=== PATIENT | female | born 1980 | race Asian ===

== ENCOUNTER 2020-08-30 14:51 | Emergency (ER) | payer OTHER, SELFPAY ==
[2020-08-30 15:10] VITALS: BP 143/95; PULSE 90; RESP 17; TEMP 37.4; O2SAT 96; BMI 33.6
--- NOTE | 2020-08-30 15:27 | ED.URI ---
HPI - URI/Sore Throat General Chief Complaint: Upper Respiratory Symptoms Stated Complaint: sore throat,body ache,dizzy Time Seen by Provider: 08/30/20 15:00 Source: patient Mode of arrival: ambulatory Limitations: no limitations History of Present Illness HPI Narrative: bodyaches for past 2 days, lightheaded MD elicited complaint: fever Onset (ago): day(s) Consistency: constant Severity: mild Associated symptoms: chills Related Data Allergies Allergy/AdvReac Type Severity Reaction Status Date / Time No Known Allergies Allergy Mild NOT Unverified 07/15/20 16:57 [No Known Allergies*] APPLICABLE Review of Systems Constitutional: Constitutional: Reports no additional constitutional complaints Eyes: Eyes: Reports no additional eye complaints ENT: Denies dizziness Cardiovascular: Cardiovascular: Reports no additional cardiovascular complaints Respiratory: Respiratory: Reports as per HPI Gastrointestinal: Gastrointestinal: Reports no additional gastrointestinal complaints Genitourinary: Genitourinary: Reports no additional female genitourinary complaints Musculoskeletal: Musculoskeletal: Reports no additional musculoskeletal complaints Integumentary/Breasts: Skin/Breast: Denies rash Neurologic: Reports system reviewed and no additional complaints, except as documented, Denies dizziness and Denies Sensory deficit (Neuro) Psychiatric: Psychiatric: Denies anxiety PMF Past Medical History Medical History (Updated 08/30/20 @ 15:43 by Vinicio Solano MD) HTN (hypertension) Social History Social History Smoking Status: Never smoker Use of substances other than those prescribed or required for medical reasons: No Advance Directives: No Advance Directives Information Provided: Yes Physical Exam Vital Signs: Vital Signs: Vital Signs Temp Pulse Resp BP Pulse Ox 08/30/20 15:10 99.3 F 90 17 143/95 H 96 Body Mass Index 33.6 Const: General: healthy appearing Nutritional Appearance: average body habitus Orientation/consciousness: oriented to person and patient oriented x3 Limitations: no limitations HENMT: Head: Yes normal to inspection Ears: external ears normal General nose exam: Normal external nose present Mouth: Normal oral and palatal mucosa present and oropharynx normal Throat: Yes posterior oropharynx normal Eyes: General: appearance normal, both eyes and all related structures Neck: Other: supple Neck: Yes normal visual inspection Chest: Chest palpation & inspection: normal inspection of the chest Resp: Auscultation: clear to auscultation bilaterally Cardio: Jugular venous distension: no JVD Rate: regular rate Rhythm: regular rhythm Heart sounds: S1 normal heart sound present and S2 normal heart sound present GI: Inspection: Yes normal to inspection Palpation (GI): Soft to palpation, nontender and No hepatosplenomegaly present Auscultation: normal bowel sounds : General: Yes no CVA tenderness Back/Spine/Pelvis: Back: no CVA tenderness Skin: General skin exam: no rashes or lesions noted Neuro: General: oriented to person and patient oriented x3 Cranial nerves: Yes CN's II-XII intact bilaterally Motor exam (neuro): 5/5 motor strength present throughout Sensory Exam: No Sensory deficit (Neuro) Extrem: General: Yes normal to inspection Psych: Appearance: grossly normal Course Course Course Narrative: patient is weak and tired consistent with COVID MDM - URI/Sore Throat MDM Narrative Medical decision making narrative: likely COVID, not hypoxic or toxic appearing Differential Diagnosis Differential diagnosis: Likely upper respiratory infection Discharge Plan Discharge Clinical Impression: COVID-19 Patient Disposition: Home, Self-Care Instructions: COVID-19 (Coronavirus Disease 2019) (ED) Referrals: Liza Mosquera MD [Primary Care Provider] - 2 days
--- NOTE | 2020-08-30 16:07 | PC.NURSE ---
patient seen and evaluated by provider, covid swab completed. patient discharged yet states very dizzy. will f/u with provider
[2020-08-30 16:25] VITALS: BP 145/98; PULSE 80; RESP 19; TEMP 37.1; O2SAT 98
[2020-08-30 16:28] VITALS: BP 149/97; PULSE 94
== END 2020-08-30 16:40 | disposition home or self-care (01) ==
PROVIDERS: Emergency Provider Emergency Medicine; PCP Internal Medicine
DX: U07.1 COVID-19 (principal); R42 Dizziness and giddiness
CPT/HCPCS: 99283; U0003

== ENCOUNTER 2020-09-02 10:48 | Emergency (ER) | payer OTHER, SELFPAY ==
[2020-09-02 11:05] VITALS: BP 140/107; BP 146/89; PULSE 84; PULSE 99; RESP 22; TEMP 37.1; O2SAT 100; O2SAT 99; BMI 33.4
--- NOTE | 2020-09-02 11:15 | XR_ITS ---
EXAMINATION: XR CHEST CLINICAL INFORMATION: Shortness of breath, COVID+ COMPARISON: Chest radiographs 05/12/2019, 01/29/2019, CT abdomen 06/01/2020 TECHNIQUE: Portable upright AP view of the chest was obtained. FINDINGS: There are low lung volumes. There is likely subsegmental atelectasis right lateral base versus subtle groundglass opacity. There is no lobar or segmental airspace consolidation or visible effusion. The heart is normal in size. The vascularity is normal. The hilar and mediastinal contours are normal. No visible acute bony abnormality. XR/XR chest 1V IMPRESSION: Low lung volumes. Subsegmental atelectasis right lateral base versus small groundglass opacity. Visualized lungs otherwise clear.
--- NOTE | 2020-09-02 11:16 | ED.GENADULT ---
HPI - General Adult General Chief complaint: Dyspnea Stated complaint: SOB, COVID + Time Seen by Provider: 09/02/20 10:57 Source: patient Mode of arrival: EMS Limitations: no limitations History of Present Illness HPI narrative: patient comes to the emergency room complaining of shortness of breath. Patient tested positive for COVID 19 on 08/30/2020. Patient states since then, she has developed cough and shortness of breath which she did not have before. MD complaint: Dyspnea Related Data Previous Rx's Medication Instructions Recorded azithromycin See Rx Instructions .ROUTE 09/02/20 .COMPLEX #6 tab Allergies Allergy/AdvReac Type Severity Reaction Status Date / Time No Known Allergies Allergy Mild NOT Unverified 07/15/20 16:57 [No Known Allergies*] APPLICABLE Review of Systems Review of Systems: Constitutional : No Weight loss, complaining of chills, fatigue and general malaise ENT/Mouth : No Hearing loss, No Ear Pain, No Nasal Congestion, No Sinus Pain, No Hoarseness, No sore throat, No Rhinorrhea, No Swallowing Difficulty Eyes: No Eye Pain, No Swelling, No Redness, No Foreign Body, No Discharge, No Vision Changes Cardiovascular : No Chest Pain, No SOB, No Dyspnea on Exertion, No Orthopnea, No Edema, No Palpitations Respiratory : patient complaining of more coughing, no wheezing, continues dyspnea regardless of exertion Gastrointestinal : No Nausea, No Vomiting, No Diarrhea, No Constipation, No abdominal Pain, No Hematochezia, No Melena Genitourinary : no irregular bleeding, No Dysuria, No Urinary Frequency, No Hematuria, No Urinary Incontinence, No Urgency, No Flank Pain, No Urinary Flow Changes, No Hesitancy Musculoskeletal : No joint pain, No Myalgias, No Joint Swelling Skin : No Skin Lesions, No rash Neuro : No Weakness, No Numbness, No Paresthesias, No Loss of Consciousness, No Dizziness, No Headache Psych : No Anxiety/Panic, No Depression, No SI/HI/AH/VH, No Social Issues, Heme/Lymph: No Bruising, No Bleeding,No Lymphadenopathy Endocrine : No Polyuria, No Polydipsia, No Temperature Intolerance PMFSH Past Medical History Medical History (Updated 09/02/20 @ 13:59 by Kayla Leo MD) HTN (hypertension) Social History Social History Smoking Status: Never smoker Advance Directives: No Advance Directives Information Provided: No Physical Exam Vital Signs: Vital Signs: Vital Signs Temp Pulse Resp BP Pulse Ox 09/02/20 12:14 98.7 F 83 16 142/88 H 99 09/02/20 11:05 98.7 F 99 22 H 146/89 H 99 Body Mass Index 33.4 Appearance: Alert. Oriented X3. No acute distress. anxious. Eyes: Pupils equal, round and reactive to light. ENT: Pharynx normal. Neck: Normal inspection. Neck supple. No lymph nodes noted. No crepitus CVS: Normal heart rate and rhythm. Pulses normal. Normal S1 and S2 Respiratory: No respiratory distress. Breath sounds normal. No Wheezing. No rales Abdomen: Soft and nontender. No rigidity. No distention. good BS x4 Skin: Skin warm and dry. Normal skin color. Normal skin turgor. Extremities: No lower extremity edema. No lower extremity edema. No Lacerations. No Rash Neuro: Oriented X 3. No motor deficit. No sensory deficit. Moving all extermities. No slurred speech. Course Course Course Narrative: I discussed the labs imaging with the patient, chest x-ray consistent with COVID 19. patient's oxygen saturation remains 97% on room air. At this time PE is unlikely, D-dimer 221, patient is tachycardic. patient will be discharged home with antibiotic. Medical Decision Making Lab Data Result diagrams: 09/02/20 12:02 09/02/20 12:02 Labs: Lab Results 09/02/20 09/02/20 09/02/20 Range/Units 12:02 12:02 12:02 WBC 4.2 L (4.8-10.8) X10*3/uL RBC 5.16 (4.20-5.50) X10*6/uL Hgb 12.9 (12.0-16.0) g/dl Hct 39.5 (37-47) % MCV 76.6 L (80-98) fL MCH 25.0 L (27.0-33.0) pg MCHC 32.7 (31.0-35.0) g/dl RDW 14.2 (11.0-16.0) % Plt Count 230 (160-400) X10*3/uL MPV 10.1 (9.4-12.3) fL Immature Gran % (Auto) 0.2 (0.0-0.4) % Neut % (Auto) 60.5 (45-73) % Lymph % (Auto) 30.9 (20-40) % Jefferson % (Auto) 8.2 (2-11) % Eos % (Auto) 0.0 (0-4) % Baso % (Auto) 0.2 (0-2) % Lymph # (Auto) 1.3 (1.2-4.9) X10*3/uL Jefferson # (Auto) 0.3 (0.1-1.2) X10*3/uL Eos # (Auto) 0.0 (0.0-0.4) X10*3/uL Baso # (Auto) 0.0 (0.0-0.2) X10*3/uL Abs Immat Gran (auto) 0.01 (0.00-0.03) X10*3/uL Absolute Neuts (auto) 2.5 (2.0-8.3) X10*3/uL Absolute Nucleated RBC 0.000 (0.0-0.012) X10*3/uL Nucleated RBC % (auto) 0.0 (0.0-0.2) /100WBC D-Dimer 221 NG/ML Sodium 138 (135-145) mmol/L Potassium 3.5 (3.3-5.1) mmol/l Chloride 104 (96-108) mmol/L Carbon Dioxide 24 (22-29) mmol/L Anion Gap 14 (12-20) BUN 8 L (9-16) mg/dL Creatinine 0.73 (0.5-1.4) mg/dL Estim Creat Clear Calc 110.2 Estimated GFR > 60 Random Glucose 95 (60-115) mg/dL Calcium 7.9 L (8.4-10.2) mg/dL Discharge Plan Discharge Clinical Impression: COVID-19 Patient Disposition: Home, Self-Care Instructions: COVID-19 (Coronavirus Disease 2019) (ED) Additional Instructions: if you have any worsening shortness of breath, any new symptoms, please return to the emergency room or call 911 Prescriptions: New azithromycin 250 mg tablet See Rx Instructions .ROUTE .COMPLEX Qty: 6 RF: 0
[2020-09-02 12:07] LABS: MANUAL DIFF FLAG NO
[2020-09-02 12:11] LABS: Basophils Percent Auto 0.2 % (0-2); Hematocrit 39.5 % (37-47); Hemoglobin 12.9 g/dl (12.0-16.0); Imm Gran Abs Auto 0.01 X10*3/uL (0.00-0.03); Imm Gran Pct Auto 0.2 % (0.0-0.4); Lymphocytes Absolute Auto 1.3 X10*3/uL (1.2-4.9); Lymphocytes Percent Auto 30.9 % (20-40); Mean Corpuscular HGB Conc 32.7 g/dl (31.0-35.0); Mean Corpuscular Volume 76.6 fL (80-98); Mean Platelet Volume 10.1 fL (9.4-12.3); Monocytes Absolute Auto 0.3 X10*3/uL (0.1-1.2); Monocytes Percent Auto 8.2 % (2-11); Neutrophils Absolute Auto 2.5 X10*3/uL (2.0-8.3); Neutrophils Percent Auto 60.5 % (45-73); Platelet Count 230 X10*3/uL (160-400); Red Blood Count 5.16 X10*6/uL (4.20-5.50); Red Cell Distribution Width 14.2 % (11.0-16.0); White Blood Count 4.2 X10*3/uL (4.8-10.8)
[2020-09-02 12:14] VITALS: BP 142/88; PULSE 83; RESP 16; TEMP 37.1; O2SAT 99
[2020-09-02 12:17] LABS: D Dimer 221 NG/ML
[2020-09-02 12:29] LABS: Anion Gap 14 (12-20); Blood Urea Nitrogen 8 mg/dL (9-16); Calcium 7.9 mg/dL (8.4-10.2); Carbon Dioxide 24 mmol/L (22-29); Chloride 104 mmol/L (96-108); Creatinine Clr Calc Pharmacy 110.2; Estimated Glomerular Filt Rate > 60; Glucose Random 95 mg/dL (60-115); Potassium 3.5 mmol/l (3.3-5.1); Sodium 138 mmol/L (135-145)
[2020-09-02] MEDS: Acetaminophen 325 MG TABLET 650 MG PO (15:08)
[2020-09-02 15:35] VITALS: BP 117/72; PULSE 88; RESP 16; TEMP 37.2; O2SAT 98
== END 2020-09-02 15:38 | disposition home or self-care (01) ==
PROVIDERS: Emergency Provider Emergency Medicine
DX: R06.02 Shortness of breath (principal); Z20.828 Contact with and (suspected) exposure to other viral communicable diseases
CPT/HCPCS: 36415; 71045; 80048; 85025; 85379; 99283; 99284

== ENCOUNTER 2020-09-12 11:09 | Emergency (ER) | payer OTHER, SELFPAY ==
[2020-09-12 11:31] VITALS: BP 138/84; PULSE 76; RESP 20; TEMP 36.4; O2SAT 99; BMI 33.6
--- NOTE | 2020-09-12 11:50 | ECG_ITS ---
Test Reason : WEAKNESS Blood Pressure : / mmHG Vent. Rate : 057 BPM Atrial Rate : 057 BPM P-R Int : 150 ms QRS Dur : 084 ms QT Int : 414 ms P-R-T Axes : 014 054 069 degrees QTc Int : 402 ms Sinus bradycardia Otherwise normal ECG When compared with ECG of 12-MAY-2019 20:33, No significant change was found Referred By: Cindy Galarza Electronically Signed By:LUIS NJ MD
[2020-09-12 12:12] VITALS: BP 142/80; PULSE 65
[2020-09-12 12:15] VITALS: BP 151/88; PULSE 65
[2020-09-12 12:17] VITALS: BP 134/76; PULSE 68
[2020-09-12 12:35] LABS: Basophils Percent Auto 0.5 % (0-2); Eosinophils Percent Auto 0.7 % (0-4); Hematocrit 39.6 % (37-47); Hemoglobin 12.9 g/dl (12.0-16.0); Imm Gran Abs Auto 0.03 X10*3/uL (0.00-0.03); Imm Gran Pct Auto 0.5 % (0.0-0.4); Lymphocytes Absolute Auto 1.7 X10*3/uL (1.2-4.9); Lymphocytes Percent Auto 28.5 % (20-40); MANUAL DIFF FLAG NO; Mean Corpuscular HGB Conc 32.6 g/dl (31.0-35.0); Mean Corpuscular Hemoglobin 25.3 pg (27.0-33.0); Mean Corpuscular Volume 77.6 fL (80-98); Mean Platelet Volume 9.4 fL (9.4-12.3); Monocytes Absolute Auto 0.3 X10*3/uL (0.1-1.2); Monocytes Percent Auto 5.8 % (2-11); Neutrophils Absolute Auto 3.8 X10*3/uL (2.0-8.3); Platelet Count 349 X10*3/uL (160-400); Red Cell Distribution Width 14.4 % (11.0-16.0); White Blood Count 5.9 X10*3/uL (4.8-10.8)
[2020-09-12 12:43] LABS: Prothrombin Time 12.4 SEC (10.8-13.0)
--- NOTE | 2020-09-12 12:45 | ED.DIZZY ---
HPI - Dizziness General Chief Complaint: Dizziness Stated Complaint: WEAKNESS COVID 19 POS Time Seen by Provider: 09/12/20 11:49 Source: patient Mode of arrival: ambulatory Limitations: no limitations History of Present Illness HPI Narrative: 39yoF c PMHX of HTN, ovarian cyst, kidney stones and currently COVID positive diagnosed on 08/30/2020 here in the ED presenting to the ED c c/o dizziness c associated SOB on exertion days worse today. Denies shortness of breath while sitting still or lying down. Patient reports the dizziness is all the time it is not relieved by anything. Denies changes in vision, nausea/vomiting, chest pain, cough, sputum production, abdominal pain, diarrhea or any other symptoms complaints or concerns. Related Data Previous Rx's Medication Instructions Recorded azithromycin See Rx Instructions .ROUTE 09/02/20 .COMPLEX #6 tab acetaminophen [Tylenol] 650 mg PO Q6H PRN #10 tab 09/12/20 albuterol sulfate 0.63 mg INHALATION QID PRN #90 ml 09/12/20 cyclobenzaprine 10 mg PO TID PRN #10 tab 09/12/20 doxycycline monohydrate 100 mg PO BID 10 Days #20 cap 09/12/20 Allergies Allergy/AdvReac Type Severity Reaction Status Date / Time No Known Allergies Allergy Mild NOT Unverified 07/15/20 16:57 [No Known Allergies*] APPLICABLE Review of Systems Review of Systems: Constitutional : No Fever, No Chills, No Night Sweats, + Fatigue, + Malaise ENT/Mouth : No Ear Pain, No Nasal Congestion, No Sinus Pain, No sore throat, No Rhinorrhea Eyes: No Eye Pain, No Swelling, No Redness, No Foreign Body, No Discharge, No Vision Changes Cardiovascular : No Chest Pain, + SOB, + Dyspnea on Exertion, No Orthopnea, No Palpitations Respiratory : No Cough, No Sputum, No Wheezing, No Dyspnea Gastrointestinal : No Nausea, No Vomiting, No Diarrhea, No Constipation, No abdominal Pain, No Hematochezia, No Melena Genitourinary : No Dysuria, No Urinary Frequency, No Urinary Incontinence, No Urgency, No Flank Pain Musculoskeletal : No joint pain, No Myalgias Skin : No lacerations Neuro : No Numbness, No Paresthesias, No Loss of Consciousness, + Dizziness, No Headache Yes all other systems are reviewed and are negative PMFSH Past Medical History Attestation statement: The following information was validated with the patient. Medical History HTN (hypertension) Social History Social History Alcohol intake: unknown Smoking Status: Never smoker Smoked in Last 30 Days: No Use of substances other than those prescribed or required for medical reasons: No Advance Directives: Yes Advance Directives Information Provided: No Advance Directives on File: No Physical Exam Vital Signs: Vital Signs: Last Vital Signs Temp 97.6 F 09/12/20 11:31 Pulse 68 09/12/20 14:41 Resp 16 09/12/20 14:41 BP 140/80 H 09/12/20 14:41 Pulse Ox 99 09/12/20 14:41 Body Mass Index 33.6 Vital signs have been reviewed as normal and appeared to be correct. Blood pressure normal. Heart rate normal. Respiration rate normal. Temperature normal. Oxygen saturation normal. Appearance: Alert. Oriented X3. No acute distress. Head: Normal external exam. Normocephalic. Atraumatic. Able to rotate head bilaterally. Eyes: PERRLA. EOMI. No nystagmus noted. Conjunctiva and sclera normal. Eyelids normal. Corneal reflex normal. ENT: EAC normal. TM's Normal. Hearing normal. Pharynx normal. Uvula midline. tongue midline. Moist mucous membranes. No trismus noted. No drooling noted. No muffled voice noted. Neck: Normal inspection. Neck supple. FROM. No adenopathy. Thyroid Normal. No meningeal signs. No neck mass noted. CVS: Normal heart rate and rhythm. Heart sound normal. No murmurs noted. Pulses normal throughout. Respiratory: No respiratory distress. Painless inspiration. Breath sounds normal. No wheezes/rales/rhonchi noted. Chest nontender. No accessory muscle usage noted or decreased air movement noted. Abdomen: Soft and nontender. Bowel sounds normal in all 4 quadrants. No distention noted. No organomegaly noted. No visible injury noted. Back: No CVA tenderness. Full range of motion noted. Skin: Skin warm and dry. Normal skin color. Normal skin turgor. No rashes/lesions/lacerations noted. Extremities: No lower extremity edema. Extremities exhibit normal range of motion. Extremities nontender. Able to shrug shoulders bilaterally and keep up against resistance. Neuro: Oriented X 3. No motor deficit. No sensory deficit. Reflexes normal. Moving all extremities. No focal motor deficits. Cranial nerves II-XI intact bilaterally. Facial strength normal. Normal cognition. Speech normal. Gait normal. Strength 5/5 throughout. No pronator drift. No tremor noted. No fasciculations noted. Muscle tone normal throughout. No asterixis noted. Huxzel-hn-tsdo test normal. Heel to west test normal. Tandem gait normal. Does not sway with eyes open. Romberg test negative. Rapid alternating movement upper extremity normal. Rapid alternating movement lower extremity normal. Hand drop from overhead-Mrs. face. No rigidity noted. NIHSS score 0. Course Course Course Narrative: 12:30PM - 39yoF c PMHX of HTN, ovarian cyst, kidney stones and currently COVID positive diagnosed on 08/30/2020 here in the ED presenting to the ED c c/o dizziness c associated SOB on exertion days worse today. Denies shortness of breath while sitting still or lying down. Patient reports the dizziness is all the time it is not relieved by anything. - Concern for PE vs PNA vs CVA vs electrolyte abnormality vs orthostatic hypotension. - Plan: Labs, CXR, EKG,UA, UHCG. Provide 500 mL of IV fluids then re-evaluate. Reevaluation(s) Reevaluation #1: - D-Dimer elevated at 265. All other labs WNL. Therefore CTA of chest to evaluate for possible PE ordered at this time. - awaiting CTA of chest to evaluate for possible PE then re-evaluate. Time: 16:25 Reevaluation #2: CT scan of brain within normal limits no acute processes noted. Chest CT revealed lung nodules otherwise no PEs or any other acute processes therefore explained to the patient that she needs a repeat CT with sampling within 3 months and I gave her a copy of this report. Patient understands agrees with plan. Patient reports she feels better after IV fluids. Will DC home with instructions to return if any new or worsening symptoms follow-up with primary care provider about her CT results. Patient understands agrees with this plan. Time: 17:20 [facility] - Dizziness Medical Records Attestation: I reviewed the patient's medical records. Lab Data Attestation: I reviewed the patient's lab results. Result diagrams: 09/12/20 12:29 09/12/20 14:56 Labs: Lab Results 09/12/20 09/12/20 09/12/20 Range/Units 12:29 12:29 12:29 WBC 5.9 (4.8-10.8) X10*3/uL RBC 5.10 (4.20-5.50) X10*6/uL Hgb 12.9 (12.0-16.0) g/dl Hct 39.6 (37-47) % MCV 77.6 L (80-98) fL MCH 25.3 L (27.0-33.0) pg MCHC 32.6 (31.0-35.0) g/dl RDW 14.4 (11.0-16.0) % Plt Count 349 D (160-400) X10*3/uL MPV 9.4 (9.4-12.3) fL Immature Gran % (Auto) 0.5 H (0.0-0.4) % Neut % (Auto) 64.0 (45-73) % Lymph % (Auto) 28.5 (20-40) % [place] % (Auto) 5.8 (2-11) % Eos % (Auto) 0.7 (0-4) % Baso % (Auto) 0.5 (0-2) % Lymph # (Auto) 1.7 (1.2-4.9) X10*3/uL [place] # (Auto) 0.3 (0.1-1.2) X10*3/uL Eos # (Auto) 0.0 (0.0-0.4) X10*3/uL Baso # (Auto) 0.0 (0.0-0.2) X10*3/uL Abs Immat Gran (auto) 0.03 (0.00-0.03) X10*3/uL Absolute Neuts (auto) 3.8 (2.0-8.3) X10*3/uL Absolute Nucleated RBC 0.000 (0.0-0.012) X10*3/uL Nucleated RBC % (auto) 0.0 (0.0-0.2) /100WBC Hold Purple Top SEE NOTE PT (10.8-13.0) SEC INR (0.9-1.1) D-Dimer NG/ML Sodium Cancelled Potassium Cancelled Chloride Cancelled Carbon Dioxide Cancelled Anion Gap Cancelled BUN Cancelled Creatinine Cancelled Estim Creat Clear Calc Cancelled Estimated GFR Cancelled Random Glucose Cancelled Calcium Cancelled Magnesium Total Bilirubin Direct Bilirubin AST ALT Alkaline Phosphatase Troponin I High Sens (<3.5-17.0) ng/L Total Protein Albumin Beta HCG, Quant mIU/mL 09/12/20 09/12/20 09/12/20 Range/Units 12:29 12:29 12:29 WBC (4.8-10.8) X10*3/uL RBC (4.20-5.50) X10*6/uL Hgb (12.0-16.0) g/dl Hct (37-47) % MCV (80-98) fL MCH (27.0-33.0) pg MCHC (31.0-35.0) g/dl RDW (11.0-16.0) % Plt Count (160-400) X10*3/uL MPV (9.4-12.3) fL Immature Gran % (Auto) (0.0-0.4) % Neut % (Auto) (45-73) % Lymph % (Auto) (20-40) % [place] % (Auto) (2-11) % Eos % (Auto) (0-4) % Baso % (Auto) (0-2) % Lymph # (Auto) (1.2-4.9) X10*3/uL [place] # (Auto) (0.1-1.2) X10*3/uL Eos # (Auto) (0.0-0.4) X10*3/uL Baso # (Auto) (0.0-0.2) X10*3/uL Abs Immat Gran (auto) (0.00-0.03) X10*3/uL Absolute Neuts (auto) (2.0-8.3) X10*3/uL Absolute Nucleated RBC (0.0-0.012) X10*3/uL Nucleated RBC % (auto) (0.0-0.2) /100WBC Hold Purple Top PT 12.4 (10.8-13.0) SEC INR 1.0 (0.9-1.1) D-Dimer 265 Cancelled NG/ML Sodium Potassium Chloride Carbon Dioxide Anion Gap BUN Creatinine Estim Creat Clear Calc Estimated GFR Random Glucose Calcium Magnesium Cancelled Total Bilirubin Cancelled Direct Bilirubin Cancelled AST Cancelled ALT Cancelled Alkaline Phosphatase Cancelled Troponin I High Sens (<3.5-17.0) ng/L Total Protein Cancelled Albumin Cancelled Beta HCG, Quant mIU/mL 09/12/20 09/12/20 Range/Units 12:29 14:56 WBC (4.8-10.8) X10*3/uL RBC (4.20-5.50) X10*6/uL Hgb (12.0-16.0) g/dl Hct (37-47) % MCV (80-98) fL MCH (27.0-33.0) pg MCHC (31.0-35.0) g/dl RDW (11.0-16.0) % Plt Count (160-400) X10*3/uL MPV (9.4-12.3) fL Immature Gran % (Auto) (0.0-0.4) % Neut % (Auto) (45-73) % Lymph % (Auto) (20-40) % [place] % (Auto) (2-11) % Eos % (Auto) (0-4) % Baso % (Auto) (0-2) % Lymph # (Auto) (1.2-4.9) X10*3/uL [place] # (Auto) (0.1-1.2) X10*3/uL Eos # (Auto) (0.0-0.4) X10*3/uL Baso # (Auto) (0.0-0.2) X10*3/uL Abs Immat Gran (auto) (0.00-0.03) X10*3/uL Absolute Neuts (auto) (2.0-8.3) X10*3/uL Absolute Nucleated RBC (0.0-0.012) X10*3/uL Nucleated RBC % (auto) (0.0-0.2) /100WBC Hold Purple Top PT (10.8-13.0) SEC INR (0.9-1.1) D-Dimer NG/ML Sodium 137 Potassium 5.1 D Chloride 109 H Carbon Dioxide 17 L Anion Gap 16 BUN 9 Creatinine 0.72 Estim Creat Clear Calc 108.0 Estimated GFR > 60 Random Glucose 100 Calcium 8.4 D Magnesium 2.1 Total Bilirubin 0.3 Direct Bilirubin < 0.2 AST 23 ALT 17 Alkaline Phosphatase 88 Troponin I High Sens < 3.5 (<3.5-17.0) ng/L Total Protein 7.5 Albumin 3.8 Beta HCG, Quant < 2 mIU/mL Imaging Data Chest x-ray: Attestation: I personally reviewed and interpreted this imaging study as follows: Radiologist's impression: Tubes and lines: None Lungs and Marita: Both lungs are clear. Pleura: Normal. Costophrenic angles are sharp. No pneumothorax. Heart and mediastinum: The mediastinum is within normal limits.. Bones: Skeletal structures included are normal for patient's age. XR/XR chest 1V IMPRESSION: Normal chest x-ray. No evidence of acute infiltrates or failure. chest ct: Attestation: I personally reviewed and interpreted this imaging study as follows: Radiologist's impression: FINDINGS: QUALITY OF STUDY/CONTRAST BOLUS: Satisfactory. PULMONARY ARTERIES: No central or segmental pulmonary emboli. THORACIC AORTA: No aneurysm or dissection. LUN adjacent subpleural slightly ill-defined rounded opacity seen involving the the superior segment of the right lower lobe ranging in size from 5 mm to 9 mm. These are most likely inflammatory, but follow-up should be performed via Fleischner Society criteria. No other lung masses or infiltrates are seen. Dependent atelectasis is present bilaterally. PLEURA: No pleural effusion or pneumothorax. MEDIASTINUM: Normal heart size. No pericardial effusion. No hilar or mediastinal lymphadenopathy. No evidence of septal bowing or right heart strain. CHEST WALL/AXILLA: No axillary or internal mammary lymphadenopathy. OSSEOUS STRUCTURES: No acute or suspicious osseous abnormality. UPPER ABDOMEN: Unremarkable. No reflux of contrast into the hepatic veins to suggest elevated right heart pressures. CT/CT angio chest PE protocol IMPRESSION: 1. No evidence of pulmonary emboli. 2. Three adjacent subpleural slightly ill-defined nodular densities superior segment right lower lobe. I suspect that these are inflammatory but follow-up via Fleischner Society criteria is recommended. Given their appearance, I believe that a repeat chest CT in 3 months would suffice. According to the UPDATED 2017 Fleischner Society recommendations, the advised follow-up imaging for a single solid nodule measuring 8 mm or greater is: Consider CT, PET/CT, or tissue sampling at 3 months. VTE: negative brain ct: Attestation: I personally reviewed and interpreted this imaging study as follows: Radiologist's impression: FINDINGS: No evidence of intracranial hemorrhage or extra-axial fluid collection. No evidence of mass lesion, mass effect or midline shift. No acute territorial infarction. The ventricles are symmetric in configuration and normal in size. The basal cisterns are patent. The calvarium is intact. Limited views of the paranasal sinuses demonstrate mucous retention cysts versus polyps within the left maxillary sinus. This was partially visible on the prior study. Mastoid air cells are well aerated and middle ear cavities are clear. Limited views of the orbits are unremarkable. CT/CT head/brain wo con IMPRESSION: No acute intracranial pathology. ECG Data Attestation: I personally reviewed and interpreted this ECG as follows: ECG interpretation date: 09/12/20 ECG interpretation time: 12:47 Interpretation: Sinus bradycardia with a ventricular rate of 57 with normal p.r.n. avoid a normal QRS duration normal QTC/QT interval. No acute ischemic changes noted. Critical Care Time Critical Care Time Critical Care Time: Yes Total Critical Care Time: 60 Attestation: I personally attest to this time spent taking care of the patient Discharge Plan Discharge Clinical Impression: COVID-19, Lung nodule, Acute dyspnea, Dizziness Patient Disposition: Home, Self-Care Instructions: Dyspnea (ED), Dizziness (ED), Pulmonary Nodules (ED), COVID-19 (Coronavirus Disease 2019) (ED) Additional Instructions: You need a repeat CT scan within 3 months and possibly sampling for your lung nodules. I gave you a copy of the CT scan results please bring to her primary care provider. Return if any new or worsening symptoms. Prescriptions: New cyclobenzaprine 10 mg tablet 10 mg PO TID PRN (Reason: muscle spasm) Qty: 10 RF: 0 doxycycline monohydrate 100 mg capsule 100 mg PO BID 10 Days Qty: 20 RF: 0 acetaminophen [Tylenol] 325 mg tablet 650 mg PO Q6H PRN (Reason: fever or pain) Qty: 10 RF: 0 albuterol sulfate 0.63 mg/3 mL solution for nebulization 0.63 mg inhalation QID PRN (Reason: shortness of breath or wheezing) Qty: 90 RF: 0 No Action azithromycin 250 mg tablet See Rx Instructions .ROUTE .COMPLEX Qty: 6 RF: 0 Referrals: Liza Mosquera MD [Primary Care Provider] - 2 days (Lung nodules on CT scan needs repeating CT scan within 3 months and possibly sampling) Stand Alone Forms: Work/School Release Print Language: Yi
[2020-09-12 12:51] LABS: D Dimer 265 NG/ML
--- NOTE | 2020-09-12 12:53 | XR_ITS ---
EXAMINATION: XR chest 1V CLINICAL INFORMATION: Shortness of breath COMPARISON: Prior chest x-ray 09/02/2020 TECHNIQUE: XR chest 1V Tubes and lines: None Lungs and Marita: Both lungs are clear. Pleura: Normal. Costophrenic angles are sharp. No pneumothorax. Heart and mediastinum: The mediastinum is within normal limits.. Bones: Skeletal structures included are normal for patient's age. XR/XR chest 1V IMPRESSION: Normal chest x-ray. No evidence of acute infiltrates or failure.
[2020-09-12] MEDS: 0.9 % Sodium Chloride 1,000 ML 500 ML IVCONT (13:00)
--- NOTE | 2020-09-12 13:28 | CT_ITS ---
EXAMINATION: CT ANGIOGRAM OF THE CHEST WITH AND WITHOUT CONTRAST (CT PULMONARY ANGIOGRAM FOR PE) CLINICAL INFORMATION: Reason for Exam pt c sob on exertion + covid ? PE eleavted D-dimer COMPARISON: Chest radiograph today, CT abdomen pelvis 06/01/2020 TECHNIQUE: Prior to contrast administration, noncontrast localization images were obtained. Subsequently, multidetector volumetric imaging was performed from the thoracic inlet to below the diaphragms following the administration of 69 mLOmnipaque 350 intravenous contrast. No contrast reaction reported Sagittal, coronal, and MIP oblique sagittal reformatted images were obtained on the CT workstation, uploaded to PACS, and reviewed. This CT examination was performed using dose optimization techniques as appropriate, variously including the following: *Automated exposure control *Adjustment of mA and/or kV according to patient size (this includes techniques or standardized protocols for targeted exams where dose is matched to indication/reason for exam; i.e. extremities or head) *Use of iterative reconstruction technique Total exam dose-length product 439 mGy-cm FINDINGS: QUALITY OF STUDY/CONTRAST BOLUS: Satisfactory. PULMONARY ARTERIES: No central or segmental pulmonary emboli. THORACIC AORTA: No aneurysm or dissection. LUN adjacent subpleural slightly ill-defined rounded opacity seen involving the the superior segment of the right lower lobe ranging in size from 5 mm to 9 mm. These are most likely inflammatory, but follow-up should be performed via Fleischner Society criteria. No other lung masses or infiltrates are seen. Dependent atelectasis is present bilaterally. PLEURA: No pleural effusion or pneumothorax. MEDIASTINUM: Normal heart size. No pericardial effusion. No hilar or mediastinal lymphadenopathy. No evidence of septal bowing or right heart strain. CHEST WALL/AXILLA: No axillary or internal mammary lymphadenopathy. OSSEOUS STRUCTURES: No acute or suspicious osseous abnormality. UPPER ABDOMEN: Unremarkable. No reflux of contrast into the hepatic veins to suggest elevated right heart pressures. CT/CT angio chest PE protocol IMPRESSION: 1. No evidence of pulmonary emboli. 2. Three adjacent subpleural slightly ill-defined nodular densities superior segment right lower lobe. I suspect that these are inflammatory but follow-up via Fleischner Society criteria is recommended. Given their appearance, I believe that a repeat chest CT in 3 months would suffice. According to the UPDATED 2017 Fleischner Society recommendations, the advised follow-up imaging for a single solid nodule measuring 8 mm or greater is: Consider CT, PET/CT, or tissue sampling at 3 months. VTE: negative
--- NOTE | 2020-09-12 13:28 | CT_ITS ---
EXAMINATION: CT HEAD WITHOUT CONTRAST CLINICAL INFORMATION: Dizziness COMPARISON: None TECHNIQUE: Contiguous axial imaging was performed from the skull base to vertex without intravenous administration of contrast. This CT examination was performed using dose optimization techniques as appropriate, variously including the following: *Automated exposure control *Adjustment of mA and/or kV according to patient size (this includes techniques or standardized protocols for targeted exams where dose is matched to indication/reason for exam; i.e. extremities or head) *Use of iterative reconstruction technique DLP: 668 mGy-cm FINDINGS: No evidence of intracranial hemorrhage or extra-axial fluid collection. No evidence of mass lesion, mass effect or midline shift. No acute territorial infarction. The ventricles are symmetric in configuration and normal in size. The basal cisterns are patent. The calvarium is intact. Limited views of the paranasal sinuses demonstrate mucous retention cysts versus polyps within the left maxillary sinus. This was partially visible on the prior study. Mastoid air cells are well aerated and middle ear cavities are clear. Limited views of the orbits are unremarkable. CT/CT head/brain wo con IMPRESSION: No acute intracranial pathology.
[2020-09-12 14:10] LABS: Troponin-I High Sensitivity < 3.5 ng/L (<3.5-17.0)
[2020-09-12 14:41] VITALS: BP 140/80; PULSE 68; RESP 16; O2SAT 99
[2020-09-12 15:25] LABS: Alanine Aminotransferase 17 U/L (0-31); Albumin Level 3.8 g/dL (3.5-5.0); Alkaline Phosphatase 88 U/L (39-117); Anion Gap 16 (12-20); Aspartate Amino Transferase 23 U/L (5-31); Bilirubin Direct < 0.2 mg/dL (0.0-0.5); Bilirubin Total 0.3 mg/dL (0.0-1.0); Blood Urea Nitrogen 9 mg/dL (9-16); Calcium 8.4 mg/dL (8.4-10.2); Carbon Dioxide 17 mmol/L (22-29); Chloride 109 mmol/L (96-108); Estimated Glomerular Filt Rate > 60; Glucose Random 100 mg/dL (60-115); Magnesium 2.1 mg/dL (1.6-2.6); Potassium 5.1 mmol/l (3.3-5.1); Sodium 137 mmol/L (135-145); Total Protein 7.5 g/dL (6.5-8.0)
[2020-09-12] MEDS: iohexoL 350 MG/ML 100 ML INFUS..BTL IV (15:35)
[2020-09-12 16:50] LABS: HCG Quantitative < 2 mIU/mL
[2020-09-12 17:26] LABS: Adenovirus PCR Not Detected (Not Detect.); Bordetella parapertussis PCR Not Detected (Not Detect.); Bordetella pertussis PCR Not Detected (Not Detect.); Chlamydia pneumoniae PCR Not Detected (Not Detect.); Coronavirus 229E PCR Not Detected (Not Detect.); Coronavirus HKU1 PCR Not Detected (Not Detect.); Coronavirus NL63 PCR Not Detected (Not Detect.); Coronavirus OC43 PCR Not Detected (Not Detect.); Human metapneumovirus PCR Not Detected (Not Detect.); Influenza A PCR Not Detected (Not Detect.); Influenza B PCR Not Detected (Not Detect.); Mycoplasma pneumoniae PCR Not Detected (Not Detect.); Parainfluenza 1 PCR Not Detected (Not Detect.); Parainfluenza 2 PCR Not Detected (Not Detect.); Parainfluenza 3 PCR Not Detected (Not Detect.); Parainfluenza 4 PCR Not Detected (Not Detect.); RSV PCR Not Detected (Not Detect.); Rhino/Enterovirus PCR Not Detected (Not Detect.); SARS-CoV-2 PCR Not Detected (Not Detect.)
== END 2020-09-12 18:02 | disposition home or self-care (01) ==
PROVIDERS: Physician Assistant Medical; Emergency Provider Emergency Medicine; PCP Internal Medicine
DX: U07.1 COVID-19 (principal); R42 Dizziness and giddiness; R06.00 Dyspnea, unspecified; Z86.19 Personal history of other infectious and parasitic diseases; Z79.899 Other long term (current) drug therapy
CPT/HCPCS: 36415; 70450; 71045; 71275; 80048; 80076; 83735; 84484; 84702; 85025; 85379; 85610; 87633; 93005; 96360; 96361; 99284; 99291; Q9967

== ENCOUNTER 2020-09-21 18:03 | Outpatient (REF) | payer OTHER, SELFPAY ==
--- NOTE | 2020-09-21 | US_ITS ---
EXAMINATION: US VENOUS ULTRASOUND WITH DOPPLER LOWER EXTREMITY, RIGHT CLINICAL INFORMATION: Right leg pain COMPARISON: None TECHNIQUE: Ultrasound of the deep veins is performed from the hip to the calf with compression sonography and color and pulse Doppler assessment. Spectral analysis with color-flow imaging is performed. FINDINGS: There is normal venous compression and respiratory variation and augmented flow. The visualized common femoral vein, superficial femoral vein, profunda femoral vein, popliteal vein, and the trifurcation region/visualized tibial segments shows no evidence of deep venous thrombosis. There is no significant popliteal fossa cyst. If the patient's symptoms persist, followup ultrasound in 5 days 7 days might be of value to exclude proximal propagation from a non-visualized calf vein. US/US venous duplex LE RT IMPRESSION: No DVT demonstrated in the right lower extremity.
== END 2020-09-21 18:04 | disposition home or self-care (01) ==
LOC: HO.US 18:03
PROVIDERS: PCP Internal Medicine; Visit Provider Nurse Practitioner Family
DX: M79.606 Pain in leg, unspecified (principal)
CPT/HCPCS: 93971

== ENCOUNTER 2020-09-28 17:21 | Outpatient (REF) | payer OTHER, SELFPAY ==
[2020-09-30 09:34] LABS: BV Int Neg Control Negative (Negative); BV Int Pos Control Positive (Positive)
[2020-10-04 18:11] LABS: CT PCR NOT DETECTED (Not Detect.); NG PCR NOT DETECTED (Not Detect.)
== END 2020-09-28 17:22 | disposition home or self-care (01) ==
LOC: HO.LAB 17:21
PROVIDERS: Visit Provider Nurse Practitioner Family
DX: N89.8 Other specified noninflammatory disorders of vagina (principal); R30.0 Dysuria
CPT/HCPCS: 87255; 87480; 87491; 87510; 87591; 87660

== ENCOUNTER 2020-10-31 21:17 | Emergency (ER) | payer OTHER, SELFPAY ==
[2020-10-31 21:33] VITALS: BP 127/86; PULSE 106; RESP 15; TEMP 37; O2SAT 98; BMI 34.7
--- NOTE | 2020-10-31 21:53 | XR_ITS ---
EXAMINATION: XR CHEST CLINICAL INFORMATION: Chest pain. COMPARISON: None TECHNIQUE: 2 views of the chest were obtained. FINDINGS: The lungs are clear. The cardiomediastinal silhouette is normal in size. There is no pleural effusion or pneumothorax. Small sclerotic focus within the inferior aspect of the left scapula, unchanged when compared to prior examinations. XR/XR chest 2V IMPRESSION: No acute cardiopulmonary findings.
--- NOTE | 2020-10-31 21:55 | ECG_ITS ---
Test Reason : cp Blood Pressure : / mmHG Vent. Rate : 098 BPM Atrial Rate : 098 BPM P-R Int : 150 ms QRS Dur : 058 ms QT Int : 324 ms P-R-T Axes : 055 032 103 degrees QTc Int : 413 ms Normal sinus rhythm Possible Anterior infarct , age undetermined Abnormal ECG When compared with ECG of 12-SEP-2020 12:47, Vent. rate has increased BY 41 BPM Nonspecific T wave abnormality now evident in Lateral leads Referred By: Elsie Sherman Electronically Signed By:Kevin Hernandez
== END 2020-10-31 22:40 | disposition left against medical advice (07) ==
PROVIDERS: Emergency Provider Internal Medicine; PCP Internal Medicine
DX: R03.0 Elevated blood-pressure reading, without diagnosis of hypertension (principal); R07.89 Other chest pain
CPT/HCPCS: 71046; 93005; 99283

== ENCOUNTER 2020-11-24 11:00 | Outpatient (REF) | payer OTHER, SELFPAY ==
[2020-11-24 15:01] LABS: Alanine Aminotransferase 18 U/L (0-31); Albumin Level 4.3 g/dL (3.5-5.0); Alkaline Phosphatase 108 U/L (39-117); Anion Gap 16 (12-20); Aspartate Amino Transferase 16 U/L (5-31); Bilirubin Total 0.5 mg/dL (0.0-1.0); Blood Urea Nitrogen 11 mg/dL (9-16); Calcium 9.1 mg/dL (8.4-10.2); Carbon Dioxide 25 mmol/L (22-29); Chloride 103 mmol/L (96-108); Cholesterol 207 mg/dL; Estimated Glomerular Filt Rate > 60; Glucose Fasting 112 mg/dL (60-99); HDL Cholesterol 39 mg/dL; LDL Cholesterol Calculated 142 mg/dl; Potassium 4.1 mmol/l (3.3-5.1); Sodium 140 mmol/L (135-145); Total Protein 7.6 g/dL (6.5-8.0); Triglycerides 130 mg/dL
== END 2020-11-24 11:01 | disposition home or self-care (01) ==
LOC: HO.HMGCLDS 11:00
PROVIDERS: PCP Internal Medicine; Visit Provider Internal Medicine
DX: Z00.00 Encounter for general adult medical examination without abnormal findings (principal); R91.1 Solitary pulmonary nodule
CPT/HCPCS: 36415; 80053; 80061; 84443

== ENCOUNTER → 2020-12-02 14:19 | Outpatient (BNVA) | payer OTHER, SELFPAY | PROVIDERS: PCP Internal Medicine; Visit Provider Internal Medicine Cardiovascular Disease | DX: R94.31 Abnormal electrocardiogram [ECG] [EKG] (principal); I10 Essential (primary) hypertension; Z86.16 Personal history of COVID-19 | CPT/HCPCS: 99202 ==

== ENCOUNTER 2020-12-08 12:43 | Outpatient (REF) | payer OTHER, SELFPAY ==
--- NOTE | ~2020-12-08 | CT_ITS ---
EXAMINATION: CT CHEST WITHOUT CONTRAST CLINICAL INFORMATION: Follow-up pulmonary nodules COMPARISON: Previous chest CTA August 2020 and chest x-ray 10/31/2020 TECHNIQUE: Multidetector volumetric CT imaging of the chest was done. Axial MIP volume rendering provided. Sagittal and coronal reformatted images were obtained. This CT examination was performed using dose optimization techniques as appropriate, variously including the following: *Automated exposure control *Adjustment of mA and/or kV according to patient size (this includes techniques or standardized protocols for targeted exams where dose is matched to indication/reason for exam; i.e. extremities or head) *Use of iterative reconstruction technique DLP: 196 mGy-cm FINDINGS: LUNGS: The lung volumes are low. There are heterogeneous areas of increased attenuation seen in the lungs probably representing hypoventilatory changes or areas of air-trapping. The lungs are otherwise clear. Previously identified small peripheral right lower lobe nodules on August 2020 and CTA of the chest are no longer seen. No endobronchial or endotracheal lesion is seen. MEDIASTINUM: The mediastinum is normal. PLEURA: There is no pleural effusion. No pleural mass or thickening. AXILLA: No lymphadenopathy. UPPER ABDOMEN: Unremarkable. OSSEOUS STRUCTURES: Unremarkable. CT/CT chest wo con IMPRESSION: Resolved right lower lobe nodules from August 2020. Low lung volumes and hypoventilatory changes.
== END 2020-12-08 12:44 | disposition home or self-care (01) ==
LOC: HO.CT 12:43
PROVIDERS: Visit Provider Internal Medicine
DX: R91.1 Solitary pulmonary nodule (principal)
CPT/HCPCS: 71250

== ENCOUNTER → 2021-01-05 09:33 | Outpatient (REF) | payer OTHER, SELFPAY ==
--- NOTE | 2021-01-05 09:37 | CA_ITS ---
Transthoracic Echocardiogram Amended Patient (Last, First, Middle): Staci Denton, Gender: Female Date of : 1980 Age: 40 Procedure Date: 01/05/2021 Procedure Type: Transthoracic Echocardiogram Location: OP Height: 160.02 cm Weight: 84.37 kg BSA: 1.88 m2 Heart Rate: bpm BP: 130 / 80 mmHg Banana Expert: LUIS Ricketts MD: Kevin Hernandez MD Survey Data Technician: Malcolm Escalante MD Symptoms: R94.31 - Abnormal electrocardiogram [ECG] [EKG] Study Quality: Technically Difficult ECG Rhythm: Sinus Conclusions: - 1. Normal LV systolic and diastolic function 2. Normal cardiac valvular Doppler 3. No gross pericardial effusion Findings Left Ventricle Normal left ventricular size, thickness, and systolic function. The visually estimated ejection fraction is between 65-70%. Regional wall motion abnormalities can not be excluded due to suboptimal endocardial definition. Diastolic function is normal for age. Right Ventricle The right ventricle was not well visualized. Atria The left atrium is normal in size. Interatrial shunt cannot be excluded. The right atrium was not well visualized. Aortic Valve The aortic valve structure and function is likely normal. There is no aortic valve stenosis. There is no aortic valve regurgitation. Mitral Valve Likely normal mitral valve structure and function. There is no mitral valve regurgitation. There is no mitral valve stenosis. Pulmonic Valve The pulmonic valve was not well visualized. Tricuspid Valve Likely normal tricuspid valve structure and function. Tricuspid regurgitation envelope is inadequate for calculation of right ventricular systolic pressure. Great Vessels All visible segments of the aorta are normal in size. The pulmonary artery was not well visualized. Venous The inferior vena cava was not well visualized. Pericardium/Pleural There is no evidence of pericardial effusion. Prior Study Comparison No prior study available for comparison. Measurements 2D Linear Measurements IVSd: 0.96 0.6-0.9/0.6-1.0 cm LVIDd: 3.90 3.9-5.3/4.2-5.9 cm LVIDd Index: 2.07 2.4-3.2/2.2-3.1 cm/m2 LVIDs: 2.30 2.0-3.6 cm LVPWd: 1.00 0.7-1.1 cm Ao Root: 3.00 2.1-3.5 cm LA Diam: 3.50 2.7-3.8/3.0-4.0 cm LAIDs Index: 1.86 1.5-2.3 cm/m2 LV Mass: 148.02 67-162/88-224 g LV Mass Index: 78.73 43-95/49-115 g/m2 LVOT Diam: 2.00 3.0+(-)1.3 cm 2D Volumes LA Vol: 22.80 Mitral Valve MV Pk E: 0.84 MV PK A: 0.83 MV Decel Time: 275.00 E/A: 1.00 E'Lateral: 10.10 E'Medial: 11.20 E/E' Med: 7.50 E/E' Lat: 8.40 PHT: 81.00 MVA PHT: 2.72 Decel Otoe: 3.14 Aortic Valve AoV Pk Taco: 1.36 AoV Mn Taco: 0.97 AoV VTI: 0.31 AoV Pk Grad: 7.00 Aov Mn Grad: 4.00 LUCA Cont.VTI: 2.36 LVOT LVOT Pk Taco: 1.01 LVOT Mn Taco: 0.66 LVOT VTI: 0.23 LVOT Pk Grad: 4.00 LVOT Mn Grad: 2.00 LVOT Diam: 2.00 LVOT Area: 3.14 Diastolic Function MV Pk E: 0.84 MV Pk A: 0.83 E/A: 1.00 E'Medial: 11.20 E/E' Med: 7.50 E' Laterial: 10.10 E/E' Lat: 8.40 Great Vessels Aorta Ao Root-2D: 3.00 2.0-3.7 cm Ao Asc: 2.60 2.1-3.4 cm Ao Arch: 2.50 Updated in Other Vendor System with Status of Final Malcolm Escalante MD electronically signed on 01/05/2021 4:24:05 PM with status of Final
== END ==
LOC: HO.CARD 09:33
PROVIDERS: Visit Provider Internal Medicine Cardiovascular Disease
DX: R94.31 Abnormal electrocardiogram [ECG] [EKG] (principal)
CPT/HCPCS: 93306

== ENCOUNTER → 2021-01-07 13:10 | Outpatient (BNVA) | payer OTHER, SELFPAY | PROVIDERS: Visit Provider Obstetrics & Gynecology | DX: N92.6 Irregular menstruation, unspecified (principal) | CPT/HCPCS: 99212 ==

== ENCOUNTER 2021-09-05 20:03 | Emergency (ER) | payer OTHER, SELFPAY ==
--- NOTE | 2021-09-05 20:31 | ECG_ITS ---
Test Reason : CHECK CARDIAC STATUS Blood Pressure : / mmHG Vent. Rate : 092 BPM Atrial Rate : 092 BPM P-R Int : 156 ms QRS Dur : 072 ms QT Int : 360 ms P-R-T Axes : 039 027 073 degrees QTc Int : 445 ms Normal sinus rhythm with sinus arrhythmia Nonspecific T wave abnormality Abnormal ECG When compared with ECG of 31-OCT-2020 21:35, No significant changes seen Referred By: Generic ED Physician Electronically Signed By:LUIS NJ MD
[2021-09-05 20:39] VITALS: BP 179/100; PULSE 90; RESP 18; TEMP 36.9; O2SAT 98; BMI 34.2
[2021-09-05] MEDS: LORazepam 2 MG/ML VIAL IM (21:45)
[2021-09-05] MEDS: diphenhydrAMINE HCL 50 MG/ML VIAL IM (21:45)
[2021-09-05] MEDS: Haloperidol Lactate 5 MG/ML VIAL IM (21:45)
--- NOTE | 2021-09-05 22:40 | ED.ANXIETY ---
HPI - Anxiety General Chief Complaint: Anxiety Stated Complaint: SI Time Seen by Provider: 09/05/21 21:52 Source: patient and family Mode of arrival: ambulatory Limitations: no limitations History of Present Illness HPI narrative: 40-year-old female with history of depression presents to the ED for depression. Patient not forthcoming in front daughter presence. patient informed she had argument with her that was very volatile. Patient states since arguments she has a feeling of wanting to kill her and kill herself. Daughter states mother has history of depression has been admitted once at the psych inpatient for depression. Unsure if patient is taking any depressive medication Related Data Home Medications Medication Instructions Recorded Confirmed No Known Home Meds 03/02/21 03/02/21 Allergies Allergy/AdvReac Type Severity Reaction Status Date / Time No Known Allergies Allergy Mild NOT Verified 03/02/21 11:39 [No Known Allergies*] APPLICABLE Review of Systems Review of Systems: Yes all other systems are reviewed and are negative Constitutional: Constitutional: Reports as per HPI and Reports no additional constitutional complaints Eyes: Eyes: Reports as per HPI and Reports no additional eye complaints ENT: Reports system reviewed and no additional complaints, except as documented and Reports as per HPI Cardiovascular: Cardiovascular: Reports as per HPI and Reports no additional cardiovascular complaints Respiratory: Respiratory: Reports as per HPI and Reports no additional respiratory complaints Gastrointestinal: Gastrointestinal: Reports as per HPI and Reports no additional gastrointestinal complaints Genitourinary: Genitourinary: Reports no additional female genitourinary complaints and Reports as per HPI Musculoskeletal: Musculoskeletal: Reports no additional musculoskeletal complaints and Reports as per HPI Integumentary/Breasts: Skin/Breast: Reports system reviewed and no additional complaints, except as docu Neurologic: Reports system reviewed and no additional complaints, except as documented and Reports as per HPI Psychiatric: Psychiatric: Reports no additional psychiatric complaints and Reports as per HPI Comments: Depression Endocrine: Endocrine: Reports no additional endocrine complaints and Reports as per HPI PMF Past Medical History Medical History (Updated 09/06/21 @ 00:49 by NOHELIA Marquez) Annual physical exam Anxiety Lung nodule seen on imaging study Sciatica Surgical History History of appendectomy Family History Family History Father HTN (hypertension) Mother HTN (hypertension) Brother No problems noted. Brother No problems noted. Son No problems noted. Son No problems noted. Daughter No problems noted. Social History Social History (Updated 01/07/21 @ 13:16 by FRANCES Harris) Alcohol intake: never Advance Directives: No Patient : No Gender identity: Female Physical Exam Vital Signs: Vital Signs: Last Vital Signs Temp 98.4 F 09/05/21 20:39 Pulse 90 09/05/21 20:39 Resp 18 09/05/21 20:39 BP 179/100 H 09/05/21 20:39 Pulse Ox 98 09/05/21 20:39 Body Mass Index 34.2 Const: Other: Patient is tearful General: cooperative, healthy appearing, comfortable, no acute distress, well developed, alert, awake and Physically active Orientation/consciousness: patient oriented x3 HENMT: Head: Yes normal to inspection, Yes No palpable skull fracture present, Yes normocephalic and Yes atraumatic Eyes: General: appearance normal, both eyes and all related structures Neck: Neck: Yes normal visual inspection, Yes full ROM, Yes no lymphadenopathy, Yes no meningeal signs, Yes trachea midline, Yes supple and No tender Chest: Chest palpation & inspection: normal inspection of the chest and normal palpation of entire chest wall Resp: Effort & Inspection: normal respiratory effort and able to speak in complete sentences Auscultation: clear to auscultation bilaterally Cardio: Jugular venous distension: no JVD Heart sounds: S1 normal heart sound present and S2 normal heart sound present GI: Inspection: Yes normal to inspection and No abdominal wall ecchymosis Palpation (GI): Soft to palpation, not firm, nontender, no guarding and not rigid : General: No CVA tenderness and Yes no CVA tenderness Back/Spine/Pelvis: Back: no CVA tenderness, No CVA tenderness and No back tenderness Skin: General skin exam: no rashes or lesions noted and elasticity normal Neuro: General: patient oriented x3, gait normal, no meningeal signs and CN's II-XI intact bilaterally Cranial nerves: Yes CN's II-XII intact bilaterally Extrem: General: Yes normal to inspection and Yes full ROM Psych: Other: Depressed. Crying hysterically Appearance: grossly normal, well kempt and not disheveled Course Course Course Narrative: Patient tried to leave from the ER and got aggressive with the staff. Due for patient's safety patient was sedated with Benadryl, Haldol, Ativan. Reevaluation(s) Reevaluation #1: Patient waiting crisis evaluation Time: 00:40 MDM - Anxiety MDM Narrative Medical decision making narrative: Depression Lab Data Result diagrams: 09/05/21 22:25 09/05/21 22:25 Labs: Lab Results 09/05/21 09/05/21 09/05/21 Range/Units 22:25 22:25 22:25 WBC 9.9 (4.8-10.8) X10*3/uL RBC 5.03 (4.20-5.50) X10*6/uL Hgb 10.8 L (12.0-16.0) g/dl Hct 35.6 L (37.0-47.0) % MCV 70.8 L (80.0-98.0) fL MCH 21.5 L (27.0-33.0) pg MCHC 30.3 L (31.0-35.0) g/dl RDW 16.9 H (11.0-16.0) % Plt Count 407 H (160-400) X10*3/uL MPV 10.4 (9.4-12.3) fL Immature Gran % (Auto) 0.4 (0.0-0.4) % Neut % (Auto) 71.1 (45-73) % Lymph % (Auto) 22.0 (20-40) % [place] % (Auto) 5.7 (2-11) % Eos % (Auto) 0.2 (0-4) % Baso % (Auto) 0.6 (0-2) % Lymph # (Auto) 2.2 (1.2-4.9) X10*3/uL [place] # (Auto) 0.6 (0.1-1.2) X10*3/uL Eos # (Auto) 0.0 (0.0-0.4) X10*3/uL Baso # (Auto) 0.1 (0.0-0.2) X10*3/uL Abs Immat Gran (auto) 0.04 H (0.00-0.03) X10*3/uL Absolute Neuts (auto) 7.1 (2.0-8.3) x10*3/uL Absolute Nucleated RBC 0.000 (0.0-0.012) X10*3/uL Nucleated RBC % (auto) 0.0 (0.0-0.2) /100WBC Sodium 138 (135-145) mmol/L Potassium 3.6 (3.3-5.1) mmol/L Chloride 105 (96-108) mmol/L Carbon Dioxide 23 (22-29) mmol/L Anion Gap 14 (12-20) BUN 9 (9-16) mg/dL Creatinine 0.75 (0.5-1.4) mg/dL Estim Creat Clear Calc 92.0 Estimated GFR > 60 Random Glucose 117 H (60-115) mg/dL Calcium 8.8 (8.4-10.2) mg/dL Total Bilirubin 0.2 (0.0-1.0) mg/dL Direct Bilirubin < 0.2 (0.0-0.5) mg/dL AST 22 (5-31) U/L ALT 20 (0-31) U/L Alkaline Phosphatase 89 (39-117) U/L Total Protein 7.1 (6.5-8.0) g/dL Albumin 4.1 (3.5-5.0) g/dL Beta HCG, Quant < 2 mIU/mL Ethyl Alcohol < 10 mg/dL COVID-19 ([facility]LAN) (Negative) COVID-19 Clin Com 09/06/21 Range/Units 00:04 WBC (4.8-10.8) X10*3/uL RBC (4.20-5.50) X10*6/uL Hgb (12.0-16.0) g/dl Hct (37.0-47.0) % MCV (80.0-98.0) fL MCH (27.0-33.0) pg MCHC (31.0-35.0) g/dl RDW (11.0-16.0) % Plt Count (160-400) X10*3/uL MPV (9.4-12.3) fL Immature Gran % (Auto) (0.0-0.4) % Neut % (Auto) (45-73) % Lymph % (Auto) (20-40) % [place] % (Auto) (2-11) % Eos % (Auto) (0-4) % Baso % (Auto) (0-2) % Lymph # (Auto) (1.2-4.9) X10*3/uL [place] # (Auto) (0.1-1.2) X10*3/uL Eos # (Auto) (0.0-0.4) X10*3/uL Baso # (Auto) (0.0-0.2) X10*3/uL Abs Immat Gran (auto) (0.00-0.03) X10*3/uL Absolute Neuts (auto) (2.0-8.3) x10*3/uL Absolute Nucleated RBC (0.0-0.012) X10*3/uL Nucleated RBC % (auto) (0.0-0.2) /100WBC Sodium (135-145) mmol/L Potassium (3.3-5.1) mmol/L Chloride (96-108) mmol/L Carbon Dioxide (22-29) mmol/L Anion Gap (12-20) BUN (9-16) mg/dL Creatinine (0.5-1.4) mg/dL Estim Creat Clear Calc Estimated GFR Random Glucose (60-115) mg/dL Calcium (8.4-10.2) mg/dL Total Bilirubin (0.0-1.0) mg/dL Direct Bilirubin (0.0-0.5) mg/dL AST (5-31) U/L ALT (0-31) U/L Alkaline Phosphatase (39-117) U/L Total Protein (6.5-8.0) g/dL Albumin (3.5-5.0) g/dL Beta HCG, Quant mIU/mL Ethyl Alcohol mg/dL COVID-19 (DYLAN) Negative (Negative) COVID-19 Clin Com See Note Discharge Plan Discharge Clinical Impression: Depression Prescriptions: No Action No Known Home Meds RF: 0
[2021-09-05 22:41] LABS: MANUAL DIFF FLAG NO
[2021-09-05 22:44] LABS: Basophils Absolute Auto 0.1 X10*3/uL (0.0-0.2); Basophils Percent Auto 0.6 % (0-2); Eosinophils Percent Auto 0.2 % (0-4); Hematocrit 35.6 % (37.0-47.0); Hemoglobin 10.8 g/dl (12.0-16.0); Imm Gran Abs Auto 0.04 X10*3/uL (0.00-0.03); Imm Gran Pct Auto 0.4 % (0.0-0.4); Lymphocytes Absolute Auto 2.2 X10*3/uL (1.2-4.9); Mean Corpuscular HGB Conc 30.3 g/dl (31.0-35.0); Mean Corpuscular Hemoglobin 21.5 pg (27.0-33.0); Mean Corpuscular Volume 70.8 fL (80.0-98.0); Mean Platelet Volume 10.4 fL (9.4-12.3); Monocytes Absolute Auto 0.6 X10*3/uL (0.1-1.2); Monocytes Percent Auto 5.7 % (2-11); Neutrophils Absolute Auto 7.1 x10*3/uL (2.0-8.3); Neutrophils Percent Auto 71.1 % (45-73); Platelet Count 407 X10*3/uL (160-400); Red Blood Count 5.03 X10*6/uL (4.20-5.50); Red Cell Distribution Width 16.9 % (11.0-16.0); White Blood Count 9.9 X10*3/uL (4.8-10.8)
[2021-09-05 22:55] LABS: Ethanol < 10 mg/dL
--- NOTE | 2021-09-05 22:57 | PC.NURSE ---
pt asleep but easily arousable, resps nonlabored. pt answeres questions yes or no only but is calm and cooperative when arioused. plan is to move pt to pod when appropriate to await bhn eval.
[2021-09-05 22:59] LABS: Alanine Aminotransferase 20 U/L (0-31); Albumin Level 4.1 g/dL (3.5-5.0); Alkaline Phosphatase 89 U/L (39-117); Anion Gap 14 (12-20); Aspartate Amino Transferase 22 U/L (5-31); Bilirubin Direct < 0.2 mg/dL (0.0-0.5); Bilirubin Total 0.2 mg/dL (0.0-1.0); Blood Urea Nitrogen 9 mg/dL (9-16); Calcium 8.8 mg/dL (8.4-10.2); Carbon Dioxide 23 mmol/L (22-29); Chloride 105 mmol/L (96-108); Estimated Glomerular Filt Rate > 60; Glucose Random 117 mg/dL (60-115); Potassium 3.6 mmol/L (3.3-5.1); Sodium 138 mmol/L (135-145); Total Protein 7.1 g/dL (6.5-8.0)
[2021-09-05 23:07] LABS: HCG Quantitative < 2 mIU/mL
[2021-09-06 00:32] LABS: COVID-19 Test Negative (Negative); IDNOW Serial# 9DD0AD1C
--- NOTE | 2021-09-06 05:33 | PC.NURSE ---
Patient slept through the night, no distress observed/reported, patient was medically restrained at 2145 with Haldol 5 mg IM, Ativan 2 mg IM, and Benadryl 50 mg IM, urine pending, exchange clerk partially completed, [facility] referral completed/confirmed by N, patient will be evaluated in the morning, VSS, will continue to monitor.
[2021-09-06 05:43] VITALS: BP 129/78; PULSE 76; RESP 16; TEMP 36.9; O2SAT 99
--- NOTE | 2021-09-06 10:49 | PC.NURSE ---
[facility] with patient
--- NOTE | 2021-09-06 11:45 | PC.NURSE ---
Pt has been sleeping soundly through most of the morning since this RN arrived at 7am. Pt woke for convesation with [facility]. Now states to this RN that she denies SI and HI. Is slightly unsteady on her feet but improving. Taking PO fluids. Daughter has called mult times for updates and patient aware to call her back.
--- NOTE | 2021-09-06 14:03 | PC.NURSE ---
[id number] pt dressing independently. daughter present for transportation to respite facility. no distress at d/c
== END 2021-09-06 14:05 ==
PROVIDERS: Physician Assistant; Emergency Provider Emergency Medicine
DX: F33.1 Major depressive disorder, recurrent, moderate (principal); R45.851 Suicidal ideations; F41.1 Generalized anxiety disorder; F43.0 Acute stress reaction; Z20.822 Contact with and (suspected) exposure to COVID-19; Z79.899 Other long term (current) drug therapy
CPT/HCPCS: 36415; 80053; 82077; 82248; 84702; 85025; 87635; 93005; 96372; 99284; 99285; J1200; J2060

== ENCOUNTER 2021-09-07 09:52 | Emergency (ER) | payer OTHER, SELFPAY ==
--- NOTE | ~2021-09-07 | CT_ITS ---
EXAMINATION: CT ABDOMEN AND PELVIS WITHOUT CONTRAST CLINICAL INFORMATION: Left flank pain. Urinary pressure and frequency. COMPARISON: Previous CT of the abdomen and pelvis most recent May 2020 TECHNIQUE: Multidetector volumetric imaging was performed from the superior aspect of the liver through the pubic symphysis. Sagittal and coronal reformatted images were obtained on the technologist's workstation. This CT examination was performed using dose optimization techniques as appropriate, variously including the following: *Automated exposure control *Adjustment of mA and/or kV according to patient size (this includes techniques or standardized protocols for targeted exams where dose is matched to indication/reason for exam; i.e. extremities or head) *Use of iterative reconstruction technique DLP: 752 mGy-cm FINDINGS: LUNG BASES: The visualized lung bases are unremarkable. LIVER, GALLBLADDER, AND BILIARY TREE: The liver is low in attenuation suggestive of fatty infiltration. The gallbladder is normal. No focal liver lesion or biliary duct dilatation. PANCREAS: Unremarkable. SPLEEN: Unremarkable. ADRENAL GLANDS: Unremarkable. KIDNEYS AND URETERS: The kidneys are normal in size, shape, and attenuation. No hydronephrosis, hydroureter, or calculi seen. No perinephric stranding. BLADDER: Not optimally distended. GASTROINTESTINAL TRACT: There is stool throughout the colon suggestive of constipation. There is mild diverticulosis of the colon. No evidence of diverticulitis is seen. There is a 5 mm radiopaque density seen in the lumen of the distal sigmoid colon or upper rectum surrounded by stool. Presumably this represents something the patient has ingested. There is no evidence of obstruction. The appendix is not seen and appears to have been removed. ABDOMINAL WALL: There is a small umbilical hernia containing fat. Diastasis of the rectus muscles. LYMPH NODES: Normal. VASCULAR: Unremarkable. PELVIC VISCERA: Unremarkable. OSSEOUS STRUCTURES: Unremarkable. CT/CT abdomen pelvis wo con IMPRESSION: Normal-appearing kidneys. Fatty liver. Diverticulosis of the colon. Stool throughout the colon suggestive of constipation.
[2021-09-07 09:56] VITALS: BP 149/68; PULSE 82; RESP 20; TEMP 36.7; O2SAT 99; BMI 33.6
[2021-09-07 10:40] LABS: MANUAL DIFF FLAG NO
[2021-09-07 10:41] VITALS: BP 146/92; PULSE 74; RESP 18; TEMP 36.7; O2SAT 99
--- NOTE | 2021-09-07 10:50 | ED.ABDPAIN ---
HPI - Abdominal Pain General Chief Complaint: Abdominal Pain Stated Complaint: lt side abd pain Time Seen by Provider: 09/07/21 10:50 Source: patient Mode of arrival: ambulatory Limitations: no limitations History of Present Illness HPI narrative: patient with left lower abdominal pain with left flank pain. Patient had kidney stones 12 years ago, Pressure with urination, frequency, currently on her period. Patient with nausea, no vomiting. MD elicited complaint: abdominal pain and flank pain Onset (ago): day(s) Pain Consistency: intermittent Location: LLQ and L flank Severity: moderate Quality: stabbing Radiation: L flank Exacerbating factors: movement Relieving factors: nothing Associated symptoms: nausea and dysuria Related Data Previous Rx's Medication Instructions Recorded lactulose 10 gram/15 mL (15 mL) 20 g (30 mL) PO TID #750 ml 09/07/21 oral solution psyllium husk 0.4 gram capsule 0.4 g PO DAILY #60 cap 09/07/21 (Metamucil) Allergies Allergy/AdvReac Type Severity Reaction Status Date / Time No Known Allergies Allergy Mild NOT Verified 09/07/21 09:06 [No Known Allergies*] APPLICABLE Review of Systems Denies Sensory deficit (Neuro) Physical Exam Vital Signs: Vital Signs: Last Vital Signs Temp 98.0 F 09/07/21 10:41 Pulse 74 09/07/21 10:41 Resp 18 09/07/21 10:41 BP 146/92 H 09/07/21 10:41 Pulse Ox 99 09/07/21 10:41 Body Mass Index 33.6 Const: Other: female appearing in discomfort Nutritional Appearance: obese Orientation/consciousness: oriented to person and patient oriented x3 Limitations: no limitations HENMT: Head: Yes normal to inspection Ears: external ears normal General nose exam: Normal external nose present Mouth: Normal oral and palatal mucosa present and oropharynx normal Throat: Yes posterior oropharynx normal Eyes: General: appearance normal, both eyes and all related structures Neck: Other: supple Neck: Yes normal visual inspection Chest: Chest palpation & inspection: normal inspection of the chest Resp: Auscultation: clear to auscultation bilaterally Cardio: Jugular venous distension: no JVD Rate: regular rate Rhythm: regular rhythm Heart sounds: S1 normal heart sound present and S2 normal heart sound present GI: Other: diffusely tender mostly in the suprapubic area Inspection: Yes normal to inspection Palpation (GI): Soft to palpation and No hepatosplenomegaly present Auscultation: normal bowel sounds Back/Spine/Pelvis: Other: Left CVAT Skin: General skin exam: no rashes or lesions noted Neuro: General: oriented to person and patient oriented x3 Cranial nerves: Yes CN's II-XII intact bilaterally Motor exam (neuro): 5/5 motor strength present throughout Sensory Exam: No Sensory deficit (Neuro) Extrem: General: Yes normal to inspection Psych: Appearance: grossly normal Course Reevaluation(s) Reevaluation #1: Labs and urine normal, CT consistent only with constipation will dc home Time: 13:00 MDM - Abdominal Pain Lab Data Result diagrams: 09/07/21 10:33 09/07/21 10:33 Labs: Lab Results 09/07/21 09/07/21 09/07/21 Range/Units 10:33 10:33 11:10 WBC 5.9 (4.8-10.8) X10*3/uL RBC 4.55 (4.20-5.50) X10*6/uL Hgb 9.7 L (12.0-16.0) g/dl Hct 32.3 L (37.0-47.0) % MCV 71.0 L (80.0-98.0) fL MCH 21.3 L (27.0-33.0) pg MCHC 30.0 L (31.0-35.0) g/dl RDW 17.0 H (11.0-16.0) % Plt Count 375 (160-400) X10*3/uL MPV 10.2 (9.4-12.3) fL Immature Gran % (Auto) 0.3 (0.0-0.4) % Neut % (Auto) 69.2 (45-73) % Lymph % (Auto) 23.1 (20-40) % [place] % (Auto) 6.6 (2-11) % Eos % (Auto) 0.3 (0-4) % Baso % (Auto) 0.5 (0-2) % Lymph # (Auto) 1.4 (1.2-4.9) X10*3/uL [place] # (Auto) 0.4 (0.1-1.2) X10*3/uL Eos # (Auto) 0.0 (0.0-0.4) X10*3/uL Baso # (Auto) 0.0 (0.0-0.2) X10*3/uL Abs Immat Gran (auto) 0.02 (0.00-0.03) X10*3/uL Absolute Neuts (auto) 4.1 (2.0-8.3) x10*3/uL Absolute Nucleated RBC 0.000 (0.0-0.012) X10*3/uL Nucleated RBC % (auto) 0.0 (0.0-0.2) /100WBC Sodium 139 (135-145) mmol/L Potassium 3.7 (3.3-5.1) mmol/L Chloride 106 (96-108) mmol/L Carbon Dioxide 25 (22-29) mmol/L Anion Gap 12 (12-20) BUN 10 (9-16) mg/dL Creatinine 0.80 (0.5-1.4) mg/dL Estim Creat Clear Calc 96.2 Estimated GFR > 60 Random Glucose 119 H (60-115) mg/dL Calcium 8.8 (8.4-10.2) mg/dL Total Bilirubin 0.2 (0.0-1.0) mg/dL AST 22 (5-31) U/L ALT 20 (0-31) U/L Alkaline Phosphatase 88 (39-117) U/L Total Protein 7.2 (6.5-8.0) g/dL Albumin 4.1 (3.5-5.0) g/dL Urine Color YELLOW Urine Appearance CLEAR Urine pH 6.0 (5.0-8.0) Ur Specific [place] 1.020 (1.005-1.025) Urine Protein NEG (NEG-TRACE) MG/DL Urine Glucose (UA) NEG (NEG) MG/DL Urine Ketones NEG (NEG) MG/DL Urine Blood TRACE (NEG) Urine Nitrite NEG (NEG) Ur Leukocyte Esterase NEG (NEG) Urine RBC 0-2 (0) /HPF Urine WBC 0-2 (0-4) /HPF Ur Squamous Epith Cells 2+ /LPF Urine Bacteria TRACE /LPF Imaging Data CT scan - abdomen: Radiologist's impression: IMPRESSION: Normal-appearing kidneys. Fatty liver. Diverticulosis of the colon. Stool throughout the colon suggestive of constipation. Discharge Plan Discharge Clinical Impression: Constipation Patient Disposition: Home, Self-Care Instructions: Constipation (ED) Prescriptions: New lactulose 10 gram/15 mL (15 mL) solution 20 g PO TID Qty: 750 RF: 0 psyllium husk [Metamucil] 0.4 gram capsule 0.4 g PO DAILY Qty: 60 RF: 0 Referrals: Liza Mosquera MD [Primary Care Provider] - 1 week COUNTS INCLUDE 234 BEDS AT THE [facility] Past Medical History Medical History (Updated 09/07/21 @ 13:03 by Vinicio Solano MD) Annual physical exam Anxiety Lung nodule seen on imaging study Sciatica Surgical History History of appendectomy Family History Family History Father HTN (hypertension) Mother HTN (hypertension) Brother No problems noted. Brother No problems noted. Son No problems noted. Son No problems noted. Daughter No problems noted. Social History Social History (Updated 01/07/21 @ 13:16 by FRANCES Harris) Alcohol intake: never Patient Tobacco Use Status: Never used Tobacco Advance Directives: No Gender identity: Female
[2021-09-07 10:51] LABS: Basophils Percent Auto 0.5 % (0-2); Eosinophils Percent Auto 0.3 % (0-4); Hematocrit 32.3 % (37.0-47.0); Hemoglobin 9.7 g/dl (12.0-16.0); Imm Gran Abs Auto 0.02 X10*3/uL (0.00-0.03); Imm Gran Pct Auto 0.3 % (0.0-0.4); Lymphocytes Absolute Auto 1.4 X10*3/uL (1.2-4.9); Lymphocytes Percent Auto 23.1 % (20-40); Mean Corpuscular Hemoglobin 21.3 pg (27.0-33.0); Mean Platelet Volume 10.2 fL (9.4-12.3); Monocytes Absolute Auto 0.4 X10*3/uL (0.1-1.2); Monocytes Percent Auto 6.6 % (2-11); Neutrophils Absolute Auto 4.1 x10*3/uL (2.0-8.3); Neutrophils Percent Auto 69.2 % (45-73); Platelet Count 375 X10*3/uL (160-400); Red Blood Count 4.55 X10*6/uL (4.20-5.50); White Blood Count 5.9 X10*3/uL (4.8-10.8)
[2021-09-07 10:56] LABS: Alanine Aminotransferase 20 U/L (0-31); Albumin Level 4.1 g/dL (3.5-5.0); Alkaline Phosphatase 88 U/L (39-117); Anion Gap 12 (12-20); Aspartate Amino Transferase 22 U/L (5-31); Bilirubin Total 0.2 mg/dL (0.0-1.0); Blood Urea Nitrogen 10 mg/dL (9-16); Calcium 8.8 mg/dL (8.4-10.2); Carbon Dioxide 25 mmol/L (22-29); Chloride 106 mmol/L (96-108); Creatinine Clr Calc Pharmacy 96.2; Estimated Glomerular Filt Rate > 60; Glucose Random 119 mg/dL (60-115); Potassium 3.7 mmol/L (3.3-5.1); Sodium 139 mmol/L (135-145); Total Protein 7.2 g/dL (6.5-8.0)
[2021-09-07 11:15] LABS: Appearance Urine CLEAR; Color Urine YELLOW; Glucose Urine UA NEG (NEG); Leukocyte Esterase Urine NEG (NEG); Nitrite Urine NEG (NEG); UACC Culture Trigger NO; Urine Blood TRACE (NEG); Urine Ketones NEG (NEG); Urine Protein NEG (NEG-TRACE)
[2021-09-07 11:25] LABS: Bacteria Urine TRACE /LPF; RBC Urine 0-2 /HPF (0); Squamous Epithelial Cell Urine 2+ /LPF; WBC Urine 0-2 /HPF (0-4)
[2021-09-07] MEDS: 0.9 % Sodium Chloride 1,000 ML 125 ML IVCONT (11:37)
[2021-09-07] MEDS: Ketorolac Tromethamine 15 MG/ML VIAL 30 MG IVPUSH (11:37)
[2021-09-07] MEDS: Lactulose 20 GM/30 ML SOLUTION PO (13:08)
== END 2021-09-07 13:15 | disposition home or self-care (01) ==
PROVIDERS: Emergency Provider Emergency Medicine; PCP Internal Medicine
DX: K59.00 Constipation, unspecified (principal); Z87.442 Personal history of urinary calculi
CPT/HCPCS: 36415; 74176; 80053; 81001; 85025; 96361; 96374; 99284; J1885

== ENCOUNTER 2021-11-25 13:24 | Outpatient (REF) | payer OTHER, SELFPAY ==
[2021-11-30 20:37] LABS: HPV mRNA E6/E7 Not Detected (Not Detected)
== END 2021-11-25 13:25 | disposition home or self-care (01) ==
LOC: HO.LAB 13:24
PROVIDERS: Visit Provider Internal Medicine
DX: Z00.00 Encounter for general adult medical examination without abnormal findings (principal); E78.5 Hyperlipidemia, unspecified; R73.9 Hyperglycemia, unspecified; D64.9 Anemia, unspecified; K59.00 Constipation, unspecified; K63.9 Disease of intestine, unspecified; Z11.51 Encounter for screening for human papillomavirus (HPV)
CPT/HCPCS: 87624; 88142

== ENCOUNTER 2021-11-29 09:19 | Emergency (ER) | payer OTHER, SELFPAY ==
--- NOTE | ~2021-11-29 | XR_ITS ---
EXAMINATION: XR CHEST CLINICAL INFORMATION: Fever and cough. Covid at this time COMPARISON: None TECHNIQUE: 2 views of the chest were obtained. FINDINGS: No significant abnormality is noted involving the heart, lungs, mediastinum, bony thorax or soft tissues. XR/XR chest 2V IMPRESSION: Unremarkable chest examination.
[2021-11-29 09:57] VITALS: BP 179/90; PULSE 80; RESP 18; TEMP 36.8; O2SAT 100; BMI 34.5
--- NOTE | 2021-11-29 10:36 | ED_ITS ---
HPI - URI/Sore Throat General Chief Complaint: Upper Respiratory Symptoms Stated Complaint: FEVER RIB PAIN Time Seen by Provider: 11/29/21 10:28 Source: patient Mode of arrival: ambulatory Limitations: no limitations History of Present Illness HPI Narrative: 41-year-old female with a past medical history of anemia, hyperlipidemia, hypertension, lung nodule, kidney stones, ovarian cyst, anxiety, sciatica, sigmoid thickening who was vaccinated to COVID and had COVID in August 2020 presenting to the ED with complaints of fevers up to 102, chills, body aches, myalgias, fatigue, intermittent headaches, sore throat, dry cough with chest tightness for the past 2 days worse since last night with associated nausea and vomiting. Denies any dizziness, neck pain/stiffness, trouble swallowing or breathing, chest pain or shortness of breath, dyspnea on exertion, orthopnea, palpitations, black or bloody emesis, abdominal pain, back pain, dysuria, hematuria, diarrhea constipation, rashes, recent travel or sick contacts or any other symptoms complaints or concerns at this time. MD elicited complaint: fever, cough and sore throat Onset (ago): day(s) (2) Consistency: constant and progressively worsening Severity: mild Able to tolerate fluids by mouth: Yes Exacerbating factors: swallowing and deep breaths (And coughing) Relieving factors: nothing Associated symptoms: fever, chills, myalgias, headache, sore throat, cough, nausea and vomiting Treatments prior to arrival: none Related Data Previous Rx's Medication Instructions Recorded lactulose 10 gram/15 mL (15 mL) 20 g (30 mL) PO TID #750 ml 09/07/21 oral solution psyllium husk 0.4 gram capsule 0.4 g PO DAILY #60 cap 09/07/21 (Metamucil) acetaminophen 500 mg tablet 1,000 mg PO QID PRN #14 tab 11/29/21 (Tylenol Extra Strength) azithromycin 250 mg tablet See Rx Instructions .ROUTE 11/29/21 .COMPLEX #6 tab codeine 10 mg-guaifenesin 100 mg/5 5 ml PO Q6H PRN #120 ml 11/29/21 mL oral liquid (Guaifenesin AC) ibuprofen 800 mg tablet 800 mg PO Q8H PRN #14 tab 11/29/21 Allergies Allergy/AdvReac Type Severity Reaction Status Date / Time No Known Allergies Allergy Mild NOT Verified 11/29/21 09:56 [No Known Allergies*] APPLICABLE Review of Systems Verdana 4l Review of Systems: Verdana 4d Verdana 4d Constitutional : Positive fevers/chills/fatigue/malaise, No Weight loss, No Night Sweats ENT/Mouth : Part a sore throat and bilateral ear pain, No Hearing loss, No Nasal Congestion, No Sinus Pain, No Hoarseness, No Rhinorrhea, No SwallowingSwallowing Difficulty Eyes: No Eye Pain, No Swelling, No Redness, No Foreign Body, No Discharge, No Vision Changes Cardiovascular : No Chest Pain, No SOB, No Dyspnea on Exertion, No Orthopnea, No Edema, No Palpitations Respiratory : Positive cough with chest tightness, No Sputum, No Wheezing, No Smoke Exposure, No Dyspnea Gastrointestinal : Positive Nausea, positive Vomiting, No Diarrhea, No Constipation, No abdominal Pain, No Hematochezia, No Melena Genitourinary : no irregular bleeding, No Dysuria, No Urinary Frequency, No Hematuria, No Urinary Incontinence, No Urgency, No Flank Pain, No Urinary Flow Changes, No Hesitancy Musculoskeletal : No joint pain, positive Myalgias, No Joint Swelling Skin : No Skin Lesions, No rash Neuro : No Weakness, No Numbness, No Paresthesias, No Loss of Consciousness, No Dizziness, No Headache Psych : No Anxiety/Panic, No Depression, No SI/HI/AH/VH, No Social Issues, Heme/Lymph: No Bruising, No Bleeding,No Lymphadenopathy Endocrine : No Polyuria, No Polydipsia, No Temperature Intolerance Yes all other systems are reviewed and are negative [facility] Past Medical History Attestation statement: The following information was validated with the patient. Medical History Anemia Annual physical exam Anxiety Constipation Hyperglycemia Hyperlipidemia Lung nodule seen on imaging study Sciatica Sigmoid thickening Surgical History History of appendectomy Family History Family History Father HTN (hypertension) Mother HTN (hypertension) Brother No problems noted. Brother No problems noted. Son No problems noted. Son No problems noted. Daughter No problems noted. Social History Social History Housing: Apartment Alcohol intake: never Patient Tobacco Use Status: Never used Tobacco e-Cigarette/Vaping Use: Never Used Advance Directives: No Advance Directives Information Provided: No Current occupational status: unemployed Gender identity: Female Physical Exam Verdana 4l Vital Signs: Verdana 4d Verdana 4d Vital Signs: Verdana 4d Verdana 4Bd Last Vital Signs Verdana 4d Patron Attendant New 4d Patron Attendant New 4d Temp 98.3 F 11/29/21 09:57 Patron Attendant New 4d Pulse 80 11/29/21 09:57 Patron Attendant New 4d Resp 18 11/29/21 09:57 BP 179/90 H 11/29/21 09:57 Pulse Ox 100 11/29/21 09:57 BMI result Body Mass Index 34.5 vital signs have been reviewed as normal and appeared to be correct. Blood pressure 170/90. Heart rate normal. Respiration rate normal. Temperature normal. Oxygen saturation normal. Appearance: Alert. Oriented X3. No acute distress. Head: Normal external exam. Normocephalic. Atraumatic. Eyes: PERRLA. EOMI. Conjunctiva and sclera normal. Eyelids normal. ENT: EAC normal. TM's Normal. Pharynx normal. Uvula midline. Moist mucous membranes. No trismus noted. No drooling noted. No muffled voice noted. Neck: Normal inspection. Neck supple. FROM. No adenopathy. Thyroid Normal. No meningeal signs. No neck mass noted. CVS: Normal heart rate and rhythm. Heart sound normal. Pulses normal throughout. No murmurs/rales/gallops. Respiratory: No respiratory distress. Painless inspiration. Breath sounds normal. No wheezes/rales/rhonchi noted. Chest nontender. No accessory muscle usage noted or decreased air movement noted. Abdomen: Soft and nontender. Bowel sounds normal in all 4 quadrants. No distention noted. No organomegaly noted. No visible injury noted. Back: No CVA tenderness. Full range of motion noted. No rashes/lesion/induration/fluctuance or signs of infection noted. Skin: Skin warm and dry. Normal skin color. Normal skin turgor. No rashes/lesions/lacerations noted. Extremities: No lower extremity edema. No calf tenderness noted b/l. Extremities exhibit normal range of motion. Extremities nontender. Neuro: Oriented X 3. No motor deficit. No sensory deficit. Reflexes normal. Normal steady gait. No focal neuro deficits noted. Vascular: + radial pulses/+ 2 distal pedal pulses/+2 dorsalis pedis b/l. Normal cap refill. No cyanosis noted to upper extremity nails and lower extremity toes nails. Course Course Course Narrative: 41-year-old female with a past medical history of anemia, hyperlipidemia, hypertension, lung nodule, kidney stones, ovarian cyst, anxiety, sciatica, sigmoid thickening who was vaccinated to COVID and had COVID in August 2020 presenting to the ED with complaints of fevers up to 102, chills, body aches, myalgias, fatigue, intermittent headaches, sore throat, dry cough with chest tightness for the past 2 days worse since last night with associated nausea and vomiting. Denies any dizziness, neck pain/stiffness, trouble swallowing or breathing, chest pain or shortness of breath, dyspnea on exertion, orthopnea, palpitations, black or bloody emesis, abdominal pain, back pain, dysuria, hematuria, diarrhea constipation, rashes, recent travel or sick contacts or any other symptoms complaints or concerns at this time. On exam patient is alert and oriented x3. Not in any acute distress. Mildly hypertensive at 179/90 although patient has a history of hypertension. Neck is soft nontender and supple no meningeal signs noted. Posterior pharynx within normal limits no erythema or enlargement of the tonsils or exudate noted on my exam. Thyroid normal. No neck mass noted. Lungs clear to auscultation. Abdomen is soft and nontender. CV RRR. No CVA tenderness noted. No lower extremity edema or calf tenderness is noted. Therefore at this time will give 4 mg of p.o. Zofran, obtain a chest x-ray and rapid strep as patient is negative for COVID then re-evaluate. Reevaluation(s) Reevaluation #1: Chest x-ray negative and strep culturetherefore will DC home with symptomatic treatment instructions to self isolate per CDC guidelines and have repeat testing if symptoms persist and to return if any new or worsening sign follow-up with primary care provider. Patient understands agrees with this plan. Time: 11:41 MDM - URI/Sore Throat Medical Records Attestation: I reviewed the patient's medical records. Lab Data Attestation: I reviewed the patient's lab results. Labs: Lab Results 11/29/21 11/29/21 Range/Units 10:16 10:41 COVID-19 (DYLAN) Negative (Negative) COVID-19 Clin Com See Note S. pyogenes GrpA MAURY Negative (Negative) Imaging Data Chest x-ray: Attestation: I personally reviewed and interpreted this imaging study as follows: Radiologist's impression: FINDINGS: No significant abnormality is noted involving the heart, lungs, mediastinum, bony thorax or soft tissues. XR/XR chest 2V IMPRESSION: Unremarkable chest examination. Discharge Plan Discharge Clinical Impression: Acute viral syndrome Patient Disposition: Home, Self-Care Additional Instructions: You had a negative COVID test today. Although your chest x-ray was also negative and a negative strep throat culture was also negative. If you continue to have symptoms and you need to self isolate and follow CDC guidelines and have repeat testing in approximately 5-7 days. Return if any new or worsening symptoms follow-up with your primary care provider. Prescriptions: New azithromycin 250 mg tablet See Rx Instructions .ROUTE .COMPLEX Qty: 6 0RF Rx Instructions: take 500 mg today (day 1), then 250 mg for 4 days (days 2-5) codeine-guaifenesin [Guaifenesin AC] 10-100 mg/5 mL liquid 5 ml PO Q6H PRN (Reason: cold symptoms) Qty: 120 0RF ibuprofen 800 mg tablet 800 mg PO Q8H PRN (Reason: pain) Qty: 14 0RF acetaminophen [Tylenol Extra Strength] 500 mg tablet 1,000 mg PO QID PRN (Reason: fever or pain) Qty: 14 0RF No Action lactulose 10 gram/15 mL (15 mL) solution 20 g PO TID Qty: 750 0RF psyllium husk [Metamucil] 0.4 gram capsule 0.4 g PO DAILY Qty: 60 0RF Referrals: Liza Mosquera MD [Primary Care Provider] - 2 days Print Language: Serbian
[2021-11-29 10:37] LABS: COVID-19 Test Negative (Negative); IDNOW Serial# 9DD0AD1C
[2021-11-29] MEDS: Ondansetron ODT 4 MG TAB.RAPDIS TRANSLINGU (10:40)
[2021-11-29 11:00] LABS: Strep A Nucleic Acid Negative (Negative)
== END 2021-11-29 11:51 | disposition home or self-care (01) ==
PROVIDERS: Physician Assistant Medical; Emergency Provider Emergency Medicine Emergency Medical Services; PCP Internal Medicine
DX: B34.9 Viral infection, unspecified (principal); Z20.822 Contact with and (suspected) exposure to COVID-19; J02.9 Acute pharyngitis, unspecified
CPT/HCPCS: 36415; 71046; 87635; 87651; 99283

== ENCOUNTER 2021-12-15 08:27 | Outpatient (REF) | payer OTHER, SELFPAY ==
[2021-12-15 11:36] LABS: Estimated Average Glucose 171 mg/dL; Hemoglobin A1C 159.7535 umol/L; Hemoglobin A1c % 7.6 %
[2021-12-15 11:57] LABS: Alanine Aminotransferase 19 U/L (0-31); Alkaline Phosphatase 110 U/L (39-117); Anion Gap 12 (12-20); Aspartate Amino Transferase 17 U/L (5-31); Bilirubin Total 0.3 mg/dL (0.0-1.0); Blood Urea Nitrogen 8 mg/dL (9-16); Calcium 9.6 mg/dL (8.4-10.2); Carbon Dioxide 25 mmol/L (22-29); Chloride 103 mmol/L (96-108); Cholesterol 194 mg/dL; Estimated Glomerular Filt Rate > 60; Glucose Fasting 134 mg/dL (60-99); HDL Cholesterol 37 mg/dL; Iron 20 mcg/dL (30-160); LDL Cholesterol Calculated 133 mg/dl; Potassium 4.4 mmol/L (3.3-5.1); Sodium 136 mmol/L (135-145); Total Protein 7.3 g/dL (6.5-8.0); Triglycerides 120 mg/dL
[2021-12-15 11:58] LABS: TSH reflex Free T4 2.74 uIU/mL (0.32-4.0)
[2021-12-15 12:09] LABS: Percent Iron Saturation 4 % (15-50); Total Iron Binding Capacity 473 mcg/dL (228-428); Unsaturated Iron Binding 453 ug/dL
== END 2021-12-15 08:28 | disposition home or self-care (01) ==
LOC: HO.HMGCLDS 08:27
PROVIDERS: PCP Internal Medicine; Visit Provider Internal Medicine
DX: Z00.00 Encounter for general adult medical examination without abnormal findings (principal); E78.5 Hyperlipidemia, unspecified; R73.9 Hyperglycemia, unspecified; D64.9 Anemia, unspecified
CPT/HCPCS: 36415; 80053; 80061; 83036; 83540; 84443

== ENCOUNTER → 2022-03-07 14:34 | Outpatient (BNVA) | payer OTHER, SELFPAY | PROVIDERS: PCP Internal Medicine; Referring Provider Internal Medicine; Visit Provider Nurse Practitioner Family | DX: K59.01 Slow transit constipation (principal); R10.12 Left upper quadrant pain | CPT/HCPCS: 99202 ==

== ENCOUNTER 2022-03-09 08:36 | Outpatient (REF) | payer OTHER, SELFPAY ==
[2022-03-09 12:21] LABS: Lipase 34 U/L (8-78)
[2022-03-09 12:48] LABS: Folate 2.6 ng/mL (> or = 4.0); Vitamin B12 220 pg/mL (200-900)
[2022-03-13 14:06] LABS: Vitamin D 25-OH, D2 <4 ng/mL; Vitamin D 25-OH, D3 8 ng/mL; Vitamin D 25-OH, Total 8 ng/mL (30-100)
[2022-03-15 07:55] LABS: Transglutaminase Ab IgG <1.0 U/mL; Transglutaminase IgA <1.0 U/mL
== END 2022-03-09 08:37 | disposition home or self-care (01) ==
LOC: HO.HMGCLDS 08:36
PROVIDERS: PCP Internal Medicine; Visit Provider Nurse Practitioner Family
DX: R10.9 Unspecified abdominal pain (principal); R19.7 Diarrhea, unspecified; E55.9 Vitamin D deficiency, unspecified
CPT/HCPCS: 36415; 82306; 82607; 82746; 83690; 86364

== ENCOUNTER 2022-06-14 13:50 | Outpatient (REF) | payer OTHER, SELFPAY ==
[2022-06-14 16:41] LABS: MANUAL DIFF FLAG NO
[2022-06-14 16:55] LABS: Basophils Absolute Auto 0.1 X10*3/uL (0.0-0.2); Basophils Percent Auto 0.7 % (0-2); Eosinophils Percent Auto 0.4 % (0-4); Hematocrit 31.6 % (37.0-47.0); Hemoglobin 9.1 g/dl (12.0-16.0); Imm Gran Abs Auto 0.04 X10*3/uL (0.00-0.03); Imm Gran Pct Auto 0.6 % (0.0-0.4); Lymphocytes Absolute Auto 1.8 X10*3/uL (1.2-4.9); Lymphocytes Percent Auto 25.7 % (20-40); Mean Corpuscular HGB Conc 28.8 g/dl (31.0-35.0); Mean Corpuscular Hemoglobin 18.5 pg (27.0-33.0); Mean Platelet Volume 10.7 fL (9.4-12.3); Monocytes Absolute Auto 0.4 X10*3/uL (0.1-1.2); Monocytes Percent Auto 5.9 % (2-11); Neutrophils Absolute Auto 4.5 x10*3/uL (2.0-8.3); Neutrophils Percent Auto 66.7 % (45-73); Platelet Count 399 X10*3/uL (160-400); Red Blood Count 4.92 X10*6/uL (4.20-5.50); Red Cell Distribution Width 18.9 % (11.0-16.0); White Blood Count 6.8 X10*3/uL (4.8-10.8)
[2022-06-14 17:01] LABS: Mean Corpuscular Volume 64.2 fL (80.0-98.0)
[2022-06-14 17:04] LABS: Estimated Average Glucose 166 mg/dL; Hemoglobin A1c % 7.4 %
[2022-06-14 17:18] LABS: Alanine Aminotransferase 19 U/L (0-31); Albumin Level 3.9 g/dL (3.5-5.0); Alkaline Phosphatase 113 U/L (39-117); Anion Gap 13 (12-20); Aspartate Amino Transferase 20 U/L (5-31); Bilirubin Total < 0.2 mg/dL (0.0-1.0); Blood Urea Nitrogen 9 mg/dL (9-16); Calcium 8.7 mg/dL (8.4-10.2); Carbon Dioxide 25 mmol/L (22-29); Chloride 104 mmol/L (96-108); Cholesterol 202 mg/dL; Estimated Glomerular Filt Rate > 60; Glucose Fasting 246 mg/dL (60-99); HDL Cholesterol 38 mg/dL; LDL Cholesterol Calculated 102 mg/dl; Potassium 4.3 mmol/L (3.3-5.1); Sodium 138 mmol/L (135-145); Total Protein 7.2 g/dL (6.5-8.0); Triglycerides 312 mg/dL
== END 2022-06-14 13:51 | disposition home or self-care (01) ==
LOC: HO.HMGCLDS 13:50
PROVIDERS: PCP Internal Medicine; Visit Provider Internal Medicine
DX: R10.31 Right lower quadrant pain (principal); K57.92 Diverticulitis of intestine, part unspecified, without perforation or abscess without bleeding; E78.5 Hyperlipidemia, unspecified; R73.9 Hyperglycemia, unspecified; N92.6 Irregular menstruation, unspecified
CPT/HCPCS: 36415; 80053; 80061; 83036; 85025

== ENCOUNTER 2022-06-15 09:03 | Outpatient (REF) | payer OTHER, SELFPAY ==
--- NOTE | ~2022-06-15 | CT_ITS ---
EXAMINATION: CT ABDOMEN AND PELVIS WITH CONTRAST CLINICAL INFORMATION: Diverticulitis of the intestine COMPARISON: 09/07/2021 TECHNIQUE: Multidetector volumetric images were obtained from the superior aspect of the liver through the pubic symphysis following administration 85 mL of Omnipaque 350 intravenous contrast. Sagittal and coronal reformatted images were obtained on the technologist's workstation. Oral contrast: No This CT examination was performed using dose optimization techniques as appropriate, variously including the following: *Automated exposure control *Adjustment of mA and/or kV according to patient size (this includes techniques or standardized protocols for targeted exams where dose is matched to indication/reason for exam; i.e. extremities or head) *Use of iterative reconstruction technique DLP: 611 mGy-cm FINDINGS: LUNG BASES: The visualized lung bases are unremarkable. LIVER, GALLBLADDER, AND BILIARY TREE: Possible fatty liver change. Small area of nonenhancement negative. Ligaments similar to previous. The gallbladder is unremarkable with no evidence of radiopaque gallstones, gallbladder wall thickening, or obvious pericholecystic inflammatory changes. PANCREAS: Unremarkable. SPLEEN: Unremarkable. ADRENAL GLANDS: Unremarkable. KIDNEYS AND URETERS: The kidneys are normal in size, shape, and attenuation. No hydronephrosis, hydroureter, or calculi seen. No perinephric stranding. Small areas of nonenhancement may represent evolving cysts BLADDER: Mildly thick-walled bladder GASTROINTESTINAL TRACT: There is some evidence of diverticulosis. No evidence for diverticulitis. No suspicious fluid collection.. A normal appendix is not seen but no definitive suspicion around the cecum Nonobstructing bowel pattern. ABDOMINAL WALL: No significant hernia is appreciated. LYMPH NODES: Normal. VASCULAR: Unremarkable. PELVIC VISCERA: Right adnexal cyst. 3.6 x 3 cm OSSEOUS STRUCTURES: Unremarkable. CT/CT abdomen pelvis w con IMPRESSION: The bowel pattern is nonobstructing. There are some diverticula present but no evidence for diverticulitis. Right adnexal cyst is noted. Mildly thick-walled bladder. Cystitis cannot be excluded Other findings as noted above Fleischner guidelines were followed.
[2022-06-15] MEDS: iohexoL 350 MG/ML 100 ML INFUS..BTL 85 ML IV (11:42)
[2022-06-15] MEDS: Barium Sulfate Oral (Vanilla) 450 ML ORAL.SUSP 900 ML PO (11:43)
== END 2022-06-15 09:04 | disposition home or self-care (01) ==
LOC: HO.CT 09:03
PROVIDERS: PCP Internal Medicine; Visit Provider Internal Medicine
DX: R10.31 Right lower quadrant pain (principal); K57.92 Diverticulitis of intestine, part unspecified, without perforation or abscess without bleeding
CPT/HCPCS: 74177; Q9967

== ENCOUNTER 2022-06-16 14:28 | Outpatient (REF) | payer OTHER, SELFPAY | END 2022-06-16 14:29 | disposition home or self-care (01) | LOC: HO.HMGCLDS 14:28 | PROVIDERS: PCP Internal Medicine; Visit Provider Internal Medicine | DX: R10.31 Right lower quadrant pain (principal) | CPT/HCPCS: 87086 ==

== ENCOUNTER → 2022-06-27 10:21 | Outpatient (BNVA) | payer OTHER, SELFPAY | PROVIDERS: PCP Internal Medicine; Visit Provider Advanced Practice Midwife | DX: R10.2 Pelvic and perineal pain (principal); R10.31 Right lower quadrant pain | CPT/HCPCS: 99202 ==

== ENCOUNTER 2022-06-28 12:08 | Outpatient (REF) | payer OTHER, SELFPAY ==
--- NOTE | ~2022-06-28 | US_ITS ---
EXAMINATION: US PELVIS CLINICAL INFORMATION: Pain COMPARISON: Previous pelvic ultrasound June [address] of the abdomen and pelvis 06/15/2022 TECHNIQUE: Ultrasound of the pelvis is performed using both transabdominal and transvaginal transducers along with Doppler. Transvaginal imaging is performed due to inadequate visualization transabdominally. FINDINGS: The uterus is anteverted and retroflexed and measures 10 x 4.5 x 4.7 cm in dimension. No focal uterine lesion is seen. Endometrial thickness is normal measuring 1.4 cm. There are nabothian cysts in the cervix. The ovaries are normal. The right ovary measures 3 x 2 x 2.3 cm. The left ovary measures 2.4 x 2 x 1.8 cm. There is no fluid in the pelvis. US/US pelvic and transvaginal IMPRESSION: Unremarkable exam.
== END 2022-06-28 12:09 | disposition home or self-care (01) ==
LOC: HO.US 12:08
PROVIDERS: Visit Provider Advanced Practice Midwife
DX: R10.2 Pelvic and perineal pain (principal); R10.31 Right lower quadrant pain
CPT/HCPCS: 76830; 76856

== ENCOUNTER 2022-08-01 09:29 | Emergency (ER) | payer OTHER, SELFPAY ==
--- NOTE | ~2022-08-01 | XR_ITS ---
EXAMINATION: XR CHEST CLINICAL INFORMATION: Cough. COMPARISON: 11/29/2021 chest radiographs. TECHNIQUE: Frontal view of the chest was obtained. FINDINGS: No significant abnormality is noted involving the heart, lungs, mediastinum, bony thorax or soft tissues. XR/XR chest 1V IMPRESSION: No acute cardiopulmonary process.
[2022-08-01 10:16] VITALS: BP 150/89; PULSE 81; RESP 18; TEMP 36.8; O2SAT 100; BMI 34.7
[2022-08-01 11:03] LABS: Influenza A PCR NEGATIVE (Negative); Influenza B PCR NEGATIVE (Negative); Resp Syncy Virus RNA Qual PCR NEGATIVE (Negative); SARS COV2 PCR INHOUSE NEGATIVE (Negative)
[2022-08-01] MEDS: Ondansetron ODT 4 MG TAB.RAPDIS TRANSLINGU (11:41)
[2022-08-01] MEDS: Butalb/Acetamin/Caff 50/325/40 TABLET 2 TAB PO (11:50)
[2022-08-01 11:55] LABS: Strep A Nucleic Acid Negative (Negative)
--- NOTE | 2022-08-01 13:15 | ED_ITS ---
HPI - URI/Sore Throat General Chief Complaint: Upper Respiratory Symptoms Stated Complaint: sore throat, fever, cough Time Seen by Provider: 08/01/22 11:19 Source: patient Mode of arrival: ambulatory History of Present Illness HPI Narrative: 41-year-old female with past medical history of anemia, anxiety, constipation, HLD, sciatica, presenting to the ED complaining productive cough, sore throat, chest discomfort when coughing, and headache x1 week. States head feels sensitive. Denies headache being maximal at onset. Denies vision change/loss, fever, nausea/vomiting, ear pain, SOB, travel, sick contacts MD elicited complaint: cough and sore throat Onset (ago): week(s) Related Data Previous Rx's Medication Instructions Recorded methylcellulose (laxative) 500 mg 500 mg PO DAILY #90 tabs 03/07/22 tablet (Citrucel) sennosides 8.6 mg tablet (Natural 8.6 mg PO BEDTIME constipation #90 03/07/22 Senna Laxative) tabs cholecalciferol (vitamin D3) 1,250 1,250 mcg PO QWEEK #13 caps 03/13/22 mcg (50,000 unit) capsule folic acid 1 mg tablet 1 mg PO DAILY #30 tabs 03/13/22 metformin 850 mg tablet 850 mg PO DAILY #30 tabs 06/15/22 FreeStyle [place] Lite #1 ea 06/16/22 (blood-glucose meter) FreeStyle Lite Strips (blood sugar #100 ea 06/16/22 diagnostic) lancets 28 gauge (FreeStyle #100 ea 06/16/22 Lancets) acetaminophen 500 mg tablet 500 mg PO Q6H PRN fever or pain 08/01/22 (Tylenol Extra Strength) #14 tabs benzonatate 100 mg capsule 100 mg PO TID PRN cough #14 caps 08/01/22 szzrufstvf-pugesywlnpqos-mbqkklue 1 cap PO Q4-6H PRN headache #14 08/01/22 50 mg-300 mg-40 mg capsule caps (Fioricet) dextromethorphan-guaifenesin 5 10 ml PO Q4-8H PRN cough #118 mL 08/01/22 mg-100 mg/5 mL oral liquid (Child Robitussin Cough-Chest DM) Allergies Allergy/AdvReac Type Severity Reaction Status Date / Time No Known Allergies Allergy Mild NOT Verified 07/12/22 10:06 [No Known Allergies*] APPLICABLE Review of Systems Review of Systems: Constitutional: No Fever, No Chills,No Fatigue, No Malaise ENT/Mouth: No Ear Pain, + Nasal Congestion, No Sinus Pain, No Hoarseness, + sore throat, No Rhinorrhea, No Swallowing Difficulty Eyes: No Eye Pain, No Swelling, No Redness, No Discharge, No Vision Changes Cardiovascular: + Chest Pain when coughing, No SOB, No Dyspnea on Exertion, No Orthopnea, No Edema Respiratory: No Cough, No Sputum, No Wheezing, No Dyspnea Gastrointestinal: No Nausea, No Vomiting, No Diarrhea, No Constipation, No Abdominal pain Genitourinary: No Dysuria, No Urinary Frequency, No Hematuria, No Flank Pain, No Urinary Flow Changes, No Hesitancy Musculoskeletal: No joint pain, No Myalgias, No Joint Swelling Skin: No Skin Lesions, No rash Neuro: No Weakness, No Numbness, No Paresthesias, No Loss of Consciousness, No Dizziness, + Headache Yes all other systems are reviewed and are negative Constitutional: Constitutional: Reports as per [facility] Past Medical History Attestation statement: The following information was validated with the patient. Medical History Anemia Annual physical exam Anxiety Constipation Hyperglycemia Hyperlipidemia Lung nodule seen on imaging study Sciatica Sigmoid thickening Surgical History History of appendectomy Family History Family History Father HTN (hypertension) Mother HTN (hypertension) Brother No problems noted. Brother No problems noted. Son No problems noted. Son No problems noted. Daughter No problems noted. Social History Social History Housing: Apartment Alcohol intake: never Patient Tobacco Use Status: Never used Tobacco e-Cigarette/Vaping Use: Never Used Advance Directives: No Advance Directives Information Provided: No Current occupational status: unemployed Gender identity: Female Cognitive needs: No Hearing needs: No Vision needs: Yes Physical Exam Vital Signs: Vital Signs: Last Vital Signs Temp 98.2 F 08/01/22 10:16 Pulse 81 08/01/22 10:16 Resp 18 08/01/22 10:16 BP 150/89 H 08/01/22 10:16 Pulse Ox 100 08/01/22 10:16 O2 Del Method 08/01/22 10:16 BMI result Body Mass Index 34.7 Const: General: cooperative, healthy appearing and no acute distress Orientation/consciousness: patient oriented x3 Limitations: no limitations HEENT: Head: Yes normal to inspection and Yes atraumatic Ears: hearing grossly normal bilaterally General nose exam: Normal external nose present Face and sinus: Yes normal facial exam Eyes: General: appearance normal, both eyes and all related structures Pupils: Equal, round and reactive pupils present EOM: EOMs intact bilaterally Neck: Neck: Yes normal visual inspection, Yes no lymphadenopathy and Yes no meningeal signs Resp: Effort & Inspection: normal respiratory effort and no respiratory distress Auscultation: clear to auscultation bilaterally, no crackles, no rales and no rhonchi Cardio: Rate: regular rate Heart sounds: S1 normal heart sound present and S2 normal heart sound present GI: Inspection: Yes normal to inspection Palpation (GI): Soft to palpation, nontender, no guarding and not rigid : General: Yes no CVA tenderness Back/Spine/Pelvis: Back: no CVA tenderness Skin: Rashes: no rashes Wounds: no wounds Neuro: General: patient oriented x3, gait normal, tone normal, moves all extremities, no meningeal signs, no focal motor deficits and CN's II-XI intact bilaterally Cranial nerves: Yes CN's II-XII intact bilaterally and Yes Equal, round and reactive pupils present Gait exam (Neuro): Normal gait present Motor exam (neuro): 5/5 motor strength present throughout Extrem: General: Yes normal to inspection Course Course Course Narrative: -COVID-19/influenza/RSV negative. Rapid strep negative XR chest 1V IMPRESSION: No acute cardiopulmonary process. -1315--on re-evaluation patient reports symptomatic improvement in headache resolution after p.o. medications given in the ED Results discussed with patient including worrisome signs and symptoms and strict return precautions, and when to return to the emergency department. They verbalized understanding and feel safe for discharge at this time. MDM - URI/Sore Throat MDM Narrative Medical decision making narrative: 41-year-old female with past medical history of anemia, anxiety, constipation, HLD, sciatica, presenting to the ED complaining productive cough, sore throat, chest discomfort when coughing, and headache x1 week. On exam vital signs stable, NAD, nontoxic appearing, no focal neuro deficits. Concern for viral illness vs migraine headache vs pneumonia. Low suspicion for ACS/PE, SAH or ICH. Plan: COVID-19/influenza/RSV testing, rapid strep, CXR Differential Diagnosis Differential diagnosis: Likely upper respiratory infection, viral infection, bronchitis, influenza and pharyngitis Medical Records Attestation: I reviewed the patient's medical records. Lab Data Attestation: I reviewed the patient's lab results. Labs: Lab Results 08/01/22 08/01/22 Range/Units 10:20 11:32 Influenza Type A (PCR) NEGATIVE (Negative) Influenza Type B (PCR) NEGATIVE (Negative) RSV RNA Qual (PCR) NEGATIVE (Negative) SARS-CoV-2 RNA (RT-PCR) NEGATIVE (Negative) S. pyogenes GrpA MAURY Negative (Negative) Discharge Plan Discharge Clinical Impression: Headache, URI (upper respiratory infection) Patient Disposition: Home, Self-Care Instructions: Upper Respiratory Infection (ED), Acute Headache (ED) Additional Instructions: You tested negative for COVID-19, flu, RSV, and strep throat. Her chest x-ray is unremarkable Erik Mayes for cough, take as needed. Additionally Robitussin will help with cough. Fioricet as a headache medication, take as needed for headache. Take Tylenol and Motrin. If symptoms persist or worsen, fever unresolved medications, persistent cough, return to the ED. Follow-up with your Dr. Prescriptions: New sjfwjwoyrm-wjbxjoyehdkhq-nfym [Fioricet] 50-300-40 mg capsule 1 cap PO Q4-6H PRN (Reason: headache) Qty: 14 0RF acetaminophen [Tylenol Extra Strength] 500 mg tablet 500 mg PO Q6H PRN (Reason: fever or pain) Qty: 14 0RF benzonatate 100 mg capsule 100 mg PO TID PRN (Reason: cough) Qty: 14 0RF Chld Robitussin Cough-Chest DM 5-100 mg/5 mL liquid 10 ml PO Q4-8H PRN (Reason: cough) Qty: 118 0RF No Action folic acid 1 mg tablet 1 mg PO DAILY Qty: 30 3RF cholecalciferol (vitamin D3) 1,250 mcg (50,000 unit) capsule 1,250 mcg PO QWEEK Qty: 13 0RF (DME) blood-glucose meter [FreeStyle [place] Lite] Kit See Rx Instructions .Route Qty: 1 0RF Rx Instructions: As directed to test blood sugar (DME) lancets [FreeStyle Lancets] 28 gauge misc See Rx Instructions .Route Qty: 100 3RF Rx Instructions: test blood sugar once a day (DME) FreeStyle Lite Strips Strip See Rx Instructions .Route Qty: 100 3RF Rx Instructions: test blood sugar once a day metformin 850 mg tablet 850 mg PO DAILY Qty: 30 2RF Citrucel 500 mg tablet 500 mg PO DAILY Qty: 90 2RF Rx Instructions: take it with full glass of water sennosides [Natural Senna Laxative] 8.6 mg tablet 8.6 mg PO BEDTIME Qty: 90 3RF Referrals: Liza Mosquera MD [Primary Care Provider] - 3 days
== END 2022-08-01 13:29 | disposition home or self-care (01) ==
PROVIDERS: Physician Assistant; Emergency Provider Emergency Medicine; PCP Internal Medicine
DX: J06.9 Acute upper respiratory infection, unspecified (principal); J02.9 Acute pharyngitis, unspecified; R07.89 Other chest pain; R50.9 Fever, unspecified; R51.9 Headache, unspecified; R05.9 Cough, unspecified; Z20.822 Contact with and (suspected) exposure to COVID-19; Z79.899 Other long term (current) drug therapy
CPT/HCPCS: 0241U; 36415; 71045; 87651; 99283

== ENCOUNTER 2022-12-14 11:05 | Outpatient (REF) | payer OTHER, SELFPAY ==
--- NOTE | ~2022-12-14 | MM_ITS ---
EXAMINATION: MM SCREENING DIGITAL BREAST TOMOSYNTHESIS, BILATERAL CLINICAL INFORMATION: Screening. Asymptomatic. The lifetime risk of breast cancer based on the Tyrer-Cuzick Model is 9%. COMPARISON: Mammography: 03/04/2019, 06/20/2017, 05/24/2016 TECHNIQUE: Digital breast tomosynthesis is performed in both the craniocaudal and mediolateral oblique views along with computer-aided detection (CAD). Synthesized 2D images are generated from the tomosynthesis. Additional left MLO view is provided. FINDINGS: There are scattered areas of fibroglandular density (ACR BI-RADS breast composition Category b). Right breast has nodule posterior 6:00 position 0.8 cm with incompletely defined margins residing close to skin, not seen with certainty on prior studies. Patient will be recalled for additional imaging. Left breast has some scattered intramammary nodes outer quadrant similar to prior exams and a small circumscribed stable nodule close to skin mid medial breast. No significant change. Neither breast shows abnormal calcifications. The axilla are unremarkable. MM/MM tomosynthesis screening BI IMPRESSION: Right: -Nodule posterior 6:00 position close to skin with incompletely defined margins. Left: -No significant changes from prior exams. ASSESSMENT: BI-RADS 0: Incomplete - Need Additional Imaging Evaluation RECOMMENDATION: 1. Assess for dermal lesion posterior 6:00 area and obtain imaging with skin marker if applicable. Otherwise, spot CC, spot ML. 2. Targeted ultrasound if warranted after review of the additional views. 3. Radiology department staff will contact the patient for additional imaging. This patient's information was entered into a reminder system with a target due date for their next mammogram.
== END 2022-12-14 11:06 | disposition home or self-care (01) ==
LOC: HO.MAMMO 11:05
PROVIDERS: PCP Internal Medicine; Visit Provider Internal Medicine
DX: Z12.31 Encounter for screening mammogram for malignant neoplasm of breast (principal)
CPT/HCPCS: 77063; 77067

== ENCOUNTER 2023-01-01 07:50 | Outpatient (REF) | payer OTHER, SELFPAY ==
[2023-01-01 11:43] LABS: MANUAL DIFF FLAG NO
[2023-01-01 11:57] LABS: Basophils Absolute Auto 0.1 X10*3/uL (0.0-0.2); Basophils Percent Auto 0.8 % (0-2); Eosinophils Absolute Auto 0.1 X10*3/uL (0.0-0.4); Eosinophils Percent Auto 0.7 % (0-4); Hematocrit 31.1 % (37.0-47.0); Hemoglobin 8.8 g/dl (12.0-16.0); Imm Gran Abs Auto 0.01 X10*3/uL (0.00-0.03); Imm Gran Pct Auto 0.1 % (0.0-0.4); Lymphocytes Absolute Auto 2.5 X10*3/uL (1.2-4.9); Lymphocytes Percent Auto 33.4 % (20-40); Mean Corpuscular HGB Conc 28.3 g/dl (31.0-35.0); Mean Corpuscular Hemoglobin 17.4 pg (27.0-33.0); Mean Platelet Volume 10.2 fL (9.4-12.3); Monocytes Absolute Auto 0.5 X10*3/uL (0.1-1.2); Monocytes Percent Auto 6.3 % (2-11); Neutrophils Absolute Auto 4.5 x10*3/uL (2.0-8.3); Neutrophils Percent Auto 58.7 % (45-73); Platelet Count 391 X10*3/uL (160-400); Red Blood Count 5.06 X10*6/uL (4.20-5.50); Red Cell Distribution Width 18.8 % (11.0-16.0); White Blood Count 7.6 X10*3/uL (4.8-10.8)
[2023-01-01 11:58] LABS: Mean Corpuscular Volume 61.5 fL (80.0-98.0)
[2023-01-01 12:09] LABS: Estimated Average Glucose 197 mg/dL; Hemoglobin A1c % 8.5 %
[2023-01-01 12:14] LABS: Alanine Aminotransferase 26 U/L (0-31); Alkaline Phosphatase 101 U/L (39-117); Anion Gap 11 (12-20); Aspartate Amino Transferase 23 U/L (5-31); Bilirubin Total 0.4 mg/dL (0.0-1.0); Blood Urea Nitrogen 11 mg/dL (9-16); Calcium 8.7 mg/dL (8.4-10.2); Carbon Dioxide 23 mmol/L (22-29); Chloride 108 mmol/L (96-108); Cholesterol 184 mg/dL; Estimated Glomerular Filt Rate > 60; Glucose Fasting 168 mg/dL (60-99); HDL Cholesterol 38 mg/dL; Iron 19 mcg/dL (30-160); LDL Cholesterol Calculated 121 mg/dl; Percent Iron Saturation 4 % (15-50); Potassium 4.2 mmol/L (3.3-5.1); Sodium 138 mmol/L (135-145); Total Iron Binding Capacity 430 mcg/dL (228-428); Triglycerides 128 mg/dL; Unsaturated Iron Binding 411 ug/dL
[2023-01-01 12:31] LABS: TSH reflex Free T4 4.43 uIU/mL (0.32-4.0); Vitamin D 25-OH Total 9.7 ng/mL (>30)
[2023-01-01 12:37] LABS: Creatinine Urine 204.99 mg/dL; Microalbum/Creatinine Ratio Ur 8.7 ug/mg cr
[2023-01-02 18:39] LABS: Follicle Stimulating Hormone 3.3 mIU/mL
== END 2023-01-01 07:51 | disposition home or self-care (01) ==
LOC: HO.HMGCLDS 07:50
PROVIDERS: PCP Internal Medicine; Visit Provider Internal Medicine
DX: Z00.00 Encounter for general adult medical examination without abnormal findings (principal); E78.5 Hyperlipidemia, unspecified; E11.9 Type 2 diabetes mellitus without complications; D64.9 Anemia, unspecified
CPT/HCPCS: 36415; 80053; 80061; 82043; 82306; 83001; 83036; 83540; 84439; 84443; 85025

== ENCOUNTER 2023-01-17 12:17 | Outpatient (REF) | payer OTHER, SELFPAY ==
[2023-01-17 13:19] LABS: Influenza A PCR NEGATIVE (Negative); Influenza B PCR NEGATIVE (Negative); Resp Syncy Virus RNA Qual PCR NEGATIVE (Negative); SARS COV2 PCR INHOUSE NEGATIVE (Negative)
== END 2023-01-17 12:18 | disposition home or self-care (01) ==
LOC: HO.LNP 12:17
PROVIDERS: Visit Provider Nurse Practitioner Family
DX: Z20.822 Contact with and (suspected) exposure to COVID-19 (principal); R68.89 Other general symptoms and signs
CPT/HCPCS: 0241U

== ENCOUNTER 2023-01-24 14:54 | Outpatient (REF) | payer OTHER, SELFPAY ==
--- NOTE | ~2023-01-24 | MM_ITS ---
EXAMINATION: MM DIAGNOSTIC DIGITAL BREAST TOMOSYNTHESIS, RIGHT CLINICAL INFORMATION: Right breast nodule. COMPARISON: Mammography: 12/14/2022 and studies dating back to 11/05/2015. TECHNIQUE: Digital breast tomosynthesis is performed. 2D images are generated from the tomosynthesis. The following views are obtained: Full-field craniocaudal and mediolateral oblique views of the right breast. FINDINGS: There are scattered areas of fibroglandular density (ACR BI-RADS breast composition Category b). There is a skin lesion noted about the inferior aspect of the right breast with marker being placed upon this. Repeat mammography demonstrates the marker to coincide with the density seen on mammography. No suspicious masses are identified. Results are provided to the patient at time of visit by the technologist. MM/MM tomosynthesis added views R IMPRESSION: Mammographic abnormality of the right breast corresponds to a skin lesion. ASSESSMENT: BI-RADS 2: Benign. RECOMMENDATION: Routine annual mammography screening due in 12 months. This patient's information was entered into a reminder system with a target due date for their next mammogram.
== END 2023-01-24 14:55 | disposition home or self-care (01) ==
LOC: HO.MAMMO 14:54
PROVIDERS: PCP Internal Medicine; Visit Provider Internal Medicine
DX: R92.2 Inconclusive mammogram (principal)
CPT/HCPCS: 77061; 77065

== ENCOUNTER 2023-05-30 15:41 | Outpatient (AMB) | payer OTHER, SELFPAY ==
--- NOTE | 2023-05-30 15:43 | AM.OFFWIN_ITS ---
Intake Vital Signs 05/30/23 15:47 BP 138/90 H Blood Pressure Location Lt brachial Position Sitting Pulse 80 Pulse Source Pulse Oximeter Temp 97.7 F Temp Source Temporal Artery Scan Pulse Oximetry (%) 98 Oxygen Delivery Method Room Air Intake Visit Reasons: EP, SOB, chest pain, dizziness Intake Note: Patient here for severe SOB which started this morning then a few hours ago she started to get very dizzy like she is going to pass out. Patient Tobacco Use Status: Never used Tobacco Allergies No Known Allergies [No Known Allergies*] Allergy (Mild, Verified 06/04/23 06:17) NOT APPLICABLE Medication List - Last Reconciled 06/04/23 by Roderick Gonsalez MD amoxicillin-pot clavulanate 875-125 mg 1 tab PO BID 7 days cholecalciferol (vitamin D3) 1,250 mcg PO 2XW 3 months flash glucose sensor (FreeStyle Tad 2 Sensor kit) As directed folic acid 1 mg PO DAILY FreeStyle [place] Lite (blood-glucose meter) As directed to test blood sugar NS FreeStyle Lite Strips (blood sugar diagnostic) test blood sugar once a day NS lancets (FreeStyle Lancets) test blood sugar once a day lidocaine HCl 2% (Lidocaine Viscous) 10 mL mucous membrane TID PRN 5 days metformin 850 mg PO BID prednisone 20 mg (20 mL) PO DAILY 5 days sennosides (Natural Senna Laxative) 8.6 mg PO BEDTIME PRN Do you need a note to return to daycare/school/sports/work: No HPI EP, SOB, chest pain, dizziness HPI Details For 42-year-old female presents to the office for a sick visit. Since this morning, patient is experiencing some form of air hunger. She is reporting that she is not able to take complete breaths. No nausea or vomiting. She went to the emergency room and decided to come here because of the long wait over there. No cough. [facility] Medical History Anemia Annual physical exam Anxiety Constipation Hyperglycemia Hyperlipidemia Lung nodule seen on imaging study Sciatica Sigmoid thickening Vitamin D deficiency Surgical History History of appendectomy Family History Father HTN (hypertension) Mother HTN (hypertension) Brother No problems noted. Brother No problems noted. Son No problems noted. Son No problems noted. Daughter No problems noted. Social History Housing: Apartment Alcohol intake: never Patient Tobacco Use Status: Never used Tobacco e-Cigarette/Vaping Use: Never Used Current occupational status: unemployed Gender identity: Female Cognitive needs: No Hearing needs: No Vision needs: Yes Female Reproductive History Menstrual Age of Menarche: 11 Physical Exam Vital Signs: Last Vital Signs Temp 97.7 F 05/30/23 15:47 Pulse 80 05/30/23 15:47 BP 138/90 H 05/30/23 15:47 Pulse Ox 98 05/30/23 15:47 Oxygen Delivery Method Room Air 05/30/23 15:47 Const General: cooperative and healthy appearing Nutritional Appearance: well nourished Orientation/consciousness: patient oriented x3 Limitations: no limitations HEENT Head: Yes normal to inspection Eyes General: appearance normal, both eyes and all related structures Neck Neck: Yes normal visual inspection Chest Chest palpation & inspection: normal palpation of entire chest wall Resp Effort & Inspection: normal respiratory effort Neuro General: patient oriented x3 Office Procedures Nebulizer Treatment Nebulizer Treatment [id number]/MDI RX initial, or Nebulizer Subsequent Treatment Office Meds albuterol sulfate Performing Provider: Roderick Gonsalez MD Administered by: Mary Cifuentes RN on 05/30/23 16:17 Dose Route Admin Location Lot Number Expiration Date [employer] 2.5 mg inhalation 11 [id number] 11/27/23 1129-3547-08 [facility] Comments: Instructed pt on proper administration of medication- proper return demonstration. Assessment & Plan Assessment & Plan (1) Shortness of breath: Code(s): R06.02 - Shortness of breath Plan: Patient responded very well to a single dose of albuterol. When I walked into the exam room, she was talking in full sentences in a rapid manner to someone on the phone. Part for symptoms could be anxiety. Patient was reassured. Her symptoms of air hunger had stopped or resolved before she left the office. Orders: Orders AMB Nebulizer Treatment 05/30/23 R06.02 - Shortness of breath Coding Level of Care Code Est Pt Level 4 (43743) Diagnoses Shortness of breath R06.02 CPT Codes Nebulizer Treatment - Nebulizer Treatment, initial or subsequent: 90860- Nebulizer/MDI RX initial, or Nebulizer Subsequent Treatment ([id number])
[2023-05-30 15:47] VITALS: BP 138/90; PULSE 80; TEMP 36.5; O2SAT 98
== END 2023-05-30 16:37 | disposition home or self-care (01) ==
PROVIDERS: PCP Internal Medicine; Visit Provider Internal Medicine
DX: R06.02 Shortness of breath (principal)
CPT/HCPCS: 94640; 99214; J7613

== ENCOUNTER 2023-06-06 15:17 | Outpatient (AMB) | payer OTHER, SELFPAY ==
--- NOTE | 2023-06-06 15:18 | MHC.OFFWIV ---
Intake Vital Signs 06/06/23 15:22 Height 5 ft 3 in Weight 178 lb BMI 31.5 BP 130/68 Blood Pressure Location Rt brachial Position Sitting Pulse 95 Pulse Source Pulse Oximeter Temp 97.7 F Temp Source Temporal Artery Scan Pulse Oximetry (%) 98 Oxygen Delivery Method Room Air Intake Visit Reasons: EST/cough and ear pain (masked lobby) Intake Note: Pt is here c/o cough, bilateral ear pain and feeling very dizzy. Pt states her fever was 102 yesterday and otc medications have not helped. Patient Tobacco Use Status: Never used Tobacco Allergies No Known Allergies [No Known Allergies*] Allergy (Mild, Verified 06/06/23 15:21) NOT APPLICABLE HPI HPI Comments History of Present Illness Details The patient presents to urgent care for evaluation of cough fever body aches right ear pain and sore throat. Symptoms starting yesterday. Patient reports fever last night she took ibuprofen and Tylenol. [facility] Medical History Anemia Annual physical exam Anxiety Constipation Hyperglycemia Hyperlipidemia Lung nodule seen on imaging study Sciatica Sigmoid thickening Vitamin D deficiency Surgical History History of appendectomy Family History Father HTN (hypertension) Mother HTN (hypertension) Brother No problems noted. Brother No problems noted. Son No problems noted. Son No problems noted. Daughter No problems noted. Social History Housing: Apartment Alcohol intake: never Patient Tobacco Use Status: Never used Tobacco e-Cigarette/Vaping Use: Never Used Current occupational status: unemployed Gender identity: Female Cognitive needs: No Hearing needs: No Vision needs: Yes Female Reproductive History Menstrual Age of Menarche: 11 Review of Systems Const Reports body aches, Reports chills, Reports fatigue, Reports fever(s), Reports headache(s) and Reports malaise ENT Denies dizziness, Reports headache(s), Reports nasal congestion and Reports sore throat Card Denies rapid heart rate, Denies dyspnea and Denies dyspnea on exertion Resp Denies dyspnea and Denies dyspnea on exertion GI Denies dyspepsia and Denies heartburn Musc Denies arthralgias and Denies muscle cramps Neuro Denies dizziness, Reports headache(s), Denies focal weakness and Denies Other visual disturbances Endo Reports fatigue Physical Exam Vital Signs: Last Vital Signs Temp 97.7 F 06/06/23 15:22 Pulse 95 06/06/23 15:22 BP 130/68 06/06/23 15:22 Pulse Ox 98 06/06/23 15:22 Oxygen Delivery Method Room Air 06/06/23 15:22 BMI result Body Mass Index 31.5 Const General: healthy appearing and no acute distress HEENT Mouth: Normal oral and palatal mucosa present Resp Effort & Inspection: normal respiratory effort and able to speak in complete sentences Auscultation: clear to auscultation bilaterally Cardio Rate: regular rate Rhythm: regular rhythm Assessment & Plan Assessment & Plan (1) Flu-like symptoms: Code(s): R68.89 - Other general symptoms and signs Plan Symptoms consistent with flu-like syndrome. Will send for rapid COVID testing. Patient requesting cough medicine as she was having trouble sleeping last night due to the cough. Orders: Orders BinaxNOW Covid-19 Ag Today J06.9 - Acute upper respiratory infection, unspecified Medications: New codeine-guaifenesin 10-100 mg/5 mL 5 mL PO Q6H PRN 120 mL 0RF allergy symptoms Coding Level of Care Code Est Pt Level 3 (42719) Diagnoses Flu-like symptoms R68.89
[2023-06-06 15:22] VITALS: BP 130/68; PULSE 95; TEMP 36.5; O2SAT 98; BMI 31.5
== END 2023-06-06 15:57 | disposition home or self-care (01) ==
PROVIDERS: PCP Internal Medicine; Visit Provider Emergency Medicine
DX: R68.89 Other general symptoms and signs (principal)
CPT/HCPCS: 99213

== ENCOUNTER 2023-06-07 06:25 | Outpatient (REF) | payer OTHER, SELFPAY ==
[2023-06-07 07:25] LABS: Binax Internal Control QC Valid; Binax Now Covid-19 Ag Positive (Negative); Binax Performed by: PAULP
== END 2023-06-07 06:26 | disposition home or self-care (01) ==
LOC: HO.HMGCLDS 06:25
PROVIDERS: PCP Internal Medicine; Visit Provider Emergency Medicine
DX: Z20.822 Contact with and (suspected) exposure to COVID-19 (principal); J06.9 Acute upper respiratory infection, unspecified
CPT/HCPCS: 87811; C9803

== ENCOUNTER 2023-06-08 12:51 | Emergency (ER) | payer OTHER, SELFPAY ==
--- NOTE | ~2023-06-08 | XR_ITS ---
EXAMINATION: XR CHEST CLINICAL INFORMATION: Cough COMPARISON: 08/01/2022 TECHNIQUE: Frontal view of the chest was obtained. FINDINGS: The lungs are well expanded. There is no focal consolidation, edema, or effusion. No pneumothorax. The cardiomediastinal silhouette is within normal limits. No acute osseous abnormality. XR/XR chest 1V IMPRESSION: Clear lungs.
[2023-06-08 13:44] VITALS: BP 144/80; PULSE 89; RESP 16; TEMP 36.6; O2SAT 96; BMI 30.5
--- NOTE | 2023-06-08 13:49 | ECG_ITS ---
Test Reason : SOB Blood Pressure : / mmHG Vent. Rate : 080 BPM Atrial Rate : 080 BPM P-R Int : 120 ms QRS Dur : 076 ms QT Int : 358 ms P-R-T Axes : -12 029 113 degrees QTc Int : 412 ms Normal sinus rhythm T wave abnormality, consider lateral ischemia Abnormal ECG When compared with ECG of 05-SEP-2021 20:31, No significant change was found Referred By: Jaci Robles Electronically Signed By:Kevin Hernandez
--- NOTE | 2023-06-08 13:49 | ED_ITS ---
HPI - General Adult General Chief complaint: General Medical Stated complaint: COVID + Diff Breathing Time Seen by Provider: 06/08/23 13:56 Source: patient Mode of arrival: ambulatory Limitations: no limitations History of Present Illness HPI narrative: 42 year old female without significant pmhx presents w/ dry cough, fatigue, malise, rib pain a/c w/ cough, sob, chest discomfort ( when coughing not at rest), myalgias X 3 days worsening. Test covid + yesterday however symptoms started sunday. Patient has two covid vaccines. This is not patients first time having covid. Denies CP at rest or w/ exertion only present w/ cough or deep breathing. Denies nausea, vomiting, abd pain, headache, vision changes, dizziness. Related Data Home Medications Medication Instructions Recorded Confirmed sennosides 8.6 mg tablet (Natural 8.6 mg PO BEDTIME PRN constipation 01/04/23 01/04/23 Senna Laxative) Previous Rx's Medication Instructions Recorded FreeStyle [place] Lite #1 ea 06/16/22 (blood-glucose meter) FreeStyle Lite Strips (blood sugar #100 ea 06/16/22 diagnostic) lancets 28 gauge (FreeStyle #100 ea 06/16/22 Lancets) flash glucose sensor (FreeStyle #2 ea 01/04/23 Tad 2 Sensor kit) metformin 850 mg tablet 850 mg PO BID #180 tabs 01/04/23 lidocaine HCl 2 % mucosal solution 10 ml mucous membrane TID PRN pain 01/17/23 (Lidocaine Viscous) 5 days #150 mL prednisone 5 mg/5 mL oral solution 20 mg (20 mL) PO DAILY 5 days #100 01/17/23 mL folic acid 1 mg tablet 1 mg PO DAILY #30 tabs 01/18/23 cholecalciferol (vitamin D3) 1,250 1,250 mcg PO 2XW 3 months #26 caps 03/28/23 mcg (50,000 unit) capsule codeine 10 mg-guaifenesin 100 mg/5 5 ml PO Q6H PRN allergy symptoms 06/06/23 mL oral liquid #120 mL albuterol sulfate 90 mcg/actuation 2 inh inhalation Q4-6H PRN 06/08/23 breath activated powder inhaler shortness of breath or wheezing #1 ea benzonatate 100 mg capsule 100 mg PO BID PRN cough #20 caps 06/08/23 Allergies Allergy/AdvReac Type Severity Reaction Status Date / Time No Known Allergies Allergy Mild NOT Verified 06/08/23 13:47 [No Known Allergies*] APPLICABLE Review of Systems Review of Systems: Constitutional : No Weight loss, + Fever, + Chills, + Fatigue, + Malaise ENT/Mouth : No sore throat, No Rhinorrhea Eyes: No Eye Pain, No Swelling, No Redness Cardiovascular : + Chest Pain, No SOB, No Dyspnea on Exertion, No Orthopnea, No Edema, No Palpitations Respiratory : + Cough, No Sputum, No Wheezing Gastrointestinal : No Nausea, No Vomiting, No Diarrhea, No Constipation, No abdominal Pain, No Hematochezia, No Melena Genitourinary : No Dysuria, No Urinary Frequency, No Hematuria, Musculoskeletal : No joint pain, No Myalgias, No Joint Swelling Skin : No Skin Lesions, No rash Neuro : + Weakness, No Numbness, No Dizziness, No Headache Psych : No Anxiety/Panic, No Depression All other systems reviewed and are negative Yes all other systems are reviewed and are negative [facility] Past Medical History Attestation statement: The following information was validated with the patient. Source: old records reviewed and nursing notes reviewed Medical History Anemia Annual physical exam Anxiety Constipation Hyperglycemia Hyperlipidemia Lung nodule seen on imaging study Sciatica Sigmoid thickening Vitamin D deficiency Surgical History History of appendectomy Family History Family History Father HTN (hypertension) Mother HTN (hypertension) Brother No problems noted. Brother No problems noted. Son No problems noted. Son No problems noted. Daughter No problems noted. Social History Social History Housing: Apartment Alcohol intake: never Patient Tobacco Use Status: Never used Tobacco e-Cigarette/Vaping Use: Never Used Advance Directives: No Advance Directives Information Provided: No Current occupational status: unemployed Gender identity: Female Cognitive needs: No Hearing needs: No Vision needs: Yes Physical Exam ED Vital Signs: Vital Signs - 24 hr 06/08/23 13:44 Temperature 97.9 F Pulse Rate 89 Respiratory Rate 16 Blood Pressure 144/80 H Pulse Oximetry 96 Oxygen Delivery Method Room Air BMI result Body Mass Index 30.5 vss vitals taken after exertion. Appearance: Alert.? Oriented X3.? No acute distress.? Head: Normocephalic, atraumatic, no step-offs or deformities Eyes: Pupils equal, round and reactive to light.? CVS: Normal heart rate and rhythm.? Pulses normal.? Respiratory: No respiratory distress.? Breath sounds normal.? Abdomen: Soft and nontender.? Skin: Skin warm and dry.? Normal skin color.? Normal skin turgor.? Extremities: No lower extremity edema.? No calf ttp. 5/5 strength to bilateral upper and lower extremities Neuro: Oriented X 3.? No motor deficit.? No sensory deficit. CN 2-12 intact Course Reevaluation(s) Reevaluation #1: Patient will be dc w/ benzonate and albuterol. Chest x-ray and EKG pending. Time: 13:55 Reevaluation #2: Chest x-ray in my opinion without any acute findings waiting for final read. Patient in a balderrama chair, complaining that it is uncomfortable we explained her she will be discharged home of any abnormal findings on x-ray will call. Patient stable at time of discharge, appears to be in no acute distress complaining of body aches and pains likely secondary to COVID-19. Educated patient on diagnosis and treatment plan, answered all question, patient verbalizes understanding. At this time patient will be discharged home, advised to return with new or worsening symptoms. Educated on worrisome signs and symptoms and when to return. At this time I feel comfortable discharge home. Time: 14:51 Medical Decision Making Medical Decision Making MDM Narrative: 42 year-old female presents with COVID like symptoms family at home with similar sx. ? Physical exam benign. ? This is likely COVID-19 versus viral illness.? Other differentials include bronchitis.? Unlikely pneumonia, PE (PERC negative), ACS Breath sounds present unlikley pneumothorax.? Patient appears comfortable no acute distress. Vitals 96% even after ambulation into triage Plan- ekg, cxr Differential Diagnosis Differential Diagnoses: The differential diagnosis associated with the presentation includes This is likely COVID-19 versus viral illness.? Other differentials include bronchitis.? Unlikely pneumonia, PE (PERC negative), ACS. Breath sounds present unlikley pneumothorax. ? Patient appears comfortable no acute distress. Admission/Observation Consideration of admission/observation: Escalation of care including admission/observation considered unlikely Independent Interpretation I performed an independent interpretation of an: EKG ( Ventricular rate of 80, [place] normal, QRS normal, QT/ QTC normal. EKG with normal sinus rhythm, no ST elevations or inversions concerning for acute ischemia.) and Plain X-Ray Radiology Impression Discussion of test interpretation with radiology: I have reviewed the r adiologist's reading. Core Measures AMI core measures followed: Yes Measure exclusions: not indicated Critical Care Time Critical Care Time Critical Care Time: No Discharge Plan Discharge Clinical Impression: COVID-19 Patient Disposition: Home, Self-Care Instructions: COVID-19 (Coronavirus Disease 2019) (ED) Additional Instructions: Take your medications as prescribed. If you were prescribed antibiotics today, it is important that you take your medication to their entirety, do not skip any doses, do not finish them early. Today you tested positive for COVID-19. Take Ibuprofen or Tylenol as needed for fevers or body aches. Quarantine for 5 days and ensure you wear a mask. After 5 days you should wear a mask for 5 days after that. Practice social distancing and good hand hygiene. Drink plenty of fluids. Follow-up with your primary care provider this week. Return to the emergency department with new or worsening symptoms. In case of emergency call 911 You can purchase a pulse oximeter from your local pharmacy or grocery store, and monitor your oxygen saturation if it goes below 94% you should return to the emergency department for further evaluation. Prescriptions: New benzonatate 100 mg capsule 100 mg PO BID PRN (Reason: cough) Qty: 20 0RF albuterol sulfate 90 mcg/actuation aerosol powdr breath activated 2 inh inhalation Q4-6H PRN (Reason: shortness of breath or wheezing) Qty: 1 0RF No Action (DME) blood-glucose meter [FreeStyle [place] Lite] Kit See Rx Instructions .Route Qty: 1 0RF Rx Instructions: As directed to test blood sugar (DME) lancets [FreeStyle Lancets] 28 gauge misc See Rx Instructions .Route Qty: 100 3RF Rx Instructions: test blood sugar once a day (DME) FreeStyle Lite Strips Strip See Rx Instructions .Route Qty: 100 3RF Rx Instructions: test blood sugar once a day folic acid 1 mg tablet 1 mg PO DAILY Qty: 30 3RF cholecalciferol (vitamin D3) 1,250 mcg (50,000 unit) capsule 1,250 mcg PO 2XW 90 Days Qty: 26 3RF prednisone 5 mg/5 mL solution 20 mg PO DAILY 5 Days Qty: 100 0RF lidocaine HCl [Lidocaine Viscous] 2 % solution 10 ml mucous membrane TID PRN (Reason: pain) 5 Days Qty: 150 0RF sennosides [Natural Senna Laxative] 8.6 mg tablet 8.6 mg PO BEDTIME PRN (Reason: constipation) metformin 850 mg tablet 850 mg PO BID Qty: 180 2RF (DME) FreeStyle Tad 2 Sensor Kit See Rx Instructions .Route Qty: 2 3RF Rx Instructions: As directed codeine-guaifenesin 10-100 mg/5 mL liquid 5 ml PO Q6H PRN (Reason: allergy symptoms) Qty: 120 0RF Referrals: Liza Mosquera MD [Primary Care Provider] - 2 days Stand Alone Forms: Work/School Release Interventions: ED Discharge Assessment Last Done: 06/08/23 14:49 Discharge Date/Time: 06/08/23 14:49
== END 2023-06-08 14:49 | disposition home or self-care (01) ==
PROVIDERS: Emergency Provider Emergency Medicine Emergency Medical Services; PCP Internal Medicine
DX: U07.1 COVID-19 (principal); R06.02 Shortness of breath
CPT/HCPCS: 71045; 93005; 99283

== ENCOUNTER → 2023-06-08 13:49 | Outpatient (BNV) | payer OTHER, SELFPAY | PROVIDERS: Emergency Provider Emergency Medicine Emergency Medical Services; PCP Internal Medicine; Visit Provider Internal Medicine Cardiovascular Disease | DX: R94.31 Abnormal electrocardiogram [ECG] [EKG] (principal); R06.02 Shortness of breath | CPT/HCPCS: 93010 ==

== ENCOUNTER 2023-07-22 15:09 | Emergency (ER) | payer OTHER, SELFPAY ==
--- NOTE | ~2023-07-22 | CT_ITS ---
EXAMINATION: CT abdomen pelvis wo IV con CLINICAL INFORMATION: Reason for Exam left flank pain without contrast COMPARISON: Prior CT May 2022 TECHNIQUE: Multidetector volumetric imaging was performed from the superior aspect of the liver through the pubic symphysis , noncontrasted study Sagittal and coronal reformatted images were obtained on the technologist's workstation. This CT examination was performed using dose optimization techniques as appropriate, variously including the following: *Automated exposure control *Adjustment of mA and/or kV according to patient size (this includes techniques or standardized protocols for targeted exams where dose is matched to indication/reason for exam; i.e. extremities or head) *Use of iterative reconstruction technique DLP: 745 mGy-cm FINDINGS: LOWER THORAX: Included lung bases are clear. HEPATOBILIARY: No focal hepatic lesions. No biliary ductal dilatation. GALLBLADDER: Gallbladder unremarkable. SPLEEN: Spleen is normal in size. PANCREAS: No focal mass or ductal dilatation. STOMACH AND GASTROINTESTINAL TRACT: Stomach is grossly unremarkable. There is no bowel distention or thickening. Appendix not visualized, there are suture lines in the cecum, probably prior appendectomy. Mild diverticulosis of the sigmoid colon without CT evidence of diverticulitis. ADRENALS: No adrenal nodules. KIDNEYS/URETERS: No hydronephrosis, stones or solid mass lesions. URINARY BLADDER: Partially decompressed. PELVIC VISCERA: Uterus unremarkable. Rectum and perirectal fat are clear. PERITONEUM: No free air or fluid. LYMPH NODES: No lymphadenopathy. VASCULAR:Abdominal aorta normal in size, no aneurysm found. BONES, ABDOMINAL WALL AND SOFT TISSUES: Age-appropriate changes of the spine and skeletal system, no destructive osteolytic or osteosclerotic bone lesion found CT/CT abdomen pelvis wo IV con IMPRESSION: * No CT evidence of acute intra-abdominal process to explain patient's pain symptoms. No kidney stones or hydronephrosis. * Diverticulosis without evidence of acute diverticulitis. * Appendix not visualized, there are suture lines in the cecum, probably prior appendectomy.
[2023-07-22 15:23] VITALS: BP 148/82; PULSE 75; RESP 18; TEMP 36.6; O2SAT 100; BMI 33.6
--- NOTE | 2023-07-22 15:25 | ED.GENADULT ---
HPI - General Adult General Chief complaint: Abdominal Pain Stated complaint: low back pain, no injury Time Seen by Provider: 07/22/23 16:02 Source: patient, RN notes reviewed and old records reviewed Mode of arrival: ambulatory Limitations: no limitations History of Present Illness HPI narrative: 42-year-old female with past medical history significant for type 2 diabetes, hyperlipidemia, anemia presents for evaluation of left flank pain. Patient reports that her symptoms started this morning and her mild. She had left flank pain that did not radiate when she woke up. The pain now radiates to her left lower abdomen. The pain is waxing and waning in intensity Denies any blood in the urine or difficulty urinating. She has some associated nausea without vomiting. Patient is status post appendectomy but no other abdominal surgeries She does have a history of kidney stone Related Data Home Medications Medication Instructions Recorded Confirmed sennosides 8.6 mg tablet (Natural 8.6 mg PO BEDTIME PRN constipation 01/04/23 01/04/23 Senna Laxative) Previous Rx's Medication Instructions Recorded FreeStyle [place] Lite #1 ea 06/16/22 (blood-glucose meter) FreeStyle Lite Strips (blood sugar #100 ea 06/16/22 diagnostic) lancets 28 gauge (FreeStyle #100 ea 06/16/22 Lancets) flash glucose sensor (FreeStyle #2 ea 01/04/23 Tad 2 Sensor kit) metformin 850 mg tablet 850 mg PO BID #180 tabs 01/04/23 lidocaine HCl 2 % mucosal solution 10 ml mucous membrane TID PRN pain 01/17/23 (Lidocaine Viscous) 5 days #150 mL prednisone 5 mg/5 mL oral solution 20 mg (20 mL) PO DAILY 5 days #100 01/17/23 mL folic acid 1 mg tablet 1 mg PO DAILY #30 tabs 01/18/23 cholecalciferol (vitamin D3) 1,250 1,250 mcg PO 2XW 3 months #26 caps 03/28/23 mcg (50,000 unit) capsule codeine 10 mg-guaifenesin 100 mg/5 5 ml PO Q6H PRN allergy symptoms 06/06/23 mL oral liquid #120 mL albuterol sulfate 90 mcg/actuation 2 inh inhalation Q4-6H PRN 06/08/23 breath activated powder inhaler shortness of breath or wheezing #1 ea benzonatate 100 mg capsule 100 mg PO BID PRN cough #20 caps 06/08/23 methocarbamol 500 mg tablet 500 mg PO TID PRN muscle spasm #12 07/22/23 tabs ondansetron 4 mg disintegrating 4 mg PO Q8H PRN nausea and 07/22/23 tablet vomiting #20 tabs tramadol 50 mg tablet 50 mg PO TID PRN severe pain 07/22/23 (scale score 7-10) #12 tabs Allergies Allergy/AdvReac Type Severity Reaction Status Date / Time No Known Allergies Allergy Mild NOT Verified 07/22/23 15:22 [No Known Allergies*] APPLICABLE Review of Systems Constitutional: Constitutional: Denies chills and Denies fever(s) Eyes: Eyes: Denies blurry vision ENT: Denies sore throat Cardiovascular: Cardiovascular: Denies chest pain and Denies dyspnea Respiratory: Respiratory: Denies dyspnea Gastrointestinal: Gastrointestinal: Reports abdominal pain, Reports nausea and Denies vomiting Genitourinary: Genitourinary: Denies difficulty voiding Musculoskeletal: Musculoskeletal: Reports back pain Integumentary/Breasts: Skin/Breast: Denies rash Psychiatric: Psychiatric: Denies panic attacks FOR[facility], [facility] Past Medical History Medical History Anemia Annual physical exam Anxiety Constipation Hyperglycemia Hyperlipidemia Lung nodule seen on imaging study Sciatica Sigmoid thickening Vitamin D deficiency Surgical History History of appendectomy Family History Family History Father HTN (hypertension) Mother HTN (hypertension) Brother No problems noted. Brother No problems noted. Son No problems noted. Son No problems noted. Daughter No problems noted. Social History Social History Housing: Apartment Alcohol intake: never Patient Tobacco Use Status: Never used Tobacco Smoked in Last 30 Days: No e-Cigarette/Vaping Use: Never Used Use of substances other than those prescribed or required for medical reasons: No Advance Directives: No Advance Directives Information Provided: No Current occupational status: unemployed Gender identity: Female Cognitive needs: No Hearing needs: No Vision needs: Yes Physical Exam ED Vital Signs: Vital Signs - 24 hr 07/22/23 15:23 Temperature 97.8 F Pulse Rate 75 Respiratory Rate 18 Blood Pressure 148/82 H Pulse Oximetry 100 Oxygen Delivery Method Room Air BMI result Body Mass Index 33.6 Const General: healthy appearing, alert, awake and acute distress mild (Nontoxic-appearing, the patient appears quite uncomfortable); No comfortable Nutritional Appearance: well nourished Orientation/consciousness: patient oriented x3 HENMT Head: Yes normocephalic and Yes atraumatic Eyes Eyelids: Yes eyelids normal Conjunctivae: conjunctivae normal Sclerae: sclerae normal Corneas: corneas normal Pupils: Equal, round and reactive pupils present EOM: EOMs intact bilaterally Neck Neck: Yes full ROM Resp Effort & Inspection: normal respiratory effort, able to speak in complete sentences and not labored GI Inspection: No distended Palpation (GI): Soft to palpation, not firm, nontender, no guarding and not rigid Auscultation: normoactive bowel sounds Back/Spine/Pelvis Other: Patient has left lumbar paraspinal muscle tenderness. Positive CVA tenderness on left. Skin General skin exam: elasticity normal Neuro General: patient oriented x3 Cranial nerves: Yes Equal, round and reactive pupils present and Yes Bilaterally intact EOM present Cognition (Neuro): normal cognition Extrem Other: Moving all extremities well without any obvious deformities Course Course Course Narrative: RME: 42 yold female presents to the ED for left flank pain and nuasea. Labs ordered. HPI to be done in [facility]> Reevaluation(s) Reevaluation #1: Patient's pain has greatly improved but is still present. Patient's pain is most likely musculoskeletal in origin after CT scan did not show any acute findings, labs and urine did not explain her discomfort either. We will discharge the patient with tramadol and methocarbamol. Her daughter will pick her up Time: 18:17 Medications Administered Discontinued Medications Generic Name Dose Route Start Last Admin Trade Name Freq PRN Reason Stop Dose Admin Sodium Chloride 1,000 mls @ 999 mls/hr 07/22/23 16:30 07/22/23 16:48 Ns IV 07/22/23 17:30 999 mls/hr .Q1H1M ELIJAH Administration Ketorolac Tromethamine 30 mg 07/22/23 16:16 07/22/23 16:22 Ketorolac Tromethamine 30 Mg/Ml Vial IVPUSH 07/22/23 16:17 30 mg ONCE ONE Administration Ondansetron HCl 4 mg 07/22/23 16:16 07/22/23 16:21 Ondansetron Hcl 4 Mg/2 Ml Vial IVPUSH 07/22/23 16:17 4 mg ONCE ONE Administration Medical Decision Making Medical Decision Making [facility] Narrative: 42-year-old female presents for evaluation of left flank pain that was atraumatic. She reports the pain started mild this morning but is now much more severe in intensity. The pain waxes and wanes. This is consistent with obstructive uropathy. She has a history of same. Plan for labs, UA and a CT scan of the abdomen pelvis. Patient medicated with Toradol. She also has a history of pyelonephritis. Less likely diverticulitis as the patient has no abdominal tenderness but the patient does have a history this and this is still possible. Vital signs are stable, she is not septic Differential Diagnosis Differential Diagnoses: The differential diagnosis associated with the presentation includes Obstructive uropathy Muscle strain Contusion Diverticulitis Pyelonephritis Radiculopathy Lab Data [facility] Lab Attestation statement: I reviewed the patient's lab results. No leukocytosis, patient has a moderate anemia with a hemoglobin of 8.9 hematocrit 31.8. This is consistent with her recent baseline. No electrolyte abnormalities, normal renal function. Mild transaminitis of unclear etiology, but the patient has no right-sided pain or tenderness 07/22/23 15:39 07/22/23 15:39 Labs: Lab Results 07/22/23 07/22/23 Range/Units 15:39 15:49 WBC 8.2 (4.8-10.8) X10*3/uL RBC 5.25 (4.20-5.50) X10*6/uL Hgb 8.9 L (12.0-16.0) g/dl Hct 31.8 L (37.0-47.0) % MCV 60.6 L (80.0-98.0) fL MCH 17.0 L (27.0-33.0) pg MCHC 28.0 L (31.0-35.0) g/dl RDW 19.8 H (11.0-16.0) % Plt Count 465 H (160-400) X10*3/uL MPV 9.5 (9.4-12.3) fL Immature Gran % (Auto) 0.1 (0.0-0.4) % Neut % (Auto) 65.1 (45-73) % Lymph % (Auto) 27.0 (20-40) % [place] % (Auto) 6.6 (2-11) % Eos % (Auto) 0.6 (0-4) % Baso % (Auto) 0.6 (0-2) % Lymph # (Auto) 2.2 (1.2-4.9) X10*3/uL [place] # (Auto) 0.5 (0.1-1.2) X10*3/uL Eos # (Auto) 0.1 (0.0-0.4) X10*3/uL Baso # (Auto) 0.1 (0.0-0.2) X10*3/uL Abs Immat Gran (auto) 0.01 (0.00-0.03) X10*3/uL Absolute Neuts (auto) 5.3 (2.0-8.3) x10*3/uL Absolute Nucleated RBC 0.000 (0.0-0.012) X10*3/uL Nucleated RBC % (auto) 0.0 (0.0-0.2) /100WBC Sodium 140 (135-145) mmol/L Potassium 3.7 (3.3-5.1) mmol/L Chloride 105 (96-108) mmol/L Carbon Dioxide 22 (22-29) mmol/L Anion Gap 17 (12-20) BUN 7 L (9-16) mg/dL Creatinine 0.71 (0.5-1.4) mg/dL Estim Creat Clear Calc 106.3 Estimated GFR > 60 Random Glucose 76 (60-115) mg/dL Calcium 9.6 D (8.4-10.2) mg/dL Total Bilirubin 0.4 (0.0-1.0) mg/dL AST 41 H (5-31) U/L ALT 40 H (0-31) U/L Alkaline Phosphatase 97 (39-117) U/L Total Protein 7.9 (6.5-8.0) g/dL Albumin 4.1 (3.5-5.0) g/dL Beta HCG, Quant < 2 mIU/mL Urine Color Yellow Urine Appearance Clear Urine pH 8.5 (5.0-9.0) Ur Specific [place] 1.020 (1.005-1.025) Urine Protein Negative (Neg-Trace) mg/dL Urine Glucose (UA) Negative (Negative) mg/dL Urine Ketones Negative (Negative) mg/dL Urine Blood Negative (Negative) Urine Nitrite Negative (Negative) Ur Leukocyte Esterase Negative (Negative) Urine Test NEGATIVE (NEGATIVE) Independent Interpretation I performed an independent interpretation of an: CT Scan (Agree with Radiology interpretation, no obvious cause of the patient's discomfort identified) Radiology Impression Discussion of test interpretation with radiology: I have reviewed the radiologist's reading. Radiologist Impression: No CT evidence of acute intra-abdominal process to explain patient's pain symptoms. No kidney stones or hydronephrosis Discharge Plan Discharge Clinical Impression: Acute left flank pain Patient Disposition: Home, Self-Care Instructions: Muscle Strain (ED) Additional Instructions: Your workup in the emergency department today was reassuring. This includes your blood work, urine sample and CT scan Your pain is most likely related to muscle spasms You may use ibuprofen and and or Tylenol for your pain Use tramadol for more severe breakthrough pain Use methocarbamol as needed for muscle spasms These medications may make you sleepy, did not drink alcohol or drive after taking them You may use Zofran for nausea and vomiting Follow-up with your primary doctor Return for new or worsening symptoms Prescriptions: New tramadol 50 mg tablet 50 mg PO TID PRN (Reason: severe pain (scale score 7-10)) Qty: 12 0RF methocarbamol 500 mg tablet 500 mg PO TID PRN (Reason: muscle spasm) Qty: 12 0RF ondansetron 4 mg tablet,disintegrating 4 mg PO Q8H PRN (Reason: nausea and vomiting) Qty: 20 0RF No Action (DME) blood-glucose meter [FreeStyle [place] Lite] Kit See Rx Instructions .Route Qty: 1 0RF Rx Instructions: As directed to test blood sugar (DME) lancets [FreeStyle Lancets] 28 gauge misc See Rx Instructions .Route Qty: 100 3RF Rx Instructions: test blood sugar once a day (DME) FreeStyle Lite Strips Strip See Rx Instructions .Route Qty: 100 3RF Rx Instructions: test blood sugar once a day folic acid 1 mg tablet 1 mg PO DAILY Qty: 30 3RF cholecalciferol (vitamin D3) 1,250 mcg (50,000 unit) capsule 1,250 mcg PO 2XW 90 Days Qty: 26 3RF benzonatate 100 mg capsule 100 mg PO BID PRN (Reason: cough) Qty: 20 0RF albuterol sulfate 90 mcg/actuation aerosol powdr breath activated 2 inh inhalation Q4-6H PRN (Reason: shortness of breath or wheezing) Qty: 1 0RF prednisone 5 mg/5 mL solution 20 mg PO DAILY 5 Days Qty: 100 0RF lidocaine HCl [Lidocaine Viscous] 2 % solution 10 ml mucous membrane TID PRN (Reason: pain) 5 Days Qty: 150 0RF sennosides [Natural Senna Laxative] 8.6 mg tablet 8.6 mg PO BEDTIME PRN (Reason: constipation) metformin 850 mg tablet 850 mg PO BID Qty: 180 2RF (DME) FreeStyle Tad 2 Sensor Kit See Rx Instructions .Route Qty: 2 3RF Rx Instructions: As directed codeine-guaifenesin 10-100 mg/5 mL liquid 5 ml PO Q6H PRN (Reason: allergy symptoms) Qty: 120 0RF
[2023-07-22 15:42] LABS: MANUAL DIFF FLAG NO
[2023-07-22 15:46] LABS: Basophils Absolute Auto 0.1 X10*3/uL (0.0-0.2); Basophils Percent Auto 0.6 % (0-2); Eosinophils Absolute Auto 0.1 X10*3/uL (0.0-0.4); Eosinophils Percent Auto 0.6 % (0-4); Hematocrit 31.8 % (37.0-47.0); Hemoglobin 8.9 g/dl (12.0-16.0); Imm Gran Abs Auto 0.01 X10*3/uL (0.00-0.03); Imm Gran Pct Auto 0.1 % (0.0-0.4); Lymphocytes Absolute Auto 2.2 X10*3/uL (1.2-4.9); Mean Platelet Volume 9.5 fL (9.4-12.3); Monocytes Absolute Auto 0.5 X10*3/uL (0.1-1.2); Monocytes Percent Auto 6.6 % (2-11); Neutrophils Absolute Auto 5.3 x10*3/uL (2.0-8.3); Neutrophils Percent Auto 65.1 % (45-73); Platelet Count 465 X10*3/uL (160-400); Red Blood Count 5.25 X10*6/uL (4.20-5.50); Red Cell Distribution Width 19.8 % (11.0-16.0); White Blood Count 8.2 X10*3/uL (4.8-10.8)
[2023-07-22 15:47] LABS: Mean Corpuscular Volume 60.6 fL (80.0-98.0)
--- NOTE | 2023-07-22 15:47 | PC.NURSE ---
Patient report 8/10 left sided back pain that extends to her left leg. Patient states the pain started this morning but has gotten worse as the day has gone on. Reports it feels like someone is hitting her in the back. Denies chest pain or sob
[2023-07-22 16:03] LABS: Appearance Urine Clear; Color Urine Yellow; Glucose Urine UA Negative (Negative); Leukocyte Esterase Urine Negative (Negative); Nitrite Urine Negative (Negative); PH 8.5 (5.0-9.0); Urine Blood Negative (Negative); Urine Ketones Negative (Negative); Urine Protein Negative (Neg-Trace)
[2023-07-22 16:04] LABS: UPreg QC Valid YES; Urine Pregnancy NEGATIVE (NEGATIVE)
[2023-07-22 16:07] LABS: Alanine Aminotransferase 40 U/L (0-31); Albumin Level 4.1 g/dL (3.5-5.0); Alkaline Phosphatase 97 U/L (39-117); Anion Gap 17 (12-20); Aspartate Amino Transferase 41 U/L (5-31); Bilirubin Total 0.4 mg/dL (0.0-1.0); Blood Urea Nitrogen 7 mg/dL (9-16); Calcium 9.6 mg/dL (8.4-10.2); Carbon Dioxide 22 mmol/L (22-29); Chloride 105 mmol/L (96-108); Creatinine Clr Calc Pharmacy 106.3; Estimated Glomerular Filt Rate > 60; Glucose Random 76 mg/dL (60-115); Potassium 3.7 mmol/L (3.3-5.1); Sodium 140 mmol/L (135-145); Total Protein 7.9 g/dL (6.5-8.0)
[2023-07-22 16:17] LABS: HCG Quantitative < 2 mIU/mL
[2023-07-22] MEDS: ondansetron HCL 4 MG/2 ML VIAL IVPUSH ×2 (16:21→18:32)
[2023-07-22] MEDS: Ketorolac Tromethamine 30 MG/ML VIAL IVPUSH (16:22)
[2023-07-22] MEDS: 0.9 % Sodium Chloride 1,000 ML 999 ML IV (16:48)
[2023-07-22] MEDS: traMADoL HCL 50 MG TABLET PO (18:32)
== END 2023-07-22 18:34 | disposition home or self-care (01) ==
PROVIDERS: Physician Assistant; Emergency Provider Emergency Medicine Emergency Medical Services; PCP Internal Medicine
DX: R10.32 Left lower quadrant pain (principal); E11.9 Type 2 diabetes mellitus without complications; Z79.84 Long term (current) use of oral hypoglycemic drugs; R33.9 Retention of urine, unspecified; R11.2 Nausea with vomiting, unspecified; Z87.442 Personal history of urinary calculi; Z79.899 Other long term (current) drug therapy
CPT/HCPCS: 36415; 74176; 80053; 81003; 81025; 84702; 85025; 96361; 96374; 96375; 96376; 99284; J1885; J2405

== ENCOUNTER 2023-10-16 13:57 | Outpatient (REF) | payer OTHER, SELFPAY ==
[2023-10-18 14:36] LABS: Estimated Average Glucose 180 mg/dL; Hemoglobin A1c % 7.9 % (<6.0)
== END 2023-10-16 13:58 | disposition home or self-care (01) ==
LOC: HO.LNP 13:57
PROVIDERS: Visit Provider Internal Medicine
DX: E11.9 Type 2 diabetes mellitus without complications (principal)
CPT/HCPCS: 83036

== ENCOUNTER 2023-10-16 15:24 | Emergency (ER) | payer OTHER, SELFPAY ==
[2023-10-16 15:33] VITALS: BP 161/90; PULSE 90; RESP 20; TEMP 36.8; O2SAT 100; BMI 34.2
--- NOTE | 2023-10-16 15:33 | ED.GENADULT ---
HPI - General Adult General Chief complaint: Abdominal Pain Stated complaint: left side pain Related Data Previous Rx's ?Medication ?Instructions ?Recorded FreeStyle [place] Lite #1 ea 06/16/22 (blood-glucose meter) FreeStyle Lite Strips (blood sugar #100 ea 06/16/22 diagnostic) lancets 28 gauge (FreeStyle #100 ea 06/16/22 Lancets) flash glucose sensor (FreeStyle #2 ea 01/04/23 Tad 2 Sensor kit) folic acid 1 mg tablet 1 mg PO DAILY #30 tabs 01/18/23 cholecalciferol (vitamin D3) 1,250 1,250 mcg PO 2XW 3 months #26 caps 03/28/23 mcg (50,000 unit) capsule metformin 850 mg tablet 850 mg PO BID #180 tabs 10/19/23 empagliflozin 10 mg tablet 10 mg PO DAILY #90 tabs 11/28/23 (Jardiance) metformin 850 mg tablet 850 mg PO BID #180 tabs 11/28/23 hydrocortisone 1 %-pramoxine 1 % 1 appl RI DAILY PRN hemorrhoids 01/21/24 rectal foam (Proctofoam HC) #10 grams Allergies Allergy/AdvReac Type Severity Reaction Status Date / Time No Known Allergies Allergy Mild NOT Verified 11/28/23 11:55 [No Known Allergies*] APPLICABLE [facility] Past Medical History Medical History Vitamin D deficiency Sigmoid thickening Constipation Anemia Hyperglycemia Hyperlipidemia Sciatica Anxiety Lung nodule seen on imaging study Annual physical exam Surgical History History of appendectomy Family History Family History Father HTN (hypertension) Mother HTN (hypertension) Brother No problems noted. Brother No problems noted. Son No problems noted. Son No problems noted. Daughter No problems noted. Social History Social History Housing: Apartment Alcohol intake: never Patient Tobacco Use Status: Never used Tobacco e-Cigarette/Vaping Use: Never Used Advance Directives: No Advance Directives Information Provided: No Current occupational status: unemployed Gender identity: Female Cognitive needs: No Hearing needs: No Vision needs: Yes Physical Exam ED Vital Signs: BMI result Body Mass Index 34.2 Course Course Course Narrative: RME- 43 year old female presents for evaluation of left flank pain and burning with urination. Plan for labs and a UA Medical Decision Making Lab Data 10/16/23 16:17 10/16/23 16:17 Labs: Lab Results 10/16/23 Range/Units 16:17 WBC 8.2 (4.8-10.8) X10*3/uL RBC 4.71 (4.20-5.50) X10*6/uL Hgb 8.3 L (12.0-16.0) g/dl Hct 29.2 L (37.0-47.0) % MCV 62.0 L (80.0-98.0) fL MCH 17.6 L (27.0-33.0) pg MCHC 28.4 L (31.0-35.0) g/dl RDW 19.4 H (11.0-16.0) % Plt Count 420 H (160-400) X10*3/uL MPV 10.2 (9.4-12.3) fL Immature Gran % (Auto) 0.5 H (0.0-0.4) % Neut % (Auto) 71.5 (45-73) % Lymph % (Auto) 22.3 (20-40) % [place] % (Auto) 4.6 (2-11) % Eos % (Auto) 0.6 (0-4) % Baso % (Auto) 0.5 (0-2) % Lymph # (Auto) 1.8 (1.2-4.9) X10*3/uL [place] # (Auto) 0.4 (0.1-1.2) X10*3/uL Eos # (Auto) 0.1 (0.0-0.4) X10*3/uL Baso # (Auto) 0.0 (0.0-0.2) X10*3/uL Abs Immat Gran (auto) 0.04 H (0.00-0.03) X10*3/uL Absolute Neuts (auto) 5.9 (2.0-8.3) x10*3/uL Absolute Nucleated RBC 0.000 (0.0-0.012) X10*3/uL Nucleated RBC % (auto) 0.0 (0.0-0.2) /100WBC Sodium 139 (135-145) mmol/L Potassium 3.9 (3.3-5.1) mmol/L Chloride 104 (96-108) mmol/L Carbon Dioxide 26 (22-29) mmol/L Anion Gap 13 (12-20) BUN 10 (9-16) mg/dL Creatinine 0.78 (0.5-1.4) mg/dL Estim Creat Clear Calc 96.5 Estimated GFR > 60 Random Glucose 280 H (60-115) mg/dL Estimat Average Glucose Cancelled Hemoglobin A1c % Cancelled Calcium 9.3 (8.4-10.2) mg/dL Urine Color Yellow Urine Appearance Clear Urine pH 5.5 (5.0-9.0) Ur Specific [place] 1.025 (1.005-1.025) Urine Protein Negative (Neg-Trace) mg/dL Urine Glucose (UA) Negative (Negative) mg/dL Urine Ketones Negative (Negative) mg/dL Urine Blood Negative (Negative) Urine Nitrite Negative (Negative) Ur Leukocyte Esterase Negative (Negative) Urine RBC 0-2 (0-2) /HPF Urine WBC 0-5 (0-5) /HPF Ur Squamous Epith Cells 0-2 (0-2) /HPF Urine Bacteria None Seen (None Seen) Hyaline Casts 0-2 (0-2) /LPF Urine Test NEGATIVE (NEGATIVE) Discharge Plan Discharge Clinical Impression: Acute left flank pain Patient Disposition: Elopement Prescriptions: No Action (DME) blood-glucose meter [FreeStyle [place] Lite] Kit See Rx Instructions .Route Qty: 1 0RF Rx Instructions: As directed to test blood sugar (DME) lancets [FreeStyle Lancets] 28 gauge misc See Rx Instructions .Route Qty: 100 3RF Rx Instructions: test blood sugar once a day (DME) FreeStyle Lite Strips Strip See Rx Instructions .Route Qty: 100 3RF Rx Instructions: test blood sugar once a day folic acid 1 mg tablet 1 mg PO DAILY Qty: 30 3RF cholecalciferol (vitamin D3) 1,250 mcg (50,000 unit) capsule 1,250 mcg PO 2XW 90 Days Qty: 26 3RF metformin 850 mg tablet 850 mg PO BID Qty: 180 0RF Proctofoam HC 1-1 % foam 1 appl RI DAILY PRN (Reason: hemorrhoids) Qty: 10 0RF metformin 850 mg tablet 850 mg PO BID Qty: 180 0RF Jardiance 10 mg tablet 10 mg PO DAILY Qty: 90 0RF (DME) FreeStyle Tad 2 Sensor Kit See Rx Instructions .Route Qty: 2 3RF Rx Instructions: As directed Discharge Date/Time: 10/16/23 23:59 Print Language: Dominican
[2023-10-16 16:27] LABS: MANUAL DIFF FLAG NO
[2023-10-16 16:29] LABS: Basophils Percent Auto 0.5 % (0-2); Eosinophils Absolute Auto 0.1 X10*3/uL (0.0-0.4); Eosinophils Percent Auto 0.6 % (0-4); Hematocrit 29.2 % (37.0-47.0); Hemoglobin 8.3 g/dl (12.0-16.0); Imm Gran Abs Auto 0.04 X10*3/uL (0.00-0.03); Imm Gran Pct Auto 0.5 % (0.0-0.4); Lymphocytes Absolute Auto 1.8 X10*3/uL (1.2-4.9); Lymphocytes Percent Auto 22.3 % (20-40); Mean Corpuscular HGB Conc 28.4 g/dl (31.0-35.0); Mean Corpuscular Hemoglobin 17.6 pg (27.0-33.0); Mean Platelet Volume 10.2 fL (9.4-12.3); Monocytes Absolute Auto 0.4 X10*3/uL (0.1-1.2); Monocytes Percent Auto 4.6 % (2-11); Neutrophils Absolute Auto 5.9 x10*3/uL (2.0-8.3); Neutrophils Percent Auto 71.5 % (45-73); Platelet Count 420 X10*3/uL (160-400); Red Blood Count 4.71 X10*6/uL (4.20-5.50); Red Cell Distribution Width 19.4 % (11.0-16.0); White Blood Count 8.2 X10*3/uL (4.8-10.8)
[2023-10-16 16:31] LABS: Appearance Urine Clear; Color Urine Yellow; Glucose Urine UA Negative (Negative); Leukocyte Esterase Urine Negative (Negative); Nitrite Urine Negative (Negative); PH 5.5 (5.0-9.0); Specific Gravity - Urine 1.025 (1.005-1.025); Urine Blood Negative (Negative); Urine Ketones Negative (Negative); Urine Protein Negative (Neg-Trace)
[2023-10-16 16:34] LABS: UPreg QC Valid YES; Urine Pregnancy NEGATIVE (NEGATIVE)
[2023-10-16 16:36] LABS: Bacteria Urine None Seen (None Seen); Hyaline Casts Urine 0-2 /LPF (0-2); RBC Urine 0-2 /HPF (0-2); Squamous Epithelial Cell Urine 0-2 /HPF (0-2); WBC Urine 0-5 /HPF (0-5)
[2023-10-16 16:42] LABS: Anion Gap 13 (12-20); Blood Urea Nitrogen 10 mg/dL (9-16); Calcium 9.3 mg/dL (8.4-10.2); Carbon Dioxide 26 mmol/L (22-29); Chloride 104 mmol/L (96-108); Creatinine Clr Calc Pharmacy 96.5; Estimated Glomerular Filt Rate > 60; Glucose Random 280 mg/dL (60-115); Potassium 3.9 mmol/L (3.3-5.1); Sodium 139 mmol/L (135-145)
--- NOTE | 2023-10-16 23:58 | PC.NURSE ---
Pt not visualized in [facility] after being called multiple times.
== END 2023-10-16 23:59 | disposition left against medical advice (07) ==
PROVIDERS: Physician Assistant; Emergency Provider Emergency Medicine; PCP Internal Medicine
DX: R10.9 Unspecified abdominal pain (principal)
CPT/HCPCS: 36415; 80048; 81001; 81025; 85025; 99282; 99283

== ENCOUNTER 2023-11-28 11:20 | Outpatient (AMB) | payer OTHER, SELFPAY ==
[2023-11-28 11:54] VITALS: BP 128/80; PULSE 71; O2SAT 100; BMI 34.4
--- NOTE | 2023-11-28 11:54 | A.OFFPC_ITS ---
Vital Signs 11/28/23 11:54 Height 5 ft 3 in Weight 194 lb BMI 34.4 BP 128/80 Blood Pressure Location Lt brachial Position Sitting Pulse 71 Pulse Source Pulse Oximeter Pulse Oximetry (%) 100 Oxygen Delivery Method Room Air Intake Visit Reasons: Annual PE Intake Note: Pt is here today for PE. Allergies No Known Allergies [No Known Allergies*] Allergy (Mild, Verified 11/28/23 11:55) NOT APPLICABLE Medication List - Last Reconciled 11/28/23 by Liza Mosquera MD cholecalciferol (vitamin D3) 1,250 mcg PO 2XW 3 months flash glucose sensor (FreeStyle Tad 2 Sensor kit) As directed folic acid 1 mg PO DAILY FreeStyle Crescent Lite (blood-glucose meter) As directed to test blood sugar NS FreeStyle Lite Strips (blood sugar diagnostic) test blood sugar once a day NS lancets (FreeStyle Lancets) test blood sugar once a day metformin 850 mg PO BID Tobacco use date assessed: 11/28/23 Dental Screening Dental Screen Date: 11/28/23 Did you have a dental visit in the last 12 months?: Yes Did you have a dental problem in the last 6 months where you did not have access to dental care?: No Was dental information given to patient?: Patient has dentist HPI Annual PE HPI Details Pt presents for PE. She complains of feeling tired having intermittent palpitations almost daily lasting a few minutes at a time. Patient denies chest pain or shortness of breath. She reports having irregular but heavy menstrual bleeding. She has been taking metformin for diabetes and monitoring her blood glucose with readings between 130-160. Patient has been following ADA diet but not exercising regularly FORMERLY [facility] Medical History Vitamin D deficiency Sigmoid thickening Constipation Anemia Hyperglycemia Hyperlipidemia Sciatica Anxiety Lung nodule seen on imaging study Annual physical exam Surgical History History of appendectomy Family History Father HTN (hypertension) Mother HTN (hypertension) Brother No problems noted. Brother No problems noted. Son No problems noted. Son No problems noted. Daughter No problems noted. Social History Housing: Apartment Alcohol intake: never Patient Tobacco Use Status: Never used Tobacco e-Cigarette/Vaping Use: Never Used Current occupational status: unemployed Gender identity: Female Cognitive needs: No Hearing needs: No Vision needs: Yes Female Reproductive History Menstrual Age of Menarche: 11 Questionnaire Thrive Questionnaire Date Thrive assessed: 11/28/22 I am a: Patient What is your living situation today?: I have a steady place to live Within the past 12 months, did the food you bought not last and you didn't have the money to get more?: Never true Within the past 12 months, did you worry whether your food would run out before you got money to buy more?: Never true THRIVE Score: 0 AUDIT C Alcohol Use Questionnaire (AUDIT-C) 1. How often do you have a drink containing alcohol?: Never 3. How often do you have six or more drinks on one occasion?: Never Total Score: 0 CARMEN-7 AMB Questionnaire CARMEN-7 Date CARMEN - 7 assessed: 11/28/22 Feeling nervous, anxious, or on edge: 1 = Several days Not being able to stop or control worryin = Several days Worrying too much about different things: 1 = Several days Trouble relaxin = Several days Being so restless that it is hard to sit still: 0 = Not at all Becoming easily annoyed or irritable: 1 = Several days Feeling afraid as if something awful might happen: 1 = Several days Total CARMEN-7 score (0-4 normal; 5-9 mild; 10-14 moderate; 15-21 severe): 6 Source: Developed by Drs. Nicko Logan, Anika Wynn, Christopher Rodriguez and colleagues, with an educational yen from [employer]. Review of Systems Const All systems reviewed & are unremarkable except as noted in HPI and below Reports no additional complaints Eyes Reports no additional complaints ENT Reports no additional complaints Card Reports no additional complaints Resp Reports no additional complaints GI Reports no additional complaints Reports no additional complaints Musc Reports no additional complaints Physical exam (Primary Care) Vital Signs: Last Vital Signs Pulse 71 11/28/23 11:54 BP 128/80 11/28/23 11:54 Pulse Ox 100 11/28/23 11:54 Oxygen Delivery Method Room Air 11/28/23 11:54 BMI result Body Mass Index 34.4 Tobacco/Smoking Status: Tobacco use Status Tobacco use date assessed 11/28/23 11/28/23 12:44 Patient Tobacco Use Status Never used Tobacco 11/28/23 12:44 e-Cigarette/Vaping Use Never Used 11/28/23 12:44 Thrive Assessment: Date of Thrive Assessment Date Thrive assessed 11/28/22 11/28/23 12:44 Const General: no acute distress HENMT Head: Yes normal to inspection Ears: hearing grossly normal bilaterally General nose exam: Normal external nose present Face and sinus: Yes normal facial exam Throat: Yes posterior oropharynx normal Eyes General: appearance normal, both eyes and all related structures Neck Neck: Yes no lymphadenopathy and Yes supple Resp Effort & Inspection: normal respiratory effort Auscultation: clear to auscultation bilaterally Cardio Rhythm: regular rhythm Heart sounds: S1 normal heart sound present and S2 normal heart sound present GI Inspection: Yes normal to inspection Palpation (GI): Soft to palpation Percussion: Yes normal to percussion Auscultation: normal bowel sounds Assessment and Plan Assessment & Plan (1) Palpitations: Code(s): R00.2 - Palpitations Plan: For chronic palpitations Holter monitor will be obtained (2) DM type 2 (diabetes mellitus, type 2): Comment: Poorly controlled, noncompliant Code(s): E11.9 - Type 2 diabetes mellitus without complications Plan: ADA diet increase exercise weight loss discussed with the patient. Jardiance 10 mg will be added to metformin,. Patient was advised to monitor her fasting blood glucose and follow-up in 1 month (3) Anemia: Code(s): D64.9 - Anemia, unspecified Plan: For chronic anemia iron studies will be obtained and patient, may need to restart iron supplement. (4) Annual physical exam: Comment: Negative Pap smear 11/19 Code(s): Z00.00 - Encounter for general adult medical examination without abnormal findings Plan: Well-balanced diet regular exercise weight loss discussed with the patient follow-up in 1 Orders: Orders Vitamin B12 and Folate Today D64.9 - Anemia, unspecified, E11.9 - Type 2 diabetes mellitus without complications, R00.2 - Palpitations IRON PROFILE Today D64.9 - Anemia, unspecified, E11.9 - Type 2 diabetes mellitus without complications, R00.2 - Palpitations ECG 3 day holter monitor Today D64.9 - Anemia, unspecified, E11.9 - Type 2 diabetes mellitus without complications, R00.2 - Palpitations Comprehensive Met. Panel Today D64.9 - Anemia, unspecified, E11.9 - Type 2 diabetes mellitus without complications, R00.2 - Palpitations Complete Blood Count Auto Diff Today D64.9 - Anemia, unspecified, E11.9 - Type 2 diabetes mellitus without complications, R00.2 - Palpitations Medications: New empagliflozin (Jardiance) 10 mg PO DAILY 90 tabs 0RF Refilled metformin 850 mg PO BID 180 tabs 0RF Coding Level of Care Code Est Pt Prev Care 40-64y(92847) Diagnoses Palpitations R00.2 DM type 2 (diabetes mellitus, type 2) E11.9 Anemia D64.9 Annual physical exam Z00.00
== END 2023-11-28 14:31 | disposition home or self-care (01) ==
PROVIDERS: PCP Internal Medicine; Visit Provider Internal Medicine
DX: Z00.00 Encounter for general adult medical examination without abnormal findings (principal); R00.2 Palpitations; E11.9 Type 2 diabetes mellitus without complications; D64.9 Anemia, unspecified
CPT/HCPCS: 99396

== ENCOUNTER → 2023-12-03 13:25 | Outpatient (REF) | payer OTHER, SELFPAY ==
--- NOTE | 2023-12-03 13:28 | HM_ITS ---
* Total monitoring time 2 days and 18 hours. * Underlying rhythm is sinus with an average ventricular rate of 88/Min. * Very rare supraventricular, ventricular ectopy. * No sustained arrhythmias. * No significant pauses or AV blocks. * No patient markers or diary events. MTDD
[2023-12-03 13:43] LABS: MANUAL DIFF FLAG NO
[2023-12-03 14:25] LABS: Basophils Absolute Auto 0.1 X10*3/uL (0.0-0.2); Basophils Percent Auto 0.8 % (0-2); Eosinophils Percent Auto 0.5 % (0-4); Hematocrit 30.8 % (37.0-47.0); Hemoglobin 8.7 g/dl (12.0-16.0); Imm Gran Abs Auto 0.02 X10*3/uL (0.00-0.03); Imm Gran Pct Auto 0.3 % (0.0-0.4); Lymphocytes Absolute Auto 2.1 X10*3/uL (1.2-4.9); Lymphocytes Percent Auto 27.6 % (20-40); Mean Corpuscular HGB Conc 28.2 g/dl (31.0-35.0); Mean Corpuscular Hemoglobin 17.5 pg (27.0-33.0); Mean Platelet Volume 10.4 fL (9.4-12.3); Monocytes Absolute Auto 0.4 X10*3/uL (0.1-1.2); Monocytes Percent Auto 5.3 % (2-11); Neutrophils Absolute Auto 4.9 x10*3/uL (2.0-8.3); Neutrophils Percent Auto 65.5 % (45-73); Platelet Count 447 X10*3/uL (160-400); Red Blood Count 4.97 X10*6/uL (4.20-5.50); Red Cell Distribution Width 19.2 % (11.0-16.0); White Blood Count 7.5 X10*3/uL (4.8-10.8)
[2023-12-03 14:57] LABS: Alanine Aminotransferase 35 U/L (0-31); Albumin Level 4.2 g/dL (3.5-5.0); Alkaline Phosphatase 105 U/L (39-117); Anion Gap 19 (12-20); Aspartate Amino Transferase 45 U/L (5-31); Bilirubin Total 0.3 mg/dL (0.0-1.0); Blood Urea Nitrogen 7 mg/dL (9-16); Calcium 9.6 mg/dL (8.4-10.2); Carbon Dioxide 20 mmol/L (22-29); Chloride 104 mmol/L (96-108); Estimated Glomerular Filt Rate > 60; Glucose Random 128 mg/dL (60-115); Iron 30 mcg/dL (30-160); Percent Iron Saturation 7 % (15-50); Potassium 4.7 mmol/L (3.3-5.1); Sodium 138 mmol/L (135-145); Total Iron Binding Capacity 439 mcg/dL (228-428); Total Protein 8.4 g/dL (6.5-8.0); Unsaturated Iron Binding 409 ug/dL
[2023-12-03 15:25] LABS: Folate 6.8 ng/mL (> or = 4.0); Vitamin B12 359 pg/mL (200-900)
== END ==
LOC: HO.CARD 13:25
PROVIDERS: PCP Internal Medicine; Visit Provider Internal Medicine
DX: R00.2 Palpitations (principal); E11.9 Type 2 diabetes mellitus without complications; D64.9 Anemia, unspecified
CPT/HCPCS: 36415; 80053; 82607; 82746; 83540; 85025; 93242

== ENCOUNTER → 2023-12-03 13:28 | Outpatient (BNV) | payer OTHER, SELFPAY | PROVIDERS: PCP Internal Medicine; Visit Provider Internal Medicine | DX: R00.2 Palpitations (principal) | CPT/HCPCS: 93244 ==

== ENCOUNTER 2024-01-21 08:05 | Emergency (ER) | payer OTHER, SELFPAY ==
--- NOTE | ~2024-01-21 | CT_ITS ---
EXAMINATION: CT ABDOMEN AND PELVIS WITH CONTRAST CLINICAL INFORMATION: Lower abdominal pain and tenderness COMPARISON: CT abdomen pelvis 07/22/2023 TECHNIQUE: Multidetector volumetric images were obtained from the superior aspect of the liver through the pubic symphysis following administration 85 mL of Omnipaque 350 intravenous contrast. Sagittal and coronal reformatted images were obtained on the technologist's workstation. Oral contrast: No This CT examination was performed using dose optimization techniques as appropriate, variously including the following: *Automated exposure control *Adjustment of mA and/or kV according to patient size (this includes techniques or standardized protocols for targeted exams where dose is matched to indication/reason for exam; i.e. extremities or head) *Use of iterative reconstruction technique DLP: 644 mGy-cm FINDINGS: LUNG BASES: The visualized lung bases are unremarkable. LIVER, GALLBLADDER, AND BILIARY TREE: The liver is normal in size, shape, and attenuation. No focal hepatic lesion or biliary ductal dilatation is present. The gallbladder is unremarkable with no evidence of radiopaque gallstones, gallbladder wall thickening, or obvious pericholecystic inflammatory changes. PANCREAS: Unremarkable. SPLEEN: Unremarkable. ADRENAL GLANDS: Unremarkable. KIDNEYS AND URETERS: The kidneys are normal in size, shape, and attenuation. No hydronephrosis, hydroureter, or calculi seen. No perinephric stranding. BLADDER: Unremarkable. GASTROINTESTINAL TRACT: There is sigmoid diverticulosis without diverticulitis. The small and large bowel are otherwise unremarkable. The appendix appears to have been surgically removed. ABDOMINAL WALL: No significant hernia is appreciated. There is a tiny periumbilical hernia seen containing only fat. LYMPH NODES: No retroperitoneal lymphadenopathy. VASCULAR: Unremarkable. PELVIC VISCERA: The uterus and adnexa are unremarkable. No free intraperitoneal fluid. A nabothian cyst is present in the cervix. OSSEOUS STRUCTURES: Unremarkable. CT/CT abdomen pelvis w IV con IMPRESSION: 1. A cause for the patient's lower abdominal pain and tenderness has not been found. 2. Incidental note made of sigmoid diverticulosis without diverticulitis and a nabothian cyst in the cervix. Fleischner guidelines were followed.
[2024-01-21 08:31] VITALS: BP 155/83; PULSE 72; RESP 19; TEMP 36.1; O2SAT 100; BMI 33.7
[2024-01-21 08:53] LABS: MANUAL DIFF FLAG NO
[2024-01-21 08:56] LABS: Appearance Urine Clear; Color Urine Yellow; Glucose Urine UA Negative (Negative); Leukocyte Esterase Urine Negative (Negative); Nitrite Urine Negative (Negative); PH 5.5 (5.0-9.0); Specific Gravity - Urine 1.015 (1.005-1.025); Urine Blood Negative (Negative); Urine Ketones Negative (Negative); Urine Protein Negative (Neg-Trace)
[2024-01-21 08:57] LABS: Basophils Absolute Auto 0.1 X10*3/uL (0.0-0.2); Basophils Percent Auto 1.1 % (0-2); Eosinophils Absolute Auto 0.1 X10*3/uL (0.0-0.4); Eosinophils Percent Auto 1.4 % (0-4); Hemoglobin 9.2 g/dl (12.0-16.0); Imm Gran Abs Auto 0.02 X10*3/uL (0.00-0.03); Imm Gran Pct Auto 0.3 % (0.0-0.4); Lymphocytes Absolute Auto 1.9 X10*3/uL (1.2-4.9); Lymphocytes Percent Auto 29.4 % (20-40); Mean Corpuscular HGB Conc 27.9 g/dl (31.0-35.0); Mean Corpuscular Hemoglobin 16.8 pg (27.0-33.0); Mean Platelet Volume 9.6 fL (9.4-12.3); Monocytes Absolute Auto 0.4 X10*3/uL (0.1-1.2); Monocytes Percent Auto 5.3 % (2-11); Neutrophils Absolute Auto 4.1 x10*3/uL (2.0-8.3); Neutrophils Percent Auto 62.5 % (45-73); Platelet Count 466 X10*3/uL (160-400); Red Blood Count 5.46 X10*6/uL (4.20-5.50); Red Cell Distribution Width 19.7 % (11.0-16.0); White Blood Count 6.6 X10*3/uL (4.8-10.8)
[2024-01-21 08:59] LABS: Mean Corpuscular Volume 60.4 fL (80.0-98.0)
[2024-01-21 09:17] LABS: Alanine Aminotransferase 37 U/L (0-31); Alkaline Phosphatase 91 U/L (39-117); Anion Gap 12 (12-20); Aspartate Amino Transferase 34 U/L (5-31); Bilirubin Direct 0.2 mg/dL (0.0-0.5); Bilirubin Total 0.3 mg/dL (0.0-1.0); Blood Urea Nitrogen 8 mg/dL (9-16); Calcium 8.9 mg/dL (8.4-10.2); Carbon Dioxide 22 mmol/L (22-29); Chloride 106 mmol/L (96-108); Creatinine Clr Calc Pharmacy 114.9; Estimated Glomerular Filt Rate > 60; Glucose Random 136 mg/dL (60-115); Lipase 44 U/L (8-78); Potassium 3.8 mmol/L (3.3-5.1); Sodium 136 mmol/L (135-145); Total Protein 7.7 g/dL (6.5-8.0)
--- NOTE | 2024-01-21 11:56 | ED.ABDPAIN ---
HPI - Abdominal Pain General Chief Complaint: Abdominal Pain Stated Complaint: abd pain Time Seen by Provider: 01/21/24 11:27 Source: patient Mode of arrival: ambulatory Limitations: no limitations History of Present Illness HPI narrative: Staci is a 43 year old female with past medical history of diverticulosis, DMII, presenting today for evaluation of abdominal pain for 2 weeks and diarrhea for 3 days. She reports lower abdominal pain that is intermittent and cramping in nature. States that the lower abdominal pain is worse on the left lower side. Also reports vaginal pressure and burning. Denies any changes in urination habits or burning with urination. Reports that the abdominal pain has persisted for 2 weeks for has not changed, improved, or worsened. Diarrhea started Sunday, reports episodes of diffuse watery diarrhea every 40 minutes. Since onset of diarrhea, she has been having difficulty sitting or laying down directly on her bottom. Last episode of diarrhea was yesterday. Had formed stool this morning, reports that it was very hard to pass and painful. Had one episode of blood on tissue paper after wiping. Denies any vomiting. She is currently fasting for Ramada and says that there is no difference in the occurrence of abdominal pain with food- pain is intermittent throughout the day. Per patient, follows with GI but has not been seen in a while. No history of colonoscopy. MD elicited complaint: abdominal pain Pertinent past history: diverticulitis Onset (ago): week(s) (2 weeks) Pain Consistency: intermittent and colicky Location: other (lower abdominal pain, located suprapubicly. Worse in left lower quadrant) Severity: severe Quality: cramping Radiation: LLQ and RLQ Migration to: no migration Exacerbating factors: nothing Relieving factors: rest Associated symptoms: diarrhea Related Data Date of Last Menstrual Period: 11/27/23 Hx Last Menstrual Period: Saw primary care, PCP said that she is perimenopausal Previous Rx's Medication Instructions Recorded FreeStyle [place] Lite #1 ea 06/16/22 (blood-glucose meter) FreeStyle Lite Strips (blood sugar #100 ea 06/16/22 diagnostic) lancets 28 gauge (FreeStyle #100 ea 06/16/22 Lancets) flash glucose sensor (FreeStyle #2 ea 01/04/23 Tad 2 Sensor kit) folic acid 1 mg tablet 1 mg PO DAILY #30 tabs 01/18/23 cholecalciferol (vitamin D3) 1,250 1,250 mcg PO 2XW 3 months #26 caps 03/28/23 mcg (50,000 unit) capsule metformin 850 mg tablet 850 mg PO BID #180 tabs 10/19/23 empagliflozin 10 mg tablet 10 mg PO DAILY #90 tabs 11/28/23 (Jardiance) metformin 850 mg tablet 850 mg PO BID #180 tabs 11/28/23 hydrocortisone 1 %-pramoxine 1 % 1 appl AL DAILY PRN hemorrhoids 01/21/24 rectal foam (Proctofoam HC) #10 grams Allergies Allergy/AdvReac Type Severity Reaction Status Date / Time No Known Allergies Allergy Mild NOT Verified 11/28/23 11:55 [No Known Allergies*] APPLICABLE Review of Systems Review of Systems Yes all other systems are reviewed and are negative FORMERLY [facility] Past Medical History Medical History Vitamin D deficiency Sigmoid thickening Constipation Anemia Hyperglycemia Hyperlipidemia Sciatica Anxiety Lung nodule seen on imaging study Annual physical exam Surgical History History of appendectomy Date of Last Menstrual Period: 11/27/23 Hx Last Menstrual Period: Saw primary care, PCP said that she is perimenopausal Family History Family History Father HTN (hypertension) Mother HTN (hypertension) Brother No problems noted. Brother No problems noted. Son No problems noted. Son No problems noted. Daughter No problems noted. Social History Social History Housing: Apartment Alcohol intake: never Patient Tobacco Use Status: Never used Tobacco e-Cigarette/Vaping Use: Never Used Advance Directives: No Advance Directives Information Provided: No Current occupational status: unemployed Gender identity: Female Cognitive needs: No Hearing needs: No Vision needs: Yes Physical Exam ED Vital Signs: Vital Signs - 24 hr 01/21/24 08:31 Temperature 97.0 F Pulse Rate 72 Respiratory Rate 19 Blood Pressure 155/83 H Pulse Oximetry 100 Oxygen Delivery Method Room Air BMI result Body Mass Index 33.7 Appearance: Alert. Oriented X3. In moderate distress, unable to comfortably lay down, shifting from side to side. Head: normocephalic, atraumatic. Respiratory: No respiratory distress. Breath sounds normal. Abdomen: Soft, no guarding or rigidity. Reports tenderness to palpation LLQ & RLQ, reports that worse in LLQ. +BS x4 Rectal: one small external hemorrhoid, multiple internal hemorrhoids felt on internal examination. No fissuring, sores or active bleeding on inspection. scant amount of brown stool in rectal vault Skin: Skin warm and dry. Normal skin color. Normal skin turgor. No rashes. Extremities: No lower extremity edema. No joint swelling. Neuro/psych: Oriented X 3. No motor deficit. Course Reevaluation(s) Reevaluation #1: Patient feeling better after morphine and Zofran. She was tolerating p.o.. Only complaining of rectal pain and discomfort. Abdominal pain was improved. CT scan was unremarkable. At this time she is stable for discharge home with outpatient follow-up with GI. Medical Decision Making Medical Decision Making MDM Narrative: Staci is a 43 year old female with past medical history of anemia, diverticulosis, DM2, and vitamin D deficiency presenting for evaluation of abdominal pain for 2 weeks and diarrhea for 3 days. Patient reports lower abdominal/suprapubic pain that is intermittent and crampy in nature. States that it is unchanged from initial onset 2 weeks ago. Has vaginal burning/pressure with the pain. No changes in urination habits or burning with urination. She has been having diarrhea since Sunday. Reports watery diarrhea every 40 minutes. Last episode of yesterday. Had formed stool this morning that she states was very hard and painful to pass. Since onset of diarrhea, she has had difficulty sitting or laying down directly on her bottom. On physical exam, she is hypertensive at 155/83, all other vital signs stable. Abdominal is soft on palpation, she reports some pain with palpation of the lower quadrants, says it is worse in LLQ. There is distention or masses on exam. Bowel sounds are present and reactive. Digital rectal exam reveals multiple internal hemorrhoids. Inspection of the anorectal region reveals no fissuring or sores, there is one small external hemorrhoid. No external bleeding is noted. Hemoocult is negative. Urinary tract infection at this time is unlikely considering benign urinalysis. Ordered CT abdominal with IV contrast to evaluation for acute diverticulitis considering patient's history of diverticulosis and LLQ pain. CT abdomen with IV contrast revealed no etiology for Staci's acute abdominal pain. There are signs of chronic diverticulosis, but no signs of acute diverticulitis. Discussed CT findings with patient and recommended follow up with GI. Will order hydrocortisone suppository for hemorrhoid relief as patient requests. Differential Diagnosis Differential Diagnoses: The differential diagnosis associated with the presentation includes acute diverticulitis, viral gastroenteritis, infection diarrhea, constipation, urinary tract infection, lower GI bleed, STI, anal fissure, rectal abscess Admission/Observation Consideration of admission/observation: Escalation of care including admission/observation considered Lab Data MDM Lab Attestation statement: I reviewed the patient's lab results. Stable microcytic anemia and thrombocytosis 01/21/24 08:47 01/21/24 08:47 Labs: Lab Results 01/21/24 Range/Units 08:47 WBC 6.6 (4.8-10.8) X10*3/uL RBC 5.46 (4.20-5.50) X10*6/uL Hgb 9.2 L (12.0-16.0) g/dl Hct 33.0 L (37.0-47.0) % MCV 60.4 L (80.0-98.0) fL MCH 16.8 L (27.0-33.0) pg MCHC 27.9 L (31.0-35.0) g/dl RDW 19.7 H (11.0-16.0) % Plt Count 466 H (160-400) X10*3/uL MPV 9.6 (9.4-12.3) fL Immature Gran % (Auto) 0.3 (0.0-0.4) % Neut % (Auto) 62.5 (45-73) % Lymph % (Auto) 29.4 (20-40) % Lea % (Auto) 5.3 (2-11) % Eos % (Auto) 1.4 (0-4) % Baso % (Auto) 1.1 (0-2) % Lymph # (Auto) 1.9 (1.2-4.9) X10*3/uL Lea # (Auto) 0.4 (0.1-1.2) X10*3/uL Eos # (Auto) 0.1 (0.0-0.4) X10*3/uL Baso # (Auto) 0.1 (0.0-0.2) X10*3/uL Abs Immat Gran (auto) 0.02 (0.00-0.03) X10*3/uL Absolute Neuts (auto) 4.1 (2.0-8.3) x10*3/uL Absolute Nucleated RBC 0.000 (0.0-0.012) X10*3/uL Nucleated RBC % (auto) 0.0 (0.0-0.2) /100WBC Sodium 136 (135-145) mmol/L Potassium 3.8 (3.3-5.1) mmol/L Chloride 106 (96-108) mmol/L Carbon Dioxide 22 (22-29) mmol/L Anion Gap 12 (12-20) BUN 8 L (9-16) mg/dL Creatinine 0.65 (0.5-1.4) mg/dL Estim Creat Clear Calc 114.9 Estimated GFR > 60 Random Glucose 136 H (60-115) mg/dL Calcium 8.9 D (8.4-10.2) mg/dL Total Bilirubin 0.3 (0.0-1.0) mg/dL Direct Bilirubin 0.2 (0.0-0.5) mg/dL AST 34 H (5-31) U/L ALT 37 H (0-31) U/L Alkaline Phosphatase 91 (39-117) U/L Total Protein 7.7 (6.5-8.0) g/dL Albumin 4.0 (3.5-5.0) g/dL Lipase 44 (8-78) U/L Urine Color Yellow Urine Appearance Clear Urine pH 5.5 (5.0-9.0) Ur Specific [place] 1.015 (1.005-1.025) Urine Protein Negative (Neg-Trace) mg/dL Urine Glucose (UA) Negative (Negative) mg/dL Urine Ketones Negative (Negative) mg/dL Urine Blood Negative (Negative) Urine Nitrite Negative (Negative) Ur Leukocyte Esterase Negative (Negative) Independent Interpretation I performed an independent interpretation of an: CT Scan Interpretation: CT scan reviewed, no evidence of obstruction or free air. No visible abscess or balwinder colonic stranding. Agree with radiologist's read Radiology Impression Discussion of test interpretation with radiology: I have reviewed the radiologist's reading. Radiologist Impression: EXAMINATION: CT ABDOMEN AND PELVIS WITH CONTRAST CLINICAL INFORMATION: Lower abdominal pain and tenderness COMPARISON: CT abdomen pelvis 07/22/2023 TECHNIQUE: Multidetector volumetric images were obtained from the superior aspect of the liver through the pubic symphysis following administration 85 mL of Omnipaque 350 intravenous contrast. Sagittal and coronal reformatted images were obtained on the technologist's workstation. Oral contrast: No This CT examination was performed using dose optimization techniques as appropriate, variously including the following: *Automated exposure control *Adjustment of mA and/or kV according to patient size (this includes techniques or standardized protocols for targeted exams where dose is matched to indication/reason for exam; i.e. extremities or head) *Use of iterative reconstruction technique DLP: 644 mGy-cm FINDINGS: LUNG BASES: The visualized lung bases are unremarkable. LIVER, GALLBLADDER, AND BILIARY TREE: The liver is normal in size, shape, and attenuation. No focal hepatic lesion or biliary ductal dilatation is present. The gallbladder is unremarkable with no evidence of radiopaque gallstones, gallbladder wall thickening, or obvious pericholecystic inflammatory changes. PANCREAS: Unremarkable. SPLEEN: Unremarkable. ADRENAL GLANDS: Unremarkable. KIDNEYS AND URETERS: The kidneys are normal in size, shape, and attenuation. No hydronephrosis, hydroureter, or calculi seen. No perinephric stranding. BLADDER: Unremarkable. GASTROINTESTINAL TRACT: There is sigmoid diverticulosis without diverticulitis. The small and large bowel are otherwise unremarkable. The appendix appears to have been surgically removed. ABDOMINAL WALL: No significant hernia is appreciated. There is a tiny periumbilical hernia seen containing only fat. LYMPH NODES: No retroperitoneal lymphadenopathy. VASCULAR: Unremarkable. PELVIC VISCERA: The uterus and adnexa are unremarkable. No free intraperitoneal fluid. A nabothian cyst is present in the cervix. OSSEOUS STRUCTURES: Unremarkable. CT/CT abdomen pelvis w IV con IMPRESSION: 1. A cause for the patient's lower abdominal pain and tenderness has not been found. 2. Incidental note made of sigmoid diverticulosis without diverticulitis and a nabothian cyst in the cervix. Fleischner guidelines were followed. External Record Review External record reviewed: Outpatient record, Prior outpatient labs and Prior outpatient radiology Prescription Management I considered prescription management with: Pain Medication and Antibiotic Chronic Conditions Patient?s care impacted by: Diabetes Medications Administered Discontinued Medications Generic Name Dose Route Start Last Admin Trade Name Freq PRN Reason Stop Dose Admin Iohexol 100 ml 01/21/24 12:58 01/21/24 12:59 Iohexol 350 Mg/Ml 100 Ml Infus..Btl IV 01/21/24 12:59 85 ml ONCE ONE Administration Morphine Sulfate 4 mg 01/21/24 11:51 01/21/24 12:08 Morphine Sulfate 4 Mg/Ml Cartridge IVPUSH 01/21/24 11:52 4 mg ONCE ONE Administration Protocol Ondansetron HCl 4 mg 01/21/24 11:51 01/21/24 12:08 Ondansetron Hcl 4 Mg/2 Ml Vial IVPUSH 01/21/24 11:52 4 mg ONCE ONE Administration Critical Care Time Critical Care Time Critical Care Time: No Discharge Plan Discharge Clinical Impression: Internal hemorrhoid Abdominal pain Qualifiers: Abdominal location: unspecified location Qualified Code(s): R10.9 - Unspecified abdominal pain Patient Disposition: Home, Self-Care Instructions: Hemorrhoids (DC), Abdominal Pain (ED) Additional Instructions: Your lab work today was unremarkable. Your CT scan did not show any causes of your abdominal pain You lab workup today was unremarkable. Your urine test was negative for infection. Recommend rest and plenty of oral hydration. Stick to a bland diet like soup and toast while you are not feeling well. Take the prescribed medication as needed for nausea. Recommend over the counter Pepto Bismol or Imodium for upset stomach and diarrhea. Use the prescribed medication as needed for rectal pain. Keep your stools soft with a stool softner. Eat plenty of fiber. Follow up with your doctor as well as your GI doctor. If you develop new or worsening symptoms call 911 or come back to the ER for further evaluation. Prescriptions: New Proctofoam HC 1-1 % foam 1 appl AL DAILY PRN (Reason: hemorrhoids) Qty: 10 0RF No Action (DME) blood-glucose meter [FreeStyle [place] Lite] Kit See Rx Instructions .Route Qty: 1 0RF Rx Instructions: As directed to test blood sugar (DME) lancets [FreeStyle Lancets] 28 gauge misc See Rx Instructions .Route Qty: 100 3RF Rx Instructions: test blood sugar once a day (DME) FreeStyle Lite Strips Strip See Rx Instructions .Route Qty: 100 3RF Rx Instructions: test blood sugar once a day folic acid 1 mg tablet 1 mg PO DAILY Qty: 30 3RF cholecalciferol (vitamin D3) 1,250 mcg (50,000 unit) capsule 1,250 mcg PO 2XW 90 Days Qty: 26 3RF metformin 850 mg tablet 850 mg PO BID Qty: 180 0RF metformin 850 mg tablet 850 mg PO BID Qty: 180 0RF Jardiance 10 mg tablet 10 mg PO DAILY Qty: 90 0RF (DME) FreeStyle Tad 2 Sensor Kit See Rx Instructions .Route Qty: 2 3RF Rx Instructions: As directed Referrals: [facility] [place] [facility] [Provider Group] Liza Mosquera MD [Primary Care Provider] -
[2024-01-21] MEDS: Morphine Sulfate 4 MG/ML CARTRIDGE IVPUSH (12:08)
[2024-01-21] MEDS: ondansetron HCL 4 MG/2 ML VIAL IVPUSH (12:08)
[2024-01-21] MEDS: iohexoL 350 MG/ML 100 ML INFUS..BTL IV (12:59)
[2024-01-21 15:01] VITALS: BP 147/73; PULSE 71; RESP 16; TEMP 36.7; O2SAT 100
[2024-01-21 15:02] VITALS: BP 147/73; PULSE 71; RESP 16; TEMP 36.6; O2SAT 100
== END 2024-01-21 15:03 | disposition home or self-care (01) ==
PROVIDERS: Emergency Provider Emergency Medicine; PCP Internal Medicine
DX: R10.30 Lower abdominal pain, unspecified (principal); K64.8 Other hemorrhoids; E11.9 Type 2 diabetes mellitus without complications; K57.90 Diverticulosis of intestine, part unspecified, without perforation or abscess without bleeding
CPT/HCPCS: 36415; 74177; 80048; 80076; 81003; 83690; 85025; 96374; 96375; 99283; 99284; J2270; J2405; Q9967

== ENCOUNTER 2024-03-11 20:05 | Emergency (ER) | payer OTHER, SELFPAY ==
--- NOTE | ~2024-03-11 | XR_ITS ---
EXAMINATION: XR HAND, RIGHT CLINICAL INFORMATION: Pain status post trauma. COMPARISON: None available. TECHNIQUE: PA, lateral, and oblique views of the right hand. FINDINGS: The bones and soft tissues are normal. No fracture. Alignment is anatomic. Joint spaces are maintained. No erosions or soft tissue calcifications. XR/XR hand RT 2V IMPRESSION: No fracture or dislocation.
[2024-03-11 20:14] VITALS: BP 151/77; PULSE 88; RESP 18; TEMP 36.8; O2SAT 100; BMI 33.1
--- NOTE | 2024-03-11 21:13 | ED_ITS ---
HPI - Extremity Problem General Chief complaint: Extremity Injury, Upper Stated complaint: rt hand closed in car door History of Present Illness HPI Narrative: Left withtou completion of treatment by ED provider Related Data Previous Rx's ?Medication ?Instructions ?Recorded FreeStyle [place]estone Lite #1 ea 06/16/22 (blood-glucose meter) FreeStyle Lite Strips (blood sugar #100 ea 06/16/22 diagnostic) lancets 28 gauge (FreeStyle #100 ea 06/16/22 Lancets) flash glucose sensor (FreeStyle #2 ea 01/04/23 Tad 2 Sensor kit) folic acid 1 mg tablet 1 mg PO DAILY #30 tabs 01/18/23 cholecalciferol (vitamin D3) 1,250 1,250 mcg PO 2XW 3 months #26 caps 03/28/23 mcg (50,000 unit) capsule metformin 850 mg tablet 850 mg PO BID #180 tabs 10/19/23 metformin 850 mg tablet 850 mg PO BID #180 tabs 11/28/23 hydrocortisone 1 %-pramoxine 1 % 1 appl [place] DAILY PRN hemorrhoids 01/21/24 rectal foam (Proctofoam HC) #10 grams empagliflozin 10 mg tablet 10 mg PO DAILY #30 tabs 02/26/24 (Jardiance) Allergies Allergy/AdvReac Type Severity Reaction Status Date / Time No Known Allergies Allergy Mild NOT Verified 03/11/24 20:18 [No Known Allergies*] APPLICABLE [facility]LY [facility] Past Medical History Medical History Vitamin D deficiency Sigmoid thickening Constipation Anemia Hyperglycemia Hyperlipidemia Sciatica Anxiety Lung nodule seen on imaging study Annual physical exam Surgical History History of appendectomy Family History Family History Father HTN (hypertension) Mother HTN (hypertension) Brother No problems noted. Brother No problems noted. Son No problems noted. Son No problems noted. Daughter No problems noted. Social History Social History Housing: Apartment Alcohol intake: never Patient Tobacco Use Status: Never used Tobacco e-Cigarette/Vaping Use: Never Used Advance Directives: No Advance Directives Information Provided: No Do you have a plan to hurt others: No Plan Current occupational status: unemployed Gender identity: Female Cognitive needs: No Hearing needs: No Vision needs: Yes Physical Exam Vital Signs: Vital Signs: Last Vital Signs Temp 98.2 F 03/11/24 22:14 Pulse 81 03/11/24 22:14 Resp 18 03/11/24 22:14 BP 158/77 H 03/11/24 22:14 Pulse Ox 100 03/11/24 22:14 O2 Del Method Room Air 03/11/24 22:14 BMI result Body Mass Index 33.1 Course Course Course Narrative: RME: Triage done by NOHELIA Salazar. Patient presents to ED for slamming car door on right hand. Patient states right pinky pain. Complain of 4th and 5th finger pain. Patient has complete range of motion of finger. positive for tenderness X-ray ordered. Medications Administered Discontinued Medications Generic Name Dose Route Start Last Admin Trade Name Freq PRN Reason Stop Dose Admin Acetaminophen 975 mg 03/11/24 22:13 03/11/24 22:16 Acetaminophen 325 Mg Tablet PO 03/11/24 22:14 975 mg ONCE ONE Administration Discharge Plan Discharge Clinical Impression: Finger pain Patient Disposition: Left W/O Completing Treatment Prescriptions: No Action (DME) blood-glucose meter [FreeStyle Limestone Lite] Kit See Rx Instructions .Route Qty: 1 0RF Rx Instructions: As directed to test blood sugar (DME) lancets [FreeStyle Lancets] 28 gauge misc See Rx Instructions .Route Qty: 100 3RF Rx Instructions: test blood sugar once a day (DME) FreeStyle Lite Strips Strip See Rx Instructions .Route Qty: 100 3RF Rx Instructions: test blood sugar once a day folic acid 1 mg tablet 1 mg PO DAILY Qty: 30 3RF cholecalciferol (vitamin D3) 1,250 mcg (50,000 unit) capsule 1,250 mcg PO 2XW 90 Days Qty: 26 3RF metformin 850 mg tablet 850 mg PO BID Qty: 180 0RF Jardiance 10 mg tablet 10 mg PO DAILY Qty: 30 0RF Rx Instructions: patient needs to schedule appointment to get more refills Proctofoam HC 1-1 % foam 1 appl [place] DAILY PRN (Reason: hemorrhoids) Qty: 10 0RF metformin 850 mg tablet 850 mg PO BID Qty: 180 0RF (DME) [employer] Tad 2 Sensor Kit See Rx Instructions .Route Qty: 2 3RF Rx Instructions: As directed Discharge Date/Time: 03/11/24 23:20
[2024-03-11 22:14] VITALS: BP 158/77; PULSE 81; RESP 18; TEMP 36.8; O2SAT 100
[2024-03-11] MEDS: Acetaminophen 325 MG TABLET 975 MG PO (22:16)
--- NOTE | 2024-03-11 23:19 | PC.NURSE ---
Pt left without completing treatment, did not notify RN
== END 2024-03-11 23:20 | disposition left against medical advice (07) ==
PROVIDERS: Emergency Provider Emergency Medicine; PCP Internal Medicine
DX: M79.644 Pain in right finger(s) (principal); M79.641 Pain in right hand; Z53.21 Procedure and treatment not carried out due to patient leaving prior to being seen by health care provider
CPT/HCPCS: 73120; 99282; 99283

== ENCOUNTER 2024-03-25 07:48 | Outpatient (REF) | payer OTHER, SELFPAY ==
[2024-03-25 10:28] LABS: MANUAL DIFF FLAG NO
[2024-03-25 10:37] LABS: Basophils Absolute Auto 0.1 X10*3/uL (0.0-0.2); Basophils Percent Auto 0.7 % (0-2); Eosinophils Percent Auto 0.5 % (0-4); Hematocrit 30.4 % (37.0-47.0); Hemoglobin 8.6 g/dl (12.0-16.0); Imm Gran Abs Auto 0.04 X10*3/uL (0.00-0.03); Imm Gran Pct Auto 0.5 % (0.0-0.4); Lymphocytes Absolute Auto 2.4 X10*3/uL (1.2-4.9); Lymphocytes Percent Auto 29.8 % (20-40); Mean Corpuscular HGB Conc 28.3 g/dl (31.0-35.0); Mean Corpuscular Hemoglobin 17.8 pg (27.0-33.0); Mean Platelet Volume 9.7 fL (9.4-12.3); Monocytes Absolute Auto 0.5 X10*3/uL (0.1-1.2); Monocytes Percent Auto 5.9 % (2-11); Neutrophils Percent Auto 62.6 % (45-73); Platelet Count 496 X10*3/uL (160-400); Red Blood Count 4.84 X10*6/uL (4.20-5.50); Red Cell Distribution Width 21.6 % (11.0-16.0)
[2024-03-25 10:38] LABS: Mean Corpuscular Volume 62.8 fL (80.0-98.0)
[2024-03-25 10:52] LABS: Estimated Average Glucose 140 mg/dL; Hemoglobin A1C 109.4872 umol/L; Hemoglobin A1c % 6.5 % (<6.0)
[2024-03-25 11:06] LABS: Alanine Aminotransferase 24 U/L (0-31); Albumin Level 3.9 g/dL (3.5-5.0); Alkaline Phosphatase 86 U/L (39-117); Anion Gap 14 (12-20); Aspartate Amino Transferase 24 U/L (5-31); Bilirubin Total 0.3 mg/dL (0.0-1.0); Blood Urea Nitrogen 9 mg/dL (9-16); Carbon Dioxide 22 mmol/L (22-29); Chloride 107 mmol/L (96-108); Cholesterol 188 mg/dL (<200); Estimated Glomerular Filt Rate > 60; Glucose Fasting 131 mg/dL (60-99); HDL Cholesterol 36 mg/dL (>40); Iron 14 mcg/dL (30-160); LDL Cholesterol Calculated 117 mg/dL (<100); Percent Iron Saturation 3 % (15-50); Potassium 3.6 mmol/L (3.3-5.1); Sodium 139 mmol/L (135-145); Total Iron Binding Capacity 409 mcg/dL (228-428); Total Protein 7.5 g/dL (6.5-8.0); Triglycerides 176 mg/dL (<150); Unsaturated Iron Binding 395 ug/dL
[2024-03-25 11:08] LABS: TSH reflex Free T4 3.89 uIU/mL (0.32-4.0)
[2024-03-25 17:56] LABS: Creatinine Urine 168.06 mg/dL; Microalbum/Creatinine Ratio Ur 11.3 ug/mg cr (<30)
== END 2024-03-25 07:49 | disposition home or self-care (01) ==
LOC: HO.HMGCLDS 07:48
PROVIDERS: PCP Internal Medicine; Visit Provider Internal Medicine
DX: E11.9 Type 2 diabetes mellitus without complications (principal); E78.5 Hyperlipidemia, unspecified; D64.9 Anemia, unspecified
CPT/HCPCS: 36415; 80053; 80061; 82043; 82570; 83036; 83540; 84443; 85025

== ENCOUNTER 2024-03-27 13:14 | Outpatient (AMB) | payer OTHER, SELFPAY ==
[2024-03-27 13:21] VITALS: BP 122/78; PULSE 76; O2SAT 99; BMI 32.8
--- NOTE | 2024-03-27 13:21 | MHC.PC.OV ---
Vital Signs 03/27/24 13:21 Height 5 ft 3 in Weight 185 lb BMI 32.8 BP 122/78 Blood Pressure Location Lt brachial Position Sitting Pulse 76 Pulse Source Pulse Oximeter Pulse Oximetry (%) 99 Oxygen Delivery Method Room Air Intake Visit Reasons: 1 month follow up on labs Intake Note: Pt is here today for 1 month follow up visit. Allergies No Known Allergies [No Known Allergies*] Allergy (Mild, Verified 03/27/24 13:23) NOT APPLICABLE Medication List - Last Reconciled 03/27/24 by Liza Mosquera MD cholecalciferol (vitamin D3) 1,250 mcg PO 2XW 3 months empagliflozin (Jardiance) 10 mg PO DAILY flash glucose sensor (FreeStyle Tad 2 Sensor kit) As directed folic acid 1 mg PO DAILY FreeStyle [place] Lite (blood-glucose meter) As directed to test blood sugar NS FreeStyle Lite Strips (blood sugar diagnostic) test blood sugar once a day NS hydrocortisone-pramoxine 1-1 % (Proctofoam HC) 1 appl [place] DAILY PRN lancets (FreeStyle Lancets) test blood sugar once a day metformin 850 mg PO BID Tobacco use date assessed: 11/28/23 Dental Screening Dental Screen Date: 11/28/23 HPI 1 month follow up on labs HPI Details Patient presents for the follow-up of type 2 diabetes chronic iron deficiency anemia and hyperlipidemia. [facility] Medical History (Updated 03/27/24 @ 14:06 by Liza Mosquera MD) Vitamin D deficiency Sigmoid thickening Constipation Anemia Hyperglycemia Hyperlipidemia Sciatica Anxiety Lung nodule seen on imaging study Annual physical exam Surgical History History of appendectomy Family History Father HTN (hypertension) Mother HTN (hypertension) Brother No problems noted. Brother No problems noted. Son No problems noted. Son No problems noted. Daughter No problems noted. Social History Housing: Apartment Alcohol intake: never Patient Tobacco Use Status: Never used Tobacco e-Cigarette/Vaping Use: Never Used Current occupational status: unemployed Gender identity: Female Cognitive needs: No Hearing needs: No Vision needs: Yes Female Reproductive History Menstrual Age of Menarche: 11 Questionnaire Thrive Questionnaire Date Thrive assessed: 11/28/22 CARMEN-7 AMB Questionnaire CARMEN-7 Date CARMEN - 7 assessed: 11/28/22 Source: Developed by Drs. Nicko Logan, Anika Wynn, Christopher Rodriguez and colleagues, with an educational yen from [employer]. Review of Systems Const All systems reviewed & are unremarkable except as noted in HPI and below Eyes Reports no additional complaints ENT Reports no additional complaints Card Reports no additional complaints Resp Reports no additional complaints GI Reports no additional complaints Physical exam (Primary Care) Vital Signs: Last Vital Signs Pulse 76 03/27/24 13:21 BP 122/78 03/27/24 13:21 Pulse Ox 99 03/27/24 13:21 Oxygen Delivery Method Room Air 03/27/24 13:21 BMI result Body Mass Index 32.8 Tobacco/Smoking Status: Tobacco use Status Tobacco use date assessed 11/28/23 03/27/24 13:25 Patient Tobacco Use Status Never used Tobacco 03/27/24 13:25 e-Cigarette/Vaping Use Never Used 03/27/24 13:25 Thrive Assessment: Date of Thrive Assessment Date Thrive assessed 11/28/22 03/27/24 13:25 Const General: no acute distress HENMT Head: Yes normal to inspection Face and sinus: Yes normal facial exam Throat: Yes posterior oropharynx normal Eyes General: appearance normal, both eyes and all related structures Neck Neck: Yes no lymphadenopathy and Yes supple Resp Effort & Inspection: normal respiratory effort Auscultation: clear to auscultation bilaterally Cardio Rhythm: regular rhythm Heart sounds: S1 normal heart sound present and S2 normal heart sound present GI Inspection: Yes normal to inspection Palpation (GI): Soft to palpation Percussion: Yes normal to percussion Auscultation: normal bowel sounds Assessment and Plan Assessment & Plan (1) DM type 2 (diabetes mellitus, type 2): Code(s): E11.9 - Type 2 diabetes mellitus without complications Plan: A1c is improved to 6.7, ADA diet regular exercise weight loss discussed with the patient. Increase Jardiance to 25 mg and continue metformin. Follow-up in 3 months with a fasting labs before (2) Anemia: Comment: Iron deficiency due to menorrhagia Code(s): D64.9 - Anemia, unspecified Plan: Patient was advised to start iron supplement (3) Hyperlipidemia: Code(s): E78.5 - Hyperlipidemia, unspecified Plan: Low-cholesterol diet regular exercise weight loss discussed with the patient Orders: Orders Hemoglobin A1c 3 Months D64.9 - Anemia, unspecified, E11.9 - Type 2 diabetes mellitus without complications, E78.5 - Hyperlipidemia, unspecified Comprehensive [place]. Panel Fast 3 Months D64.9 - Anemia, unspecified, E11.9 - Type 2 diabetes mellitus without complications, E78.5 - Hyperlipidemia, unspecified Lipid Panel 3 Months D64.9 - Anemia, unspecified, E11.9 - Type 2 diabetes mellitus without complications, E78.5 - Hyperlipidemia, unspecified IRON PROFILE 3 Months D64.9 - Anemia, unspecified, E11.9 - Type 2 diabetes mellitus without complications, E78.5 - Hyperlipidemia, unspecified Complete Blood Count Auto Diff 3 Months D64.9 - Anemia, unspecified, E11.9 - Type 2 diabetes mellitus without complications, E78.5 - Hyperlipidemia, unspecified Medications: New empagliflozin (Jardiance) 25 mg PO DAILY 90 tabs 3RF Discontinued empagliflozin (Jardiance) patient needs to schedule appointment to get more refills Discontinued Reason: Doctor's Order 10 mg PO DAILY 30 tabs 0RF Coding Level of Care Code Est Pt Level 4 (73862) Diagnoses DM type 2 (diabetes mellitus, type 2) E11.9 Anemia D64.9 Hyperlipidemia E78.5
== END 2024-03-27 14:06 | disposition home or self-care (01) ==
PROVIDERS: PCP Internal Medicine; Visit Provider Internal Medicine
DX: E11.9 Type 2 diabetes mellitus without complications (principal); D64.9 Anemia, unspecified; E78.5 Hyperlipidemia, unspecified
CPT/HCPCS: 99214

== ENCOUNTER 2024-06-23 13:17 | Outpatient (AMB) | payer OTHER, SELFPAY ==
--- NOTE | 2024-06-23 13:27 | MHC.OFFWIV ---
Intake Vital Signs 06/23/24 13:28 Height 5 ft 3 in Weight 172 lb BMI 30.5 BP 118/76 Blood Pressure Location Rt brachial Position Sitting Pulse 66 Pulse Source Pulse Oximeter Temp 98.4 F Temp Source Oral Pulse Oximetry (%) 99 Oxygen Delivery Method Room Air Intake Visit Reasons: EP- Skin under RT breast hurts, burning urine Intake Note: pt c/o painful rash under RT breast, burning while urinating. Started 1 week ago Patient Tobacco Use Status: Never used Tobacco Allergies No Known Allergies [No Known Allergies*] Allergy (Mild, Verified 06/23/24 13:28) NOT APPLICABLE Do you need a note to return to daycare/school/sports/work: No HPI HPI Comments History of Present Illness Details Patient is a 43-year-old female with 2 complaints and 1 question today. Her 1st question is after she takes her metformin, she is getting some diarrhea and she is asking if this is normal. Her 1st complaint is that she has a rash under her right breast that is getting itchy and a little bit bigger. She has not tried put anything on it to make it better. She denies any fevers or new lotions or creams or soaps or shampoos or detergents. Her 2nd complaint is that she has had burning with urination since yesterday. She states she also has an increased frequency of urination. She denies any fevers, blood in her urine or low back pain. [facility] Medical History (Updated 06/23/24 @ 14:23 by Tori Farfan PA-C) Vitamin D deficiency Sigmoid thickening Constipation Anemia Hyperglycemia Hyperlipidemia Sciatica Anxiety Lung nodule seen on imaging study Annual physical exam Surgical History History of appendectomy Family History Father HTN (hypertension) Mother HTN (hypertension) Brother No problems noted. Brother No problems noted. Son No problems noted. Son No problems noted. Daughter No problems noted. Social History Housing: Apartment Alcohol intake: never Patient Tobacco Use Status: Never used Tobacco e-Cigarette/Vaping Use: Never Used Current occupational status: unemployed Gender identity: Female Cognitive needs: No Hearing needs: No Vision needs: Yes Female Reproductive History Menstrual Age of Menarche: 11 Review of Systems Const All systems reviewed & are unremarkable except as noted in HPI and below Physical Exam Vital Signs: Last Vital Signs Temp 98.4 F 06/23/24 13:28 Pulse 66 06/23/24 13:28 BP 118/76 06/23/24 13:28 Pulse Ox 99 06/23/24 13:28 Oxygen Delivery Method Room Air 06/23/24 13:28 BMI result Body Mass Index 30.5 Const General: cooperative, healthy appearing, comfortable and no acute distress Orientation/consciousness: patient oriented x3 Limitations: no limitations HEENT Head: Yes normal to inspection Eyes General: appearance normal, both eyes and all related structures Resp Effort & Inspection: normal respiratory effort and able to speak in complete sentences Skin Other: A flat, 5 cm circular darkened patch with whitish hardened edges under the right breast Neuro General: patient oriented x3 Results AMB Urinalysis, Automated UA Leukoctes 0 Curt/uL Last Edit by Clarence Law CMA on 06/23/24 13:40 UA Nitrite Negative Last Edit by Clarence Law CMA on 06/23/24 13:40 UA Urobilinogen 0.2 mg/dL Last Edit by Clarence Law CMA on 06/23/24 13:40 UA Protein 0 mg/dL Last Edit by Clarence Law CMA on 06/23/24 13:40 UA pH 6.0 Last Edit by Clarence Law CMA on 06/23/24 13:40 UA Blood 0 Misha/uL Last Edit by Clarence Law CMA on 06/23/24 13:40 UA Specific [place] 1.015 Last Edit by Clarence Law CMA on 06/23/24 13:40 UA Ketone Negative Last Edit by Clarence Law CMA on 06/23/24 13:40 UA Bilirubin 0 mg/dL Last Edit by Clarence Law CMA on 06/23/24 13:40 UA Glucose 0 mg/dL Last Edit by Clarence Law CMA on 06/23/24 13:40 Results Reviewed Results Reviewed: Laboratory Last Values Urine pH (Auto) 6.0 06/23/24 13:39 Specific [place] (Auto) 1.015 06/23/24 13:39 Urine Protein (Auto) 0 mg/dL 06/23/24 13:39 Glucose (UA)(Auto) 0 mg/dL 06/23/24 13:39 Urine Ketones (Auto) Negative 06/23/24 13:39 Urine Blood (Auto) 0 Misha/uL 06/23/24 13:39 Urine Nitrite (Auto) Negative 06/23/24 13:39 Urine Bilirubin (Auto) 0 mg/dL 06/23/24 13:39 Urine Urobilinogen (Auto) 0.2 mg/dL 06/23/24 13:39 Leukocyte Esterase (Auto) 0 Curt/uL 06/23/24 13:39 Assessment & Plan Assessment & Plan (1) UTI (urinary tract infection): Code(s): N39.0 - Urinary tract infection, site not specified Qualifiers: Urinary tract infection type: acute cystitis Hematuria presence: without hematuria Qualified Code(s): N30.00 - Acute cystitis without hematuria Plan: Counseled patient on red flag warning signs for a kidney stone. Most likely this is a urinary tract infection although UA was negative for infection in the office. We will treat based on her symptoms (2) Medication side effect: Code(s): T88.7XXA - Unspecified adverse effect of drug or medicament, initial encounter Plan: Discussed with patient that some diarrhea when starting metformin is completely normal and should subside with time. If it is something she can not tolerate, she should follow up with her primary care doctor (3) Tinea corporis: Code(s): B35.4 - Tinea corporis Plan: Sent clotrimazole to patient's pharmacy for apparent fungal infection Plan See above Orders: Orders AMB Urinalysis Automated Today Z13.9 - Encounter for screening, unspecified Medications: New clotrimazole 1% 1 appl topical BID 2 weeks 30 grams 0RF cefuroxime axetil 500 mg PO Q12H 10 tabs 0RF Coding Level of Care Code Est Pt Level 4 (80786) Diagnoses Acute cystitis without hematuria N30.00 Urinary tract infection type: acute cystitis Hematuria presence: without hematuria Medication side effect T88.7XXA Tinea corporis B35.4
[2024-06-23 13:28] VITALS: BP 118/76; PULSE 66; TEMP 36.9; O2SAT 99; BMI 30.5
== END 2024-06-23 14:25 | disposition home or self-care (01) ==
PROVIDERS: PCP Internal Medicine; Visit Provider Physician Assistant
DX: N30.00 Acute cystitis without hematuria (principal); T88.7XXA Unspecified adverse effect of drug or medicament, initial encounter; B35.4 Tinea corporis; Z13.9 Encounter for screening, unspecified
CPT/HCPCS: 81003; 99214

== ENCOUNTER 2024-08-05 07:52 | Outpatient (REF) | payer OTHER, SELFPAY ==
[2024-08-05 10:03] LABS: MANUAL DIFF FLAG NO
[2024-08-05 10:09] LABS: Basophils Absolute Auto 0.1 X10*3/uL (0.0-0.2); Eosinophils Percent Auto 0.5 % (0-4); Hematocrit 32.2 % (37.0-47.0); Hemoglobin 9.2 g/dl (12.0-16.0); Imm Gran Abs Auto 0.02 X10*3/uL (0.00-0.03); Imm Gran Pct Auto 0.3 % (0.0-0.4); Lymphocytes Absolute Auto 2.4 X10*3/uL (1.2-4.9); Lymphocytes Percent Auto 31.3 % (20-40); Mean Corpuscular HGB Conc 28.6 g/dl (31.0-35.0); Mean Corpuscular Hemoglobin 17.9 pg (27.0-33.0); Mean Platelet Volume 9.6 fL (9.4-12.3); Monocytes Absolute Auto 0.4 X10*3/uL (0.1-1.2); Monocytes Percent Auto 5.7 % (2-11); Neutrophils Absolute Auto 4.8 x10*3/uL (2.0-8.3); Neutrophils Percent Auto 61.2 % (45-73); Platelet Count 505 X10*3/uL (160-400); Red Blood Count 5.15 X10*6/uL (4.20-5.50); Red Cell Distribution Width 21.9 % (11.0-16.0); White Blood Count 7.8 X10*3/uL (4.8-10.8)
[2024-08-05 10:10] LABS: Mean Corpuscular Volume 62.5 fL (80.0-98.0)
[2024-08-05 10:26] LABS: Alanine Aminotransferase 16 U/L (0-31); Alkaline Phosphatase 89 U/L (39-117); Anion Gap 12 (12-20); Aspartate Amino Transferase 18 U/L (5-31); Bilirubin Total 0.3 mg/dL (0.0-1.0); Blood Urea Nitrogen 6 mg/dL (9-16); Calcium 9.2 mg/dL (8.4-10.2); Carbon Dioxide 24 mmol/L (22-29); Chloride 108 mmol/L (96-108); Cholesterol 186 mg/dL (<200); Estimated Glomerular Filt Rate > 60; Glucose Fasting 102 mg/dL (60-99); HDL Cholesterol 40 mg/dL (>40); Iron 19 mcg/dL (30-160); LDL Cholesterol Calculated 119 mg/dL (<100); Percent Iron Saturation 5 % (15-50); Potassium 3.6 mmol/L (3.3-5.1); Sodium 140 mmol/L (135-145); Total Iron Binding Capacity 414 mcg/dL (228-428); Total Protein 7.3 g/dL (6.5-8.0); Triglycerides 138 mg/dL (<150); Unsaturated Iron Binding 395 ug/dL
[2024-08-05 10:51] LABS: Estimated Average Glucose 123 mg/dL; Hemoglobin A1C 95.2075 umol/L; Hemoglobin A1c % 5.9 % (<6.0)
== END 2024-08-05 07:53 | disposition home or self-care (01) ==
LOC: HO.HMGCLDS 07:52
PROVIDERS: PCP Internal Medicine; Visit Provider Internal Medicine
DX: E11.9 Type 2 diabetes mellitus without complications (principal); D64.9 Anemia, unspecified; E78.5 Hyperlipidemia, unspecified
CPT/HCPCS: 36415; 80053; 80061; 83036; 83540; 85025

== ENCOUNTER 2024-08-07 13:40 | Outpatient (AMB) | payer OTHER, SELFPAY ==
[2024-08-07 13:41] VITALS: BP 124/84; PULSE 85; O2SAT 99; BMI 31.0
--- NOTE | 2024-08-07 13:41 | MHC.PC.OV ---
Vital Signs 08/07/24 13:41 Height 5 ft 3 in Weight 175 lb BMI 31.0 BP 124/84 Blood Pressure Location Lt brachial Position Sitting Pulse 85 Pulse Source Pulse Oximeter Pulse Oximetry (%) 99 Oxygen Delivery Method Room Air Intake Visit Reasons: 3 month follow up / diabetes Intake Note: Pt is here today for 3 months follow up visit. Allergies No Known Allergies [No Known Allergies*] Allergy (Mild, Verified 08/07/24 13:43) NOT APPLICABLE Medication List - Last Reconciled 08/07/24 by Liza Mosquera MD clotrimazole 1% 1 appl topical BID 2 weeks empagliflozin (Jardiance) 25 mg PO DAILY flash glucose sensor (FreeStyle Tad 2 Sensor kit) As directed FreeStyle [place] Lite (blood-glucose meter) As directed to test blood sugar NS FreeStyle Lite Strips (blood sugar diagnostic) test blood sugar once a day NS lancets (FreeStyle Lancets) test blood sugar once a day metformin 850 mg PO BID Tobacco use date assessed: 08/07/24 Dental Screening Dental Screen Date: 08/07/24 Did you have a dental visit in the last 12 months?: Yes Did you have a dental problem in the last 6 months where you did not have access to dental care?: No Was dental information given to patient?: Patient has dentist HPI 3 month follow up / diabetes HPI Details Pt presents for f/u DM 2, better controlled. Patient lost 10 lb on intermittent fasting diet but reports chronic constipation. She used to take Senokot which became less effective over time. [facility] Medical History Vitamin D deficiency Sigmoid thickening Constipation Anemia Hyperglycemia Hyperlipidemia Sciatica Anxiety Lung nodule seen on imaging study Annual physical exam Surgical History [place] teeth extracted History of appendectomy Family History Father HTN (hypertension) Mother HTN (hypertension) Brother No problems noted. Brother No problems noted. Son No problems noted. Son No problems noted. Daughter No problems noted. Social History Housing: Apartment Alcohol intake: never Patient Tobacco Use Status: Never used Tobacco e-Cigarette/Vaping Use: Never Used service: No Current occupational status: unemployed Gender identity: Female Cognitive needs: No Hearing needs: No Vision needs: Yes Female Reproductive History Menstrual Age of Menarche: 11 Questionnaire PHQ-9 Over the last 2 weeks, how often have you been bothered by any of the following problems? 1. Little interest or pleasure in doing things: not at all 2. Feeling down, depressed, or hopeless: not at all 3. Trouble falling or staying asleep, or sleeping too much: not at all 4. Feeling tired or having little energy: not at all 5. Poor appetite or overeating: not at all 6. Feeling bad about yourself - or that you are a failure or have let yourself or your family down: not at all 7. Trouble concentrating on things, such as reading the newspaper or watching television: not at all 8. Moving or speaking so slowly that other people could have noticed. Or the opposite - being so fidgety or restless that you have been moving around a lot more than usual: not at all 9. Thoughts that you would be better off or of hurting yourself in some way: not at all Total score: 0 Depression Screening Interpretation: Negative Depression Screening Done: Yes 68346 - PHQ-9 Billing: Yes Source: Developed by Drs. Nicko Logan, Anika Wynn, Christopher Rodriguez and colleagues, with an educational yen from [employer]. Thrive Questionnaire Date Thrive assessed: 08/07/24 I am a: Patient What is your living situation today?: I have a steady place to live Within the past 12 months, did the food you bought not last and you didn't have the money to get more?: Never true Within the past 12 months, did you worry whether your food would run out before you got money to buy more?: Never true Do you have trouble getting transportation to medical appointments?: No Do you have trouble paying your heating and electricity bill?: No Do you have trouble taking care of your child, family member or friend?: No Do you have trouble with day-to-day activities such as bathing, preparing meals, shopping, managing finances, etc.?: No Are you currently unemployed and looking for a job?: No Are you interested in more education?: I choose not to answer this question Please select the resources that you would like help with: None Currently or been in a relationship where the following occur: I choose not to answer THRIVE Score: 0 AUDIT C Alcohol Use Questionnaire (AUDIT-C) 1. How often do you have a drink containing alcohol?: Never 3. How often do you have six or more drinks on one occasion?: Never Total Score: 0 CARMEN-7 AMB Questionnaire CARMEN-7 Date CARMEN - 7 assessed: 08/07/24 Feeling nervous, anxious, or on edge: 0 = Not at all Not being able to stop or control worryin = Several days Worrying too much about different things: 0 = Not at all Trouble relaxin = Not at all Being so restless that it is hard to sit still: 0 = Not at all Becoming easily annoyed or irritable: 1 = Several days Feeling afraid as if something awful might happen: 0 = Not at all Total CARMEN-7 score (0-4 normal; 5-9 mild; 10-14 moderate; 15-21 severe): 2 Source: Developed by Drs. Nicko Logan, Anika Wynn, Christopher Rodriguez and colleagues, with an educational yen from [employer]. CARMEN-7 Assessment Billing CARMEN-7 Assessment Tool: CARMEN-7 Assessment 80139 Review of Systems Const All systems reviewed & are unremarkable except as noted in HPI and below Card Reports no additional complaints Resp Reports no additional complaints GI Reports no additional complaints Reports no additional complaints Physical exam (Primary Care) Vital Signs: Last Vital Signs Pulse 85 08/07/24 13:41 BP 124/84 08/07/24 13:41 Pulse Ox 99 08/07/24 13:41 Oxygen Delivery Method Room Air 08/07/24 13:41 BMI result Body Mass Index 31.0 Tobacco/Smoking Status: Tobacco use Status Tobacco use date assessed 08/07/24 08/07/24 13:47 Patient Tobacco Use Status Never used Tobacco 08/07/24 13:47 e-Cigarette/Vaping Use Never Used 08/07/24 13:47 PHQ-9: PHQ-9 Score PHQ-9: Total score 0 08/07/24 13:47 Depression Screening Interpretation: Negative Thrive Assessment: Date of Thrive Assessment Date Thrive assessed 08/07/24 08/07/24 13:47 Currently or been in a relationship where the following occur: I choose not to answer Const General: no acute distress Eyes General: appearance normal, both eyes and all related structures Resp Effort & Inspection: normal respiratory effort Auscultation: clear to auscultation bilaterally Cardio Rhythm: regular rhythm Heart sounds: S1 normal heart sound present and S2 normal heart sound present GI Inspection: Yes normal to inspection Palpation (GI): Soft to palpation Percussion: Yes normal to percussion Auscultation: normal bowel sounds Coding Level of Care Code Est Pt Level 4 (18732) Diagnoses Hyperlipidemia E78.5 Slow transit constipation K59.01 Constipation type: slow transit constipation DM type 2 (diabetes mellitus, type 2) E11.9 Additional Codes CARMEN-7 Assessment Billing - CARMEN-7 Assessment Tool: CARMEN-7 Assessment 68888 ([id number]) Assessment & Plan Assessment & Plan (1) Hyperlipidemia: Code(s): E78.5 - Hyperlipidemia, unspecified Category: Medical Plan: Continue low-cholesterol diet (2) Constipation: Code(s): K59.00 - Constipation, unspecified Category: Medical Qualifiers: Constipation type: slow transit constipation Qualified Code(s): K59.01 - Slow transit constipation Plan: Increasing fiber and fluid intake and physical activity discussed with the patient. She was advised to try Colace and Metamucil and avoid intestinal stimulants such as Senokot or Dulcolax as it will cause slowing of intestinal peristalsis. She will be referred to GI for colonoscopy (3) DM type 2 (diabetes mellitus, type 2): Code(s): E11.9 - Type 2 diabetes mellitus without complications Category: Medical Plan: A1c is 5.9. Continue current medications ADA diet return in 4 months with a fasting labs before Orders: Orders Comprehensive [place]. Panel Fast 4 Months E11.9 - Type 2 diabetes mellitus without complications, E78.5 - Hyperlipidemia, unspecified, K59.01 - Slow transit constipation Hemoglobin A1c 4 Months E11.9 - Type 2 diabetes mellitus without complications, E78.5 - Hyperlipidemia, unspecified, K59.01 - Slow transit constipation Complete Blood Count Auto Diff 4 Months E11.9 - Type 2 diabetes mellitus without complications, E78.5 - Hyperlipidemia, unspecified, K59.01 - Slow transit constipation Lipid Panel 4 Months E11.9 - Type 2 diabetes mellitus without complications, E78.5 - Hyperlipidemia, unspecified, K59.01 - Slow transit constipation Microalbumin, Random (w Creat) 4 Months E11.9 - Type 2 diabetes mellitus without complications, E78.5 - Hyperlipidemia, unspecified, K59.01 - Slow transit constipation
== END 2024-08-07 14:44 | disposition home or self-care (01) ==
PROVIDERS: PCP Internal Medicine; Visit Provider Internal Medicine
DX: E78.5 Hyperlipidemia, unspecified (principal); K59.01 Slow transit constipation; E11.9 Type 2 diabetes mellitus without complications

== ENCOUNTER → 2024-08-07 13:40 | Outpatient (BNVA) | payer OTHER, SELFPAY | PROVIDERS: PCP Internal Medicine; Visit Provider Internal Medicine | DX: E78.5 Hyperlipidemia, unspecified (principal); E11.9 Type 2 diabetes mellitus without complications; K59.01 Slow transit constipation | CPT/HCPCS: 96127; 99212 ==

== ENCOUNTER 2024-10-30 07:52 | Emergency (ER) | payer OTHER, SELFPAY ==
--- NOTE | 2024-10-30 | ECG_ITS ---
Test Reason : SOB Blood Pressure : / mmHG Vent. Rate : 077 BPM Atrial Rate : 077 BPM P-R Int : 160 ms QRS Dur : 066 ms QT Int : 354 ms P-R-T Axes : 044 022 093 degrees QTc Int : 400 ms Normal sinus rhythm Nonspecific T wave abnormality Abnormal ECG When compared with ECG of 08-JUN-2023 14:04, Nonspecific T wave abnormality has replaced inverted T waves in Lateral leads Referred By: Generic ED Physician Electronically Signed By:JORDAN KIDD MD
--- NOTE | ~2024-10-30 | XR_ITS ---
Examination: Soft tissue neck 2 views. CLINICAL INDICATION: Painful swallowing hoarse voice. COMPARISON: None. FINDINGS: There is mild narrowing of subglottic airway could be artifact or edema. There is no radiopaque foreign body seen. The prevertebral soft tissues are normal. XR/XR soft tissue neck IMPRESSION: Mild subglottic narrowing of the airway. Edema versus artifact. No radiopaque foreign body seen. Electronically signed by: David Mckeon MD 10/30/2024 09:10 AM EST
--- NOTE | ~2024-10-30 | XR_ITS ---
Examination: Soft tissue neck 2 views. CLINICAL INDICATION: Painful swallowing hoarse voice. COMPARISON: None. FINDINGS: There is mild narrowing of subglottic airway could be artifact or edema. There is no radiopaque foreign body seen. The prevertebral soft tissues are normal. XR/XR chest 2V IMPRESSION: Mild subglottic narrowing of the airway. Edema versus artifact. No radiopaque foreign body seen. Electronically signed by: David Mckeon MD 10/30/2024 09:10 AM EST
--- NOTE | 2024-10-30 08:08 | ED.GENADULT ---
HPI - General Adult General Chief complaint: Upper Respiratory Symptoms Stated complaint: Cough Sore Throat Chest Discomfort Time Seen by Provider: 10/30/24 08:07 History of Present Illness ED Provider: Emmanuel SHARP narrative: The patient is a 44-year-old woman who has felt unwell for about 5 days. She has had sore throat and a cough. She has had an increasing sense that her voice has gotten weaker and weaker and she has difficulty speaking. No definite shortness of breath. No abdominal pain. No nausea or vomiting. She does not think she has had a fever but she has felt chilled. She is not aware of being in contact with anybody with any viral illnesses or other illnesses. Related Data Previous Rx's ?Medication ?Instructions ?Recorded FreeStyle [place] Lite #1 ea 06/16/22 (blood-glucose meter) empagliflozin 25 mg tablet 25 mg PO DAILY #90 tabs 03/27/24 (Jardiance) clotrimazole 1 % topical cream 1 appl topical BID 2 weeks #30 06/23/24 grams FreeStyle Lite Strips (blood sugar #100 ea 07/29/24 diagnostic) lancets 28 gauge (FreeStyle #100 ea 07/29/24 Lancets) metformin 850 mg tablet 850 mg PO BID #180 tabs 08/04/24 flash glucose sensor (FreeStyle #6 ea 08/07/24 Tad 2 Sensor kit) ibuprofen 400 mg tablet 400 mg PO Q6H PRN pain #14 tabs 10/30/24 ondansetron 4 mg disintegrating 4 mg PO Q6H PRN nausea and 10/30/24 tablet vomiting #10 tabs Allergies Allergy/AdvReac Type Severity Reaction Status Date / Time No Known Allergies Allergy Mild NOT Verified 10/30/24 08:10 [No Known Allergies*] APPLICABLE Review of Systems Review of Systems: Yes all other systems are reviewed and are negative [facility] Past Medical History Medical History Vitamin D deficiency Sigmoid thickening Constipation Anemia Hyperglycemia Hyperlipidemia Sciatica Anxiety Lung nodule seen on imaging study Annual physical exam Surgical History [place] teeth extracted History of appendectomy Family History Family History Father HTN (hypertension) Mother HTN (hypertension) Brother No problems noted. Brother No problems noted. Son No problems noted. Son No problems noted. Daughter No problems noted. Social History Social History Housing: Apartment Alcohol intake: never Patient Tobacco Use Status: Never used Tobacco e-Cigarette/Vaping Use: Never Used service: No Current occupational status: unemployed Gender identity: Female Cognitive needs: No Hearing needs: No Vision needs: Yes Physical Exam ED Vital Signs: Vital Signs - 24 hr 10/30/24 10:52 Temperature 97.9 F Pulse Rate 73 Respiratory Rate 16 Blood Pressure 135/71 Pulse Oximetry 98 Oxygen Delivery Method Room Air BMI result Body Mass Index 32.4 Const Other: The patient is awake and alert. She does not appear in pain or respiratory distress but her voice is extremely quiet and raspy. HENMT Other: Face is symmetrical. Mucous membranes are moist. The posterior pharynx is unremarkable. No erythema or exudate. No trismus. Eyes General: appearance normal, both eyes and all related structures Conjunctivae: conjunctivae normal Pupils: Equal, round and reactive pupils present EOM: EOMs intact bilaterally Neck Other: No stridor. No adenopathy. Resp Effort & Inspection: normal respiratory effort Auscultation: clear to auscultation bilaterally Cardio Rate: regular rate Rhythm: regular rhythm Heart sounds: S1 normal heart sound present and S2 normal heart sound present GI Other: Abdomen is soft and nontender Skin General skin exam: no rashes or lesions noted Neuro Other: The patient is awake and alert with a normal mental status. Cranial nerves are intact although her voice is very quiet. She moves her extremities normally. She has a supple neck. Cranial nerves: Yes Equal, round and reactive pupils present Extrem Other: No peripheral edema Medications Administered Discontinued Medications Generic Name Dose Route Start Last Admin Trade Name Freq PRN Reason Stop Dose Admin Ketorolac Tromethamine 30 mg 10/30/24 08:15 10/30/24 08:30 Ketorolac Tromethamine 30 Mg/Ml Vial IM 10/30/24 08:16 30 mg ONCE ONE Administration Medical Decision Making Medical Decision Making MDM Narrative: The patient presents with sore throat and cough of 4 days' duration and has a very hoarse and hushed voice. Vital signs are unremarkable. She does not appear septic. I think she is describing an upper respiratory infection with voice changes suggestive of laryngitis more than anything more dire. A soft tissue x-ray of the neck shows an unremarkable epiglottis. Chest x-ray is negative. She has tested negative for influenza, RSV, COVID, and strep throat. The patient was advised this seems to be a viral illness causing laryngitis. She will be treated symptomatically. I have sent a prescription for ibuprofen and for ondansetron to her pharmacy. Lab Data Labs: Lab Results 10/30/24 Range/Units 08:24 Influenza Type A (PCR) NEGATIVE (Negative) Influenza Type B (PCR) NEGATIVE (Negative) RSV RNA Qual (PCR) NEGATIVE (Negative) SARS-CoV-2 RNA (RT-PCR) NEGATIVE (Negative) S. pyogenes GrpA MAURY Negative (Negative) Discharge Plan Discharge Clinical Impression: Laryngitis Patient Disposition: Home, Self-Care Instructions: Laryngitis (ED) Additional Instructions: I think you have a viral illness causing a syndrome that we call laryngitis. I think this is a viral illness and I think that antibiotics would be unlikely to be helpful. Please plan on resting and taking it easy for the next few days. You may use ibuprofen as needed for discomfort. You may also take nfwz-tuz-sxnniro acetaminophen (Tylenol) as needed for discomfort as well. A prescription for ondansetron (Zofran) has been sent to your pharmacy as well that you may use as needed for any nausea. Please stay in touch with your regular doctor for additional advice as needed. Return to the emergency room if you feel significantly worse. Prescriptions: New ibuprofen 400 mg tablet 400 mg PO Q6H PRN (Reason: pain) Qty: 14 0RF ondansetron 4 mg tablet,disintegrating 4 mg PO Q6H PRN (Reason: nausea and vomiting) Qty: 10 0RF No Action (DME) blood-glucose meter [FreeStyle [place] Lite] Kit See Rx Instructions .Route Qty: 1 0RF Rx Instructions: As directed to test blood sugar (DME) lancets [FreeStyle Lancets] 28 gauge misc See Rx Instructions .Route Qty: 100 3RF Rx Instructions: test blood sugar once a day (DME) FreeStyle Lite Strips Strip See Rx Instructions .Route Qty: 100 3RF Rx Instructions: test blood sugar once a day metformin 850 mg tablet 850 mg PO BID Qty: 180 1RF (DME) FreeStyle Tad 2 Sensor Kit See Rx Instructions .Route Qty: 6 3RF Rx Instructions: As directed Jardiance 25 mg tablet 25 mg PO DAILY Qty: 90 3RF clotrimazole 1 % cream 1 appl topical BID 14 Days Qty: 30 0RF Referrals: Liza Mosquera MD [Primary Care Provider] - (Laryngitis ) Discharge Date/Time: 10/30/24 11:14 Print Language: Greek
[2024-10-30 08:09] VITALS: BP 149/84; PULSE 78; RESP 16; TEMP 36.6; O2SAT 99; BMI 32.4
[2024-10-30] MEDS: Ketorolac Tromethamine 30 MG/ML VIAL IM (08:30)
[2024-10-30 08:43] LABS: IDNOW Serial# 58CA691E; Strep A Nucleic Acid Negative (Negative)
[2024-10-30 09:47] LABS: Influenza A PCR NEGATIVE (Negative); Influenza B PCR NEGATIVE (Negative); Resp Syncy Virus RNA Qual PCR NEGATIVE (Negative); SARS COV2 PCR INHOUSE NEGATIVE (Negative)
[2024-10-30 10:52] VITALS: BP 135/71; PULSE 73; RESP 16; TEMP 36.6; O2SAT 98
== END 2024-10-30 11:14 | disposition home or self-care (01) ==
PROVIDERS: Emergency Provider Emergency Medicine; PCP Internal Medicine
DX: J04.0 Acute laryngitis (principal); R05.9 Cough, unspecified; R07.89 Other chest pain; J02.9 Acute pharyngitis, unspecified; R50.9 Fever, unspecified; R06.02 Shortness of breath; R94.31 Abnormal electrocardiogram [ECG] [EKG]; Z03.818 Encounter for observation for suspected exposure to other biological agents ruled out
CPT/HCPCS: 0241U; 70360; 71046; 87651; 93005; 96372; 99284; J1885

== ENCOUNTER → 2024-10-30 08:00 | Outpatient (BNV) | payer OTHER, SELFPAY | PROVIDERS: Emergency Provider Emergency Medicine; PCP Internal Medicine; Visit Provider Internal Medicine Cardiovascular Disease | DX: R06.02 Shortness of breath (principal); R94.31 Abnormal electrocardiogram [ECG] [EKG] | CPT/HCPCS: 93010 ==

== ENCOUNTER → 2024-10-30 08:16 | Outpatient (BNV) | payer OTHER, SELFPAY | PROVIDERS: Emergency Provider Emergency Medicine; PCP Internal Medicine; Visit Provider Radiology Diagnostic Radiology | DX: R07.89 Other chest pain (principal); R13.10 Dysphagia, unspecified; R49.0 Dysphonia | CPT/HCPCS: 70360; 71046 ==

== ENCOUNTER 2024-12-26 09:15 | Emergency (ER) | payer OTHER, SELFPAY ==
--- NOTE | ~2024-12-26 | XR_ITS ---
EXAMINATION: XR RIBS, LEFT CLINICAL INFORMATION: cough COMPARISON: October 30, 2024 . TECHNIQUE: 3 views of the left ribs were obtained. FINDINGS: No consolidation, pleural effusion or pneumothorax. There is a 6 mm ovoid shaped peripheral opaque and lucent center abnormality in the periphery of the left hemithorax/inferior left scapula.. Cardiomediastinal silhouette size is normal. There is a skin marker adjacent to an nondeformed nor cortical irregular rate left lower hemithorax. XR/XR ribs LT min 3V w CXR1V IMPRESSION:. No acute rib fracture, left hemithorax. 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 Electronically signed by: Pio Solorio MD 12/26/2024 10:34 AM DENNISE GARCIA
[2024-12-26 09:17] VITALS: BP 146/80; PULSE 88; RESP 20; TEMP 37; O2SAT 99; BMI 31.1
[2024-12-26 10:02] LABS: IDNOW Serial# 6674DD1D; Strep A Nucleic Acid Negative (Negative)
[2024-12-26 10:33] LABS: Influenza A PCR POSITIVE (Negative); Influenza B PCR NEGATIVE (Negative); Resp Syncy Virus RNA Qual PCR NEGATIVE (Negative); SARS COV2 PCR INHOUSE NEGATIVE (Negative)
--- OUTSIDE RECORDS SUMMARY | 2024-12-26 10:40 | XMS_ITS | Clinical Summary ---
Author Organization [facility] Address [address] [place] [address] Care Team Providers Care Career Services Representative Name Role Phone Radha Leal MD Primary Care Provider Unavail able Allergies No known active allergies Medications Medication Sig Dispensed Refills Start Date End Date Status metronidazole (METROGEL VAGINAL) 0.75 % vaginal gel 1 full applicator for 5days at bedtime 1 Tube 0 03/01/2018 Active Active Problems Problem Noted Date Vertigo 07/10/2018 Overview: Chronic, normal head ct in er; referred to ent, believes BPPV and referred for vestibular rehab Subclinical hypothyroidism 04/05/2018 Obesity (BMI 30-39.9) 04/04/2018 Family History Medical History Relation Name Comments Hypertension Brother Hypertension Father CAD Maternal Grandfather CAD Maternal Grandmother Hypertension Mother CAD Paternal Grandfather CAD Paternal Grandmother Relation Name Status Comments Brother Father Maternal Grandfather Maternal Grandmother Mother Paternal Grandfather Paternal Grandmother Social History Tobacco Use Types Packs/Day Years Used Date Smoking Tobacco: Never Smokeless Tobacco: Never Alcohol Use Standard Drinks/Week Comments No 0 (1 standard drink = 0.6 oz pur e alcohol) Sex Assigned at Date Recorded Not on file Last Filed Vital Signs Vital Sign Reading Time Taken Comments Blood Pressure 126/84 06/07/2018 11:50 AM EDT Pulse 72 06/07/2018 11:50 AM EDT Temperature 36.6 ??C (97.8 ??F) 05/30/2018 11:04 AM E DT Respiratory Rate 12 06/07/2018 11:50 AM EDT Oxygen Saturation - - Inhaled Oxygen Concentration - - Weight 85.7 kg (189 lb) 05/30/2018 11:04 AM EDT Height 159.4 cm (5' 2.75 ) 05/30/2018 11:04 AM E DT Body Mass Index 33.75 05/30/2018 11:04 AM EDT Plan of Treatment Health Maintenance Due Date Last Done Comments Covid-19 Vaccine (#1) 03/19/1980 DTAP/TDAP/TD (1 - Tdap) 1998 CERVICAL CANCER SCREENING 2000 BASELINE HEALTH EXAM 40-64 2019 04/04/2018, MAMMOGRAM 2019 CHOLESTEROL SCREENING 04/04/2023 04/04/2018 INFLUENZA (#1) 2024 BMI CHECK/ADVISE 10/29/2024 04/04/2018 DEPRESSION SCREENING/FOLLOWUP 10/29/2024 SOCIAL NEEDS SCREENING 10/29/2024 PNEUMOCOCCAL VACCINE FOR HIG H RISK PATIENTS (#1) 2044 Care Teams Career Services Representative Relationship Specialty Start Date End Date Radha Leal MD PCP - General Internal Medicine 12/03/17
--- OUTSIDE RECORDS SUMMARY | 2024-12-26 10:40 | XMS_ITS | Encounter Summary ---
Author Organization [facility] Address [address] [place] [address] Care Team Providers Care Middleware Administrator Name Role Phone Radha Leal MD Primary Care Provider Unavail able Reason for Visit * Reason Onset Date Comments TEST RESULTS 05/31/2018 result notes Encounter Details Date Type Department Care Team Description 05/31/2018 Telephone Adult Medicine [address] [address] Jessica Menjivar PA-C TEST RESULTS (result notes) Social History Tobacco Use Types Packs/Day Years Used Date Smoking Tobacco: Never Smokeless Tobacco: Never Alcohol Use Standard Drinks/Week Comments No 0 (1 standard drink = 0.6 oz pur e alcohol) Sex Assigned at Date Recorded Not on file documented as of this encounter Miscellaneous Notes * Telephone Encounter - Los Guerrier M.A. - 05/31/2018 3:06 PM EDT Spoke with patient and is aware of results. Please inform the patient her repeat TSH was normal and there is no further follow-up required for this at this time. documented in this encounter Plan of Treatment Not on file documented as of this encounter Visit Diagnoses Not on filedocumented in this encounter Care Teams Middleware Administrator Relationship Specialty Start Date End Date Radha Leal MD PCP - General Internal Medicine 12/03/17 documented as of this encounter
--- OUTSIDE RECORDS SUMMARY | 2024-12-26 10:40 | XMS_ITS | Clinical Summary ---
Author Organization [facility] Address [address] [place] [address] Care Team Providers Care Administrative Processor Name Role Phone Radha Leal MD Primary Care Provider Social History Tobacco Use Types Packs/Day Years Used Date Smoking Tobacco: Never Assessed Comments Unknown Sex and Gender Information Value Date Recorded Sex Assigned at Not on file Legal Sex Female 10:15 AM EST Gender Identity Not on file Sexual Orientation Not on file Plan of Treatment Health Maintenance Due Date Last Done Comments Breast Cancer Screening 1979 DTaP,Tdap,and Td Vaccines (1 - Tdap) 1998 Hepatitis B Vaccines (1 of 3 - 19+ 3-dose series) 1998 Cervical Cancer Screening: P ap Smear 2000 COVID-19 Vaccine (2023-2 5 season) 2024 Influenza Vaccine (#1) 2024 HIB Vaccines Aged Out No longer eligi ble based on patient's age to complete this topic HPV Vaccines Aged Out No longer eligi ble based on patient's age to complete this topic Hepatitis A Vaccines Aged Out No long er eligible based on patient's age to complete this topic IPV Vaccines Aged Out No longer eligi ble based on patient's age to complete this topic MMR Vaccines Aged Out No longer eligi ble based on patient's age to complete this topic Meningococcal ACWY Vaccine Aged Out N o longer eligible based on patient's age to complete this topic Meningococcal B Vacine Aged Out No lo nger eligible based on patient's age to complete this topic Pneumococcal Vaccine: Pediat rics (0 to 5 Years) and At-Risk Patients (6 to 64 Years) Aged Out No longer eligible b ased on patient's age to complete this topic RSV Immunization Patients Un odell 20 months Aged Out No longer eligible b ased on patient's age to complete this topic Varicella Vaccines Aged Out No longer eligible based on patient's age to complete this topic Care Teams Administrative Processor Relationship Specialty Start Date End Date Radha Leal MD PCP - General Internal Medicine 12/03/17
--- OUTSIDE RECORDS SUMMARY | 2024-12-26 10:40 | XMS_ITS | Encounter Summary ---
Author Organization [facility] Address [address] [place] [address] Care Team Providers Care Pull Tab Dealer Name Role Phone Radha Leal MD Primary Care Provider Unavail able Reason for Visit * Reason Onset Date Comments TEST RESULTS 03/01/2018 Encounter Details Date Type Department Care Team Description 03/01/2018 Telephone OBGYN - [facility] [address] [place] [address] Radha Leal MD TEST RESULTS Social History Tobacco Use Types Packs/Day Years Used Date Smoking Tobacco: Never Smokeless Tobacco: Never Alcohol Use Standard Drinks/Week Comments No 0 (1 standard drink = 0.6 oz pur e alcohol) Sex Assigned at Date Recorded Not on file documented as of this encounter Miscellaneous Notes * Telephone Encounter - Kaci Knapp - 03/01/2018 4:55 PM EDT Inform patient: ANY URGENT OR ABNORMAL RESULTS WIILL RESULT IN A CALL BACK TO THE PATIENT ROSELINE. Type of test: :labs Date test was performed: 02/28/2018 Where was the test performed: [facility] Who ordered this test?: Lorie Musa Is the doctor here today?: YES Can the message wait until the doctor returns?: NO IF PATIENT'S PCP IS NOT IN INSTRUCT PATIENT THAT THEY WILL RECEIVE A CALL BACK WHEN THE PCP IS IN THE OFFICE NEXT. documented in this encounter Plan of Treatment Not on file documented as of this encounter Visit Diagnoses Not on filedocumented in this encounter Care Teams Pull Tab Dealer Relationship Specialty Start Date End Date Radha Leal MD PCP - General Internal Medicine 12/03/17 documented as of this encounter
--- NOTE | 2024-12-26 12:04 | ED.URI ---
HPI - URI/Sore Throat General Chief Complaint: Upper Respiratory Symptoms Stated Complaint: fever Time Seen by Provider: 12/26/24 11:58 Source: patient, RN notes reviewed and old records reviewed Mode of arrival: ambulatory History of Present Illness ED Provider: Elsie Gallardo PA-C HPI Narrative: 44-year-old female with a past medical history of HLD, anxiety, sciatica, anemia, presenting to the ED complaining fever, cough, sore throat, myalgias, headache x4 days. Admits recently travel to [place]. Reports left-sided rib pain associated with coughing. Daughter here with similar complaints. Admits was prescribed Z-Srinivas by PCP. denies SOB, pedal edema Related Data Previous Rx's ?Medication ?Instructions ?Recorded FreeStyle Fries Lite #1 ea 06/16/22 (blood-glucose meter) empagliflozin 25 mg tablet 25 mg PO DAILY #90 tabs 03/27/24 (Jardiance) clotrimazole 1 % topical cream 1 appl topical BID 2 weeks #30 06/23/24 grams FreeStyle Lite Strips (blood sugar #100 ea 07/29/24 diagnostic) lancets 28 gauge (FreeStyle #100 ea 07/29/24 Lancets) metformin 850 mg tablet 850 mg PO BID #180 tabs 08/04/24 flash glucose sensor (FreeStyle #6 ea 08/07/24 Tad 2 Sensor kit) ondansetron 4 mg disintegrating 4 mg PO Q6H PRN nausea and 10/30/24 tablet vomiting #10 tabs benzonatate 100 mg capsule 100 mg PO BID PRN cough #20 caps 10/31/24 ibuprofen 400 mg tablet 400 mg PO Q6H PRN pain #30 tabs 11/18/24 azithromycin 250 mg tablet See Rx Instructions PO .COMPLEX #6 11/19/24 tabs Allergies Allergy/AdvReac Type Severity Reaction Status Date / Time No Known Allergies Allergy Mild NOT Verified 12/26/24 09:21 [No Known Allergies*] APPLICABLE Review of Systems Review of Systems: Yes all other systems are reviewed and are negative Constitutional: Constitutional: Reports as per [facility] Past Medical History Attestation statement: The following information was validated with the patient. Source: old records reviewed Medical History Vitamin D deficiency Sigmoid thickening Constipation Anemia Hyperglycemia Hyperlipidemia Sciatica Anxiety Lung nodule seen on imaging study Annual physical exam Surgical History [place] teeth extracted History of appendectomy Family History Family History Father HTN (hypertension) Mother HTN (hypertension) Brother No problems noted. Brother No problems noted. Son No problems noted. Son No problems noted. Daughter No problems noted. Social History Social History Housing: Apartment Alcohol intake: never Patient Tobacco Use Status: Never used Tobacco e-Cigarette/Vaping Use: Never Used Advance Directives: No Advance Directives Information Provided: No Do you have a plan to hurt others: No Plan service: No Current occupational status: unemployed Gender identity: Female Cognitive needs: No Hearing needs: No Vision needs: Yes Physical Exam Vital Signs: Vital Signs: Last Vital Signs Temp 98.6 F 12/26/24 09:17 Pulse 88 12/26/24 09:17 Resp 20 12/26/24 09:17 BP 146/80 H 12/26/24 09:17 Pulse Ox 99 12/26/24 09:17 O2 Del Method Room Air 12/26/24 09:17 BMI result Body Mass Index 31.1 Const: General: cooperative, healthy appearing and no acute distress Orientation/consciousness: patient oriented x3 Limitations: no limitations HEENT: Head: Yes normal to inspection and Yes atraumatic Ears: hearing grossly normal bilaterally, external ears normal, TM's normal bilaterally and mastoids normal General nose exam: Normal external nose present Face and sinus: Yes normal facial exam Mouth: Normal oral and palatal mucosa present and no drooling Throat: Yes posterior oropharynx normal, Yes tonsils normal, Yes uvula midline, No peritonsillar mass, No uvula laterally displaced and No uvular edema Eyes: General: appearance normal, both eyes and all related structures EOM: EOMs intact bilaterally Neck: Neck: Yes normal visual inspection and Yes no meningeal signs Resp: Effort & Inspection: normal respiratory effort, not labored and no respiratory distress Auscultation: clear to auscultation bilaterally, no crackles, no rales, no rhonchi and no wheezes Cardio: Rate: regular rate Heart sounds: S1 normal heart sound present and S2 normal heart sound present Skin: Rashes: no rashes Wounds: no wounds Neuro: General: patient oriented x3, tone normal and no meningeal signs Cranial nerves: Yes CN's II-XII intact bilaterally Gait exam (Neuro): Normal gait present Extrem: General: Yes normal to inspection Course Course Course Narrative: - influenza a positive XR ribs LT min 3V w CXR1V IMPRESSION:. No acute rib fracture, left hemithorax. 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 > abnormality seen on prior imaging. Discussed with patient Results discussed with patient including worrisome signs and symptoms and strict return precautions, and when to return to the emergency department. They verbalized understanding and feel safe for discharge at this time. Medical Decision Making Medical Decision Making [facility] Narrative: 44-year-old female with a past medical history of HLD, anxiety, sciatica, anemia, presenting to the ED complaining fever, cough, sore throat, myalgias, headache x4 days. on exam vital signs stable, NAD, nontoxic appearing, lungs CTA, oropharynx WNL. Concern for viral illness. Rule out pneumonia vs bronchitis. Lower suspicion for ACS/ PE or dissection. Unlikely DVT at this time Plan: Viral testing, CXR Please refer to course for remaining clinical decision making, interpretation of labs/imaging results, and discussions with consultants and/or family members. Differential Diagnosis Differential Diagnoses: The differential diagnosis associated with the presentation includes As above Admission/Observation Consideration of admission/observation: Escalation of care including admission/observation considered Lab Data [facility] Lab Attestation statement: I reviewed the patient's lab results. Labs: Lab Results 12/26/24 Range/Units 09:42 Influenza Type A (PCR) POSITIVE A (Negative) Influenza Type B (PCR) NEGATIVE (Negative) RSV RNA Qual (PCR) NEGATIVE (Negative) SARS-CoV-2 RNA (RT-PCR) NEGATIVE (Negative) S. pyogenes GrpA MAURY Negative (Negative) Independent Interpretation I performed an independent interpretation of an: Plain X-Ray Radiology Impression Discussion of test interpretation with radiology: I have reviewed the radiologist's reading. External Record Review External record reviewed: Inpatient record, Office record, Outpatient record, Prior outpatient labs, Prior outpatient radiology, Primary care record and Outside ED record Tests considered The following testing was considered but not selected: As above Prescription Management I considered prescription management with: Pain Medication, Antiviral and Antibiotic Chronic Conditions Patient?s care impacted by: Other Social Determinants Patient?s care significantly limited by Social Determinants of Health including: Other Social Determinant of Health Discharge Plan Discharge Clinical Impression: Influenza Patient Disposition: Home, Self-Care Instructions: Influenza (DC) Additional Instructions: You have the flu No antibiotics are indicated at this time Make sure you are staying hydrated. Drink plenty of fluids. Rest Alternate Tylenol and Motrin at home as needed for body aches and fever Follow-up with your doctor. If symptoms persist or worsen return to the emergency department *If you are a child & not tolerating liquid or urinating for more than 6 hours, or fevers are uncontrolled with medications at home, return to the emergency department* Prescriptions: No Action (DME) blood-glucose meter [FreeStyle Fries Lite] Kit See Rx Instructions .Route Qty: 1 0RF Rx Instructions: As directed to test blood sugar (DME) lancets [FreeStyle Lancets] 28 gauge misc See Rx Instructions .Route Qty: 100 3RF Rx Instructions: test blood sugar once a day (DME) FreeStyle Lite Strips Strip See Rx Instructions .Route Qty: 100 3RF Rx Instructions: test blood sugar once a day metformin 850 mg tablet 850 mg PO BID Qty: 180 1RF (DME) FreeStyle Tad 2 Sensor Kit See Rx Instructions .Route Qty: 6 3RF Rx Instructions: As directed benzonatate 100 mg capsule 100 mg PO BID PRN (Reason: cough) Qty: 20 0RF ibuprofen 400 mg tablet 400 mg PO Q6H PRN (Reason: pain) Qty: 30 0RF azithromycin 250 mg tablet See Rx Instructions PO .COMPLEX Qty: 6 0RF Rx Instructions: For 250 mg dose pack: take 500 mg today (day 1), then 250 mg for 4 days (days 2-5) PO ondansetron 4 mg tablet,disintegrating 4 mg PO Q6H PRN (Reason: nausea and vomiting) Qty: 10 0RF Jardiance 25 mg tablet 25 mg PO DAILY Qty: 90 3RF clotrimazole 1 % cream 1 appl topical BID 14 Days Qty: 30 0RF Referrals: Liza Mosquera MD [Primary Care Provider] - 1 week Print Language: Qatari
[2024-12-26 12:12] VITALS: BP 146/80; PULSE 88; RESP 20; TEMP 37; O2SAT 99
== END 2024-12-26 12:14 | disposition home or self-care (01) ==
PROVIDERS: Emergency Provider Emergency Medicine; PCP Internal Medicine
DX: J10.1 Influenza due to other identified influenza virus with other respiratory manifestations (principal); R50.9 Fever, unspecified; R07.81 Pleurodynia; R51.9 Headache, unspecified; M79.10 Myalgia, unspecified site; Z03.818 Encounter for observation for suspected exposure to other biological agents ruled out; Z79.899 Other long term (current) drug therapy
CPT/HCPCS: 0241U; 71101; 87651; 99282; 99283

== ENCOUNTER → 2024-12-26 09:23 | Outpatient (BNV) | payer OTHER, SELFPAY | PROVIDERS: PCP Internal Medicine; Visit Provider Radiology Diagnostic Radiology | DX: R05.9 Cough, unspecified (principal); R50.9 Fever, unspecified | CPT/HCPCS: 71101 ==

== ENCOUNTER 2025-02-05 07:51 | Outpatient (REF) | payer OTHER, SELFPAY ==
--- OUTSIDE RECORDS SUMMARY | 2025-02-05 07:56 | XMS_ITS | Clinical Summary ---
Author Organization [facility] it[facility] Address [address] [place] [address] Care Team Providers Care Supervisor Cloth Winding Name Role Phone Radha Leal MD Primary Care Provider [phone] Social History Tobacco Use Types Packs/Day Years [...] Vaccine (2023-2 5 season) 2024 Influenza Vaccine (Season Ended) 2025 HIB Vaccines Aged Out No longer eligi [...] age to complete this topic Meningococcal B Vaccine Aged Out No l onger eligible based on patient's age to complete [...] age to complete this topic Care Teams Supervisor Cloth Winding Relationship Specialty Start Date End Date Radha Leal MD PCP - General Internal Medicine 12/03/17
[2025-02-05 10:11] LABS: MANUAL DIFF FLAG NO
[2025-02-05 10:18] LABS: Basophils Absolute Auto 0.1 X10*3/uL (0.0-0.2); Basophils Percent Auto 0.7 % (0-2); Eosinophils Absolute Auto 0.1 X10*3/uL (0.0-0.4); Eosinophils Percent Auto 1.3 % (0-4); Hematocrit 30.8 % (37.0-47.0); Imm Gran Abs Auto 0.03 X10*3/uL (0.00-0.03); Imm Gran Pct Auto 0.4 % (0.0-0.4); Lymphocytes Absolute Auto 2.3 X10*3/uL (1.2-4.9); Lymphocytes Percent Auto 33.6 % (20-40); Mean Corpuscular HGB Conc 29.2 g/dl (31.0-35.0); Mean Corpuscular Hemoglobin 18.3 pg (27.0-33.0); Mean Platelet Volume 9.8 fL (9.4-12.3); Monocytes Absolute Auto 0.4 X10*3/uL (0.1-1.2); Monocytes Percent Auto 6.5 % (2-11); Neutrophils Absolute Auto 3.9 x10*3/uL (2.0-8.3); Neutrophils Percent Auto 57.5 % (45-73); Platelet Count 465 X10*3/uL (160-400); Red Blood Count 4.93 X10*6/uL (4.20-5.50); Red Cell Distribution Width 21.3 % (11.0-16.0); White Blood Count 6.8 X10*3/uL (4.8-10.8)
[2025-02-05 10:28] LABS: Mean Corpuscular Volume 62.5 fL (80.0-98.0)
[2025-02-05 10:29] LABS: Estimated Average Glucose 143 mg/dL; Hemoglobin A1C 119.9205 umol/L; Hemoglobin A1c % 6.6 % (<6.0); Total Hemoglobin (HGBA1C) 2440.7806 umol/L
[2025-02-05 10:31] LABS: Albumin Level 3.9 g/dL (3.5-5.0); Alkaline Phosphatase 112 U/L (39-117); Anion Gap 12 (12-20); Aspartate Amino Transferase 25 U/L (5-31); Bilirubin Total 0.3 mg/dL (0.0-1.0); Blood Urea Nitrogen 12 mg/dL (9-16); Calcium 9.2 mg/dL (8.4-10.2); Carbon Dioxide 23 mmol/L (22-29); Chloride 110 mmol/L (96-108); Cholesterol 196 mg/dL (<200); Estimated Glomerular Filt Rate > 60; Glucose Fasting 125 mg/dL (60-99); HDL Cholesterol 44 mg/dL (>40); LDL Cholesterol Calculated 127 mg/dL (<100); Potassium 4.1 mmol/L (3.3-5.1); Sodium 141 mmol/L (135-145); Total Protein 7.3 g/dL (6.5-8.0); Triglycerides 128 mg/dL (<150)
[2025-02-05 10:57] LABS: Alanine Aminotransferase 23 U/L (0-31)
[2025-02-05 11:25] LABS: Creatinine Urine 162.49 mg/dL; Microalbum/Creatinine Ratio Ur 6.7 ug/mg cr (<30)
== END 2025-02-05 07:52 | disposition home or self-care (01) ==
LOC: HO.HMGCLDS 07:51
PROVIDERS: PCP Internal Medicine; Visit Provider Internal Medicine
DX: E11.9 Type 2 diabetes mellitus without complications (principal); K59.01 Slow transit constipation; E78.5 Hyperlipidemia, unspecified
CPT/HCPCS: 36415; 80053; 80061; 82043; 82570; 83036; 85025

== ENCOUNTER 2025-02-06 09:32 | Outpatient (REF) | payer OTHER, SELFPAY ==
--- NOTE | ~2025-02-06 | XR_ITS ---
EXAMINATION: XR ABDOMEN KUB CLINICAL INDICATION: R10.9 - Unspecified abdominal pain COMPARISON: None available. Correlation made with CT abdomen and pelvis 01/21/2024. TECHNIQUE: AP view of the abdomen. FINDINGS: Bowel gas pattern is normal/nonspecific. There is no focally dilated loop. There is moderate fecal residue seen throughout the right hemicolon. No organomegaly or abnormal soft tissue calcifications. No large abdominal mass. No indirect evidence of free air. Lung bases appear clear. No suspicious osseous findings. Mild degenerative changes in both hip joints. XR/XR KUB IMPRESSION: No acute findings on abdominal radiograph. Electronically signed by: Ruben Garcia MD 02/06/2025 11:29 AM EDT
--- OUTSIDE RECORDS SUMMARY | 2025-02-06 11:31 | XMS_ITS | Clinical Summary ---
Author Organization [facility] Address [address] [place] [address] Care Team Providers Care Jewel Waxer Name Role Phone Radha Leal MD Primary [...] 04/04/2018, MAMMOGRAM 2019 CHOLESTEROL SCREENING 04/04/2023 04/04/2018 BMI CHECK/ADVISE 10/29/2024 04/04/2018 DEPRESSION SCREENING/FOLLOWUP 10/29/2024 SOCIAL NEEDS SCREENING 10/29/2024 INFLUENZA (Season Ended) 2025 PNEUMOCOCCAL VACCINE FOR HIG H RISK PATIENTS (#1) 2044 Care Teams Jewel Waxer Relationship Specialty Start Date End Date Radha Leal MD PCP - General Internal Medicine 12/03/17
--- OUTSIDE RECORDS SUMMARY | 2025-02-06 11:31 | XMS_ITS | Clinical Summary ---
Author Organization [facility] ity Address [address] [place] [address] Care Team Providers Care Composition Stone Applicator Name Role Phone Radha Leal MD Primary [...] age to complete this topic Care Teams Composition Stone Applicator Relationship Specialty Start Date End Date Radha Leal MD PCP - General Internal Medicine 12/03/17
--- OUTSIDE RECORDS SUMMARY | 2025-02-06 11:31 | XMS_ITS | Encounter Summary ---
Author Organization [facility] Address [facility] [place] [address] Care Team Providers Care Global Climate Change Analyst Name Role Phone Radha Leal MD Primary Care Provider Unavail able Encounter Details Date Type Department Care Team Description 07/10/2018 Hypo Splasher Report Medical Records [address] [place] [id number] Roderick Guillory MD Social History Tobacco Use Types Packs/Day Years Used Date Smoking Tobacco: Never Smokeless Tobacco: Never Alcohol Use Standard Drinks/Week Comments No 0 (1 standard drink = 0.6 oz pur e alcohol) Sex Assigned at Date Recorded Not on file documented as of this encounter Plan of Treatment Not on file documented as of this encounter Visit Diagnoses Not on filedocumented in this encounter Care Teams Global Climate Change Analyst Relationship Specialty Start Date End Date Radha Leal MD PCP - General Internal Medicine 12/03/17 documented as of this encounter
== END 2025-02-06 09:33 | disposition home or self-care (01) ==
LOC: HO.HMGCX 09:32
PROVIDERS: PCP Internal Medicine; Visit Provider Internal Medicine
DX: Z00.00 Encounter for general adult medical examination without abnormal findings (principal); R10.9 Unspecified abdominal pain; E11.9 Type 2 diabetes mellitus without complications; E78.5 Hyperlipidemia, unspecified; D64.9 Anemia, unspecified
CPT/HCPCS: 74018; 81003; 81025; 87086; 96127; 99396

== ENCOUNTER 2025-02-06 09:32 | Outpatient (AMB) | payer OTHER, SELFPAY ==
[2025-02-06 09:40] VITALS: BP 135/80; PULSE 59; RESP 18; TEMP 36.7; O2SAT 100; BMI 31.7
--- NOTE | 2025-02-06 09:40 | A.OFFPC_ITS ---
Vital Signs 02/06/25 09:40 Height 5 ft 3 in Weight 179 lb BMI 31.7 BP 135/80 Blood Pressure Location Rt brachial Position Sitting Respiration 18 Pulse 59 Temp 98.0 F Temp Source Oral Pulse Oximetry (%) 100 Oxygen Delivery Method Room Air Intake Visit Reasons: PE Intake Note: Pt is here today for her PE Allergies No Known Allergies [No Known Allergies*] Allergy (Mild, Verified 02/06/25 09:40) NOT APPLICABLE Medication List - Last Reconciled 02/06/25 by Liza Mosquera MD empagliflozin (Jardiance) 25 mg PO DAILY flash glucose sensor (FreeStyle Tad 2 Sensor kit) As directed FreeStyle [place] Lite (blood-glucose meter) As directed to test blood sugar NS FreeStyle Lite Strips (blood sugar diagnostic) test blood sugar once a day NS lancets (FreeStyle Lancets) test blood sugar once a day metformin 850 mg PO BID pravastatin 20 mg PO DAILY Tobacco use date assessed: 02/06/25 Dental Screening Dental Screen Date: 02/06/25 Did you have a dental visit in the last 12 months?: Yes Did you have a dental problem in the last 6 months where you did not have access to dental care?: Yes Was dental information given to patient?: Patient has dentist HPI PE HPI Details Patient presents for physical. She complains of left flank pain for 2 weeks positional not on and off occasionally sharp. Patient reports urinary burning but no hematuria abdominal pain nausea vomiting fever chills. She has stopped taking Jardiance a few months ago and has not been compliant with ADA diet while visiting in [place] last month. [facility] Medical History Vitamin D deficiency Sigmoid thickening Constipation Anemia Hyperglycemia Hyperlipidemia Sciatica Anxiety Lung nodule seen on imaging study Annual physical exam Surgical History [place] teeth extracted History of appendectomy Family History Father HTN (hypertension) Mother HTN (hypertension) Brother No problems noted. Brother No problems noted. Son No problems noted. Son No problems noted. Daughter No problems noted. Social History Housing: Apartment Alcohol intake: never Patient Tobacco Use Status: Never used Tobacco e-Cigarette/Vaping Use: Never Used service: No Current occupational status: unemployed Gender identity: Female Cognitive needs: No Hearing needs: No Vision needs: Yes Female Reproductive History Menstrual Age of Menarche: 11 Questionnaire PHQ-9 Over the last 2 weeks, how often have you been bothered by any of the following problems? 1. Little interest or pleasure in doing things: not at all 2. Feeling down, depressed, or hopeless: not at all 3. Trouble falling or staying asleep, or sleeping too much: several days 4. Feeling tired or having little energy: several days 5. Poor appetite or overeating: not at all 6. Feeling bad about yourself - or that you are a failure or have let yourself or your family down: not at all 7. Trouble concentrating on things, such as reading the newspaper or watching television: not at all 8. Moving or speaking so slowly that other people could have noticed. Or the opposite - being so fidgety or restless that you have been moving around a lot more than usual: not at all 9. Thoughts that you would be better off or of hurting yourself in some way: not at all Total score: 2 Depression Screening Interpretation: Negative Depression Screening Done: Yes 01625 - PHQ-9 Billing: Yes Source: Developed by Drs. Nicko Logan, Anika Wynn, Christopher Rodriguez and colleagues, with an educational yen from [employer]. Thrive Questionnaire Date Thrive assessed: 02/06/25 I am a: Patient What is your living situation today?: I have a steady place to live Within the past 12 months, did the food you bought not last and you didn't have the money to get more?: Never true Within the past 12 months, did you worry whether your food would run out before you got money to buy more?: Never true Do you have trouble paying for medicines?: No Do you have trouble getting transportation to medical appointments?: No Do you have trouble paying your heating and electricity bill?: No Do you have trouble taking care of your child, family member or friend?: No Do you have trouble with day-to-day activities such as bathing, preparing meals, shopping, managing finances, etc.?: No Are you currently unemployed and looking for a job?: Yes Are you interested in more education?: No Please select the resources that you would like help with: None Currently or been in a relationship where the following occur: No concerns reported THRIVE Score: 0 AUDIT C Alcohol Use Questionnaire (AUDIT-C) 1. How often do you have a drink containing alcohol?: Never 3. How often do you have six or more drinks on one occasion?: Never Total Score: 0 CARMEN-7 AMB Questionnaire CARMEN-7 Date CARMEN - 7 assessed: 02/06/25 Feeling nervous, anxious, or on edge: 0 = Not at all Not being able to stop or control worryin = Not at all Worrying too much about different things: 0 = Not at all Trouble relaxin = Not at all Being so restless that it is hard to sit still: 0 = Not at all Becoming easily annoyed or irritable: 0 = Not at all Feeling afraid as if something awful might happen: 0 = Not at all Total CARMEN-7 score (0-4 normal; 5-9 mild; 10-14 moderate; 15-21 severe): 0 Source: Developed by Drs. Nicko Logan, Anika Wynn, Christopher Rodriguez and colleagues, with an educational yen from [employer]. Review of Systems Const All systems reviewed & are unremarkable except as noted in HPI and below Eyes Reports no additional complaints ENT Reports no additional complaints Card Reports no additional complaints Resp Reports no additional complaints GI Reports no additional complaints Reports no additional complaints Physical exam (Primary Care) Vital Signs: Last Vital Signs Temp 98.0 F 02/06/25 09:40 Pulse 59 02/06/25 09:40 Resp 18 02/06/25 09:40 BP 140/80 H 02/06/25 09:40 Pulse Ox 100 02/06/25 09:40 Oxygen Delivery Method Room Air 02/06/25 09:40 BMI result Body Mass Index 31.7 Tobacco/Smoking Status: Tobacco use Status Tobacco use date assessed 02/06/25 02/06/25 09:43 Patient Tobacco Use Status Never used Tobacco 02/06/25 09:41 e-Cigarette/Vaping Use Never Used 02/06/25 09:41 PHQ-9: PHQ-9 Score PHQ-9: Total score 2 02/06/25 10:23 Depression Screening Interpretation: Negative Thrive Assessment: Date of Thrive Assessment Date Thrive assessed 02/06/25 02/06/25 09:54 Currently or been in a relationship where the following occur: No concerns reported Const General: no acute distress [facility] Head: Yes normal to inspection General nose exam: Normal external nose present Face and sinus: Yes normal facial exam Mouth: Normal oral and palatal mucosa present Eyes General: appearance normal, both eyes and all related structures Neck Neck: Yes no lymphadenopathy and Yes supple Resp Effort & Inspection: normal respiratory effort Auscultation: clear to auscultation bilaterally Cardio Rhythm: regular rhythm Heart sounds: S1 normal heart sound present and S2 normal heart sound present GI Inspection: Yes normal to inspection Palpation (GI): Soft to palpation Percussion: Yes normal to percussion Auscultation: normal bowel sounds Back/Spine/Pelvis Other: Palpable tenderness over left lower lumbar region, straight leg rising 90 degrees bilaterally Results AMB Urinalysis, Automated UA Leukoctes 0 Curt/uL Last Edit by Haydee Bates CMA on 02/06/25 10:29 UA Nitrite Negative Last Edit by Haydee Bates CMA on 02/06/25 10:29 UA Urobilinogen 0.2 mg/dL Last Edit by Haydee Bates CMA on 02/06/25 10:29 UA Protein 0 mg/dL Last Edit by Haydee Bates CMA on 02/06/25 10:29 UA pH 6.0 Last Edit by Haydee Bates CMA on 02/06/25 10:29 UA Blood 0 Misha/uL Last Edit by Haydee Bates CMA on 02/06/25 10:29 UA Specific [place] 1.015 Last Edit by Haydee Bates CMA on 02/06/25 10:29 UA Ketone Negative Last Edit by Haydee Bates CMA on 02/06/25 10:29 UA Bilirubin 0 mg/dL Last Edit by Haydee Bates CMA on 02/06/25 10:29 UA Glucose 0 mg/dL Last Edit by Haydee Bates CMA on 02/06/25 10:29 AMB Test Urine AMB Test Urine Negative Last Edit by Haydee Bates CMA on 10:38 Results Reviewed Results Reviewed: Laboratory Last Values Urine pH (Auto) 6.0 02/06/25 10:20 Specific [place] (Auto) 1.015 02/06/25 10:20 Urine Protein (Auto) 0 mg/dL 02/06/25 10:20 Glucose (UA)(Auto) 0 mg/dL 02/06/25 10:20 Urine Ketones (Auto) Negative 02/06/25 10:20 Urine Blood (Auto) 0 Misha/uL 02/06/25 10:20 Urine Nitrite (Auto) Negative 02/06/25 10:20 Urine Bilirubin (Auto) 0 mg/dL 02/06/25 10:20 Urine Urobilinogen (Auto) 0.2 mg/dL 02/06/25 10:20 Leukocyte Esterase (Auto) 0 Curt/uL 02/06/25 10:20 Coding Level of Care Code Est Pt Prev Care 40-64y(20195) Diagnoses Left flank pain R10.9 DM type 2 (diabetes mellitus, type 2) E11.9 Hyperlipidemia E78.5 Anemia D64.9 Annual physical exam Z00.00 Additional Codes PHQ-9 - 35695 - PHQ-9 Billing: Yes ([id number]) Assessment & Plan Assessment & Plan (1) Left flank pain: Code(s): R10.9 - Unspecified abdominal pain Category: Medical Plan: UA was negative urine culture will be checked. KUB will be checked to rule out nephrolithiasis. Meloxicam 15 mg daily is prescribed and Cipro 250 twice a day pending urine culture (2) DM type 2 (diabetes mellitus, type 2): Code(s): E11.9 - Type 2 diabetes mellitus without complications Category: Medical Plan: A1c is 6.6, ADA diet increase exercise weight loss discussed with the patient she will restart Jardiance and continue metformin. Patient will follow-up in 3 months. Lisinopril 10 mg daily will be started for borderline elevated blood pressure (3) Hyperlipidemia: Code(s): E78.5 - Hyperlipidemia, unspecified Category: Medical Plan: Continue low-cholesterol diet start pravastatin 20 mg a day (4) Anemia: Comment: Iron deficiency due to menorrhagia Code(s): D64.9 - Anemia, unspecified Category: Medical Plan: Patient was advised to restart iron supplement 3 times a week CBC and iron studies will be checked in 3 months (5) Annual physical exam: Code(s): Z00.00 - Encounter for general adult medical examination without abnormal findings Category: Medical Plan: Well-balanced diet regular physical activity weight loss discussed with the patient she is up-to-date with the Pap smear. Patient will call to schedule an appointment for mammogram and she was referred to GI for colonoscopy Orders: Orders Urine Culture Today N30.00 - Acute cystitis without hematuria, R10.9 - Unspecified abdominal pain XR IVP w KUB Today R10.9 - Unspecified abdominal pain AMB Urinalysis Automated Today Z13.9 - Encounter for screening, unspecified Comprehensive [place]. Panel Fast 3 Months E11.9 - Type 2 diabetes mellitus without complications, E78.5 - Hyperlipidemia, unspecified Complete Blood Count Auto Diff 3 Months E11.9 - Type 2 diabetes mellitus without complications, E78.5 - Hyperlipidemia, unspecified Hemoglobin A1c 3 Months E11.9 - Type 2 diabetes mellitus without complications, E78.5 - Hyperlipidemia, unspecified IRON PROFILE 3 Months E11.9 - Type 2 diabetes mellitus without complications, E78.5 - Hyperlipidemia, unspecified Vitamin B12 and Folate 3 Months E11.9 - Type 2 diabetes mellitus without complications, E78.5 - Hyperlipidemia, unspecified Lipid Panel 3 Months E11.9 - Type 2 diabetes mellitus without complications, E78.5 - Hyperlipidemia, unspecified Microalbumin, Random (w Creat) 3 Months E11.9 - Type 2 diabetes mellitus without complications, E78.5 - Hyperlipidemia, unspecified AMB HCG Urine Test Today Z32.02 - Encounter for test, resul t negative Medications: New pravastatin 20 mg PO DAILY 90 tabs 3RF ciprofloxacin HCl 250 mg PO BID 14 tabs 0RF meloxicam 15 mg PO DAILY 14 tabs 0RF Refilled empagliflozin (Jardiance) 25 mg PO DAILY 90 tabs 3RF
--- OUTSIDE RECORDS SUMMARY | 2025-02-06 10:01 | XMS_ITS | Clinical Summary ---
Author Organization [facility] ity Address [address] [place] [address] Care Team Providers Care Truck Driver Helper Name Role Phone Radha Leal MD Primary Care Provider [phone] Social History Tobacco Use Types Packs/Day Years [...] age to complete this topic Care Teams Truck Driver Helper Relationship Specialty Start Date End Date Radha Leal MD PCP - General Internal Medicine 12/03/17
== END 2025-02-06 10:43 | disposition home or self-care (01) ==
LOC: HO.HMCC 09:33
PROVIDERS: PCP Internal Medicine; Visit Provider Internal Medicine
DX: R10.9 Unspecified abdominal pain (principal); E11.9 Type 2 diabetes mellitus without complications; E78.5 Hyperlipidemia, unspecified; D64.9 Anemia, unspecified; Z00.00 Encounter for general adult medical examination without abnormal findings; Z13.9 Encounter for screening, unspecified; Z32.02 Encounter for pregnancy test, result negative

== ENCOUNTER → 2025-02-06 10:55 | Outpatient (BNV) | payer OTHER, SELFPAY | PROVIDERS: PCP Internal Medicine; Visit Provider Radiology Diagnostic Radiology | DX: R10.9 Unspecified abdominal pain (principal) | CPT/HCPCS: 74018 ==

== ENCOUNTER 2025-05-04 18:43 | Emergency (ER) | payer OTHER, SELFPAY ==
--- NOTE | ~2025-05-04 | CT_ITS ---
CLINICAL HISTORY: severe posterior H A, HTN. dizziness CT head without contrast Comparison: None provided Findings: No intra-axial mass, midline shift, hydrocephalus, or acute hemorrhage. No significant atrophy-like change or white matter disease. The visualized paranasal sinuses and mastoid air cells are normal. The orbits are unremarkable. No skull fracture. IMPRESSION: 1. No acute intracranial findings. This document has been electronically signed by: Janell Balderas MD on 05/04/2025 21:44:42
[2025-05-04 19:00] VITALS: BP 203/73; PULSE 72; RESP 16; TEMP 36.8; O2SAT 97; BMI 31.7
--- NOTE | 2025-05-04 19:00 | ED.GENADULT ---
HPI - General Adult General Chief complaint: Headache Stated complaint: ?High blood pressure Related Data Previous Rx's ?Medication ?Instructions ?Recorded FreeStyle [place] Lite #1 ea 06/16/22 (blood-glucose meter) FreeStyle Lite Strips (blood sugar #100 ea 07/29/24 diagnostic) lancets 28 gauge (FreeStyle #100 ea 07/29/24 Lancets) flash glucose sensor (FreeStyle #6 ea 08/07/24 Tad 2 Sensor kit) ciprofloxacin HCl 250 mg tablet 250 mg PO BID #14 tabs 02/06/25 empagliflozin 25 mg tablet 25 mg PO DAILY #90 tabs 02/06/25 (Jardiance) meloxicam 15 mg tablet 15 mg PO DAILY #14 tabs 02/06/25 pravastatin 20 mg tablet 20 mg PO DAILY #90 tabs 02/06/25 metformin 850 mg tablet 850 mg PO BID #180 tabs 02/08/25 Allergies Allergy/AdvReac Type Severity Reaction Status Date / Time No Known Allergies (No Known Allergy Mild NOT Verified 05/04/25 19:02 Allergies*) APPLICABLE [facility] Past Medical History Medical History Vitamin D deficiency Sigmoid thickening Constipation Anemia Hyperglycemia Hyperlipidemia Sciatica Anxiety Lung nodule seen on imaging study Annual physical exam Surgical History [place] teeth extracted History of appendectomy Family History Family History Father HTN (hypertension) Mother HTN (hypertension) Brother No problems noted. Brother No problems noted. Son No problems noted. Son No problems noted. Daughter No problems noted. Social History Social History Housing: Apartment Alcohol intake: never Patient Tobacco Use Status: Never used Tobacco e-Cigarette/Vaping Use: Never Used Advance Directives: No Advance Directives Information Provided: No Do you have a plan to hurt others: No Plan service: No Current occupational status: unemployed Gender identity: Female Cognitive needs: No Hearing needs: No Vision needs: Yes Physical Exam ED Vital Signs: Vital Signs - 24 hr 05/04/25 19:00 05/04/25 20:09 Temperature 98.2 F Pulse Rate 72 68 Respiratory Rate 16 Blood Pressure 203/73 H 186/84 H Pulse Oximetry 97 Oxygen Delivery Method Room Air BMI result Body Mass Index 31.7 Course Course Course Narrative: This is an RME performed by Gary Isbell CNP: Additional HPI, ROS, PE not included below will be deferred to primary provider. Patient is a 44-year-old female who presents emergency department for evaluation. Reports 45 minutes prior to arrival she was lying on the couch when she had sudden onset of a posterior headache, severe blasting pain , pain to the bilateral shoulders, associated dizziness, weakness, numbness and tingling to the bilateral toes, numbness to the left arm without chest pain. Reports that she does not have hypertension is not on any antihypertensive medications but she checked her blood pressure at home and it was elevated at 185/108. Denies history of migraines/headaches. Exam: Arrives in the ED with blood pressure of 203/73. No focal neurological deficits. Steady gait. A&Ox3 Plan: Serum labs, head CT, ECG Reevaluation(s) Reevaluation #1: LWCT Medical Decision Making Lab Data 05/04/25 19:34 05/04/25 20:38 Labs: Lab Results 05/04/25 05/04/25 05/04/25 Range/Units 19:34 19:38 20:38 WBC 9.7 (4.8-10.8) X10*3/uL RBC 4.89 (4.20-5.50) X10*6/uL Hgb 9.0 L (12.0-16.0) g/dl Hct 30.2 L (37.0-47.0) % MCV 61.8 L (80.0-98.0) fL MCH 18.4 L (27.0-33.0) pg MCHC 29.8 L (31.0-35.0) g/dl RDW 20.8 H (11.0-16.0) % Plt Count 415 H (160-400) X10*3/uL MPV 9.9 (9.4-12.3) fL Immature Gran % (Auto) 0.4 (0.0-0.4) % Neut % (Auto) 68.3 (45-73) % Lymph % (Auto) 24.0 (20-40) % [place] % (Auto) 5.7 (2-11) % Eos % (Auto) 1.0 (0-4) % Baso % (Auto) 0.6 (0-2) % Lymph # (Auto) 2.3 (1.2-4.9) X10*3/uL [place] # (Auto) 0.6 (0.1-1.2) X10*3/uL Eos # (Auto) 0.1 (0.0-0.4) X10*3/uL Baso # (Auto) 0.1 (0.0-0.2) X10*3/uL Abs Immat Gran (auto) 0.04 H (0.00-0.03) X10*3/uL Absolute Neuts (auto) 6.6 (2.0-8.3) x10*3/uL Absolute Nucleated RBC 0.000 (0.0-0.012) X10*3/uL Nucleated RBC % (auto) 0.0 (0.0-0.2) /100WBC Smear Tech's Comments VERIFIED Sodium 140 (135-145) mmol/L Potassium 3.7 (3.3-5.1) mmol/L Chloride 109 H (96-108) mmol/L Carbon Dioxide 23 (22-29) mmol/L Anion Gap 12 (12-20) BUN 8 L (9-16) mg/dL Creatinine 0.69 (0.5-1.4) mg/dL Estim Creat Clear Calc 103.9 Estimated GFR > 60 Random Glucose 122 H (60-115) mg/dL Calcium 8.7 (8.4-10.2) mg/dL Magnesium 2.2 (1.6-2.6) mg/dL Total Bilirubin 0.2 (0.0-1.0) mg/dL AST 25 (5-31) U/L ALT 18 (0-31) U/L Alkaline Phosphatase 102 (39-117) U/L Troponin I High Sens < 2.7 (<3.5-17.0) ng/L Total Protein 7.5 (6.5-8.0) g/dL Albumin 4.2 (3.5-5.0) g/dL Lipase 47 (8-78) U/L Urine Color Yellow Urine Appearance Clear Urine pH 8.0 (5.0-9.0) Ur Specific [place] 1.010 (1.005-1.025) Urine Protein Negative (Neg-Trace) mg/dL Urine Glucose (UA) Negative (Negative) mg/dL Urine Ketones Negative (Negative) mg/dL Urine Blood Negative (Negative) Urine Nitrite Negative (Negative) Ur Leukocyte Esterase Negative (Negative) Discharge Plan Discharge Clinical Impression: Headache, Elevated blood pressure reading Patient Disposition: Left W/O Completing Treatment Prescriptions: No Action (DME) blood-glucose meter [FreeStyle [place] Lite] Kit See Rx Instructions .Route Qty: 1 0RF Rx Instructions: As directed to test blood sugar (DME) lancets [FreeStyle Lancets] 28 gauge misc See Rx Instructions .Route Qty: 100 3RF Rx Instructions: test blood sugar once a day (DME) FreeStyle Lite Strips Strip See Rx Instructions .Route Qty: 100 3RF Rx Instructions: test blood sugar once a day (DME) FreeStyle Tad 2 Sensor Kit See Rx Instructions .Route Qty: 6 3RF Rx Instructions: As directed metformin 850 mg tablet 850 mg PO BID Qty: 180 1RF Jardiance 25 mg tablet 25 mg PO DAILY Qty: 90 3RF pravastatin 20 mg tablet 20 mg PO DAILY Qty: 90 3RF ciprofloxacin HCl 250 mg tablet 250 mg PO BID Qty: 14 0RF meloxicam 15 mg tablet 15 mg PO DAILY Qty: 14 0RF Discharge Date/Time: 05/05/25 02:24
--- NOTE | 2025-05-04 19:05 | ECG_ITS ---
Test Reason : DIZZINESS Blood Pressure : */* mmHG Vent. Rate : 70 BPM Atrial Rate : 70 BPM P-R Int : 150 ms QRS Dur : 76 ms QT Int : 392 ms P-R-T Axes : 39 27 88 degrees QTcB Int : 423 ms Normal sinus rhythm Low voltage QRS Borderline ECG When compared with ECG of 30-Oct-2024 08:00, No significant change was found Referred By: Naima Isbell Electronically Signed By: Kevin Hernandez
[2025-05-04 19:49] LABS: Hemoglobin 9.0 g/dl (12.0-16.0); Imm Gran Abs Auto 0.04 X10*3/uL (0.00-0.03); Imm Gran Pct Auto 0.4 % (0.0-0.4); MANUAL DIFF FLAG SCAN; NRBC Abs Auto 0.000 X10*3/uL (0.0-0.012); NRBC Pct Auto 0.0 /100WBC (0.0-0.2); SCAN SMEAR FLAG 1
[2025-05-04 19:51] LABS: Hematocrit 30.2 % (37.0-47.0); Lymphocytes Absolute Auto 2.3 X10*3/uL (1.2-4.9); Mean Corpuscular HGB Conc 29.8 g/dl (31.0-35.0); Mean Corpuscular Hemoglobin 18.4 pg (27.0-33.0); Platelet Count 415 X10*3/uL (160-400); Red Blood Count 4.89 X10*6/uL (4.20-5.50); White Blood Count 9.7 X10*3/uL (4.8-10.8)
[2025-05-04 19:52] LABS: Appearance Urine Clear; Glucose Urine UA Negative (Negative); PH 8.0 (5.0-9.0); Specific Gravity - Urine 1.010 (1.005-1.025)
[2025-05-04 20:09] VITALS: BP 186/84; PULSE 68
[2025-05-04 20:34] LABS: Mean Corpuscular Volume 61.8 fL (80.0-98.0); PLT ABN DIST 1
[2025-05-04 21:00] LABS: Alanine Aminotransferase 18 U/L (0-31); Albumin Level 4.2 g/dL (3.5-5.0); Alkaline Phosphatase 102 U/L (39-117); Anion Gap 12 (12-20); Aspartate Amino Transferase 25 U/L (5-31); Blood Urea Nitrogen 8 mg/dL (9-16); Calcium 8.7 mg/dL (8.4-10.2); Carbon Dioxide 23 mmol/L (22-29); Chloride 109 mmol/L (96-108); Creatinine Clr Calc Pharmacy 103.9; Estimated Glomerular Filt Rate > 60; Lipase 47 U/L (8-78); Magnesium 2.2 mg/dL (1.6-2.6); Potassium 3.7 mmol/L (3.3-5.1); Sodium 140 mmol/L (135-145); Total Protein 7.5 g/dL (6.5-8.0)
[2025-05-04 21:06] LABS: Troponin-I High Sensitivity < 2.7 ng/L (<3.5-17.0)
== END 2025-05-05 02:24 | disposition left against medical advice (07) ==
PROVIDERS: Nurse Practitioner Family; Emergency Provider Emergency Medicine; PCP Internal Medicine
DX: R51.9 Headache, unspecified (principal); R03.0 Elevated blood-pressure reading, without diagnosis of hypertension; Z79.899 Other long term (current) drug therapy
CPT/HCPCS: 36415; 70450; 80053; 81003; 83690; 83735; 84484; 85025; 93005; 99283; 99284

== ENCOUNTER → 2025-05-04 19:05 | Outpatient (BNV) | payer OTHER, SELFPAY | PROVIDERS: PCP Internal Medicine; Visit Provider Student in an Organized Health Care Education/Training Program | DX: R51.9 Headache, unspecified (principal); I10 Essential (primary) hypertension; R42 Dizziness and giddiness | CPT/HCPCS: 70450 ==

== ENCOUNTER → 2025-05-04 19:05 | Outpatient (BNV) | payer OTHER, SELFPAY | PROVIDERS: Emergency Provider Emergency Medicine; PCP Internal Medicine; Visit Provider Internal Medicine Cardiovascular Disease | DX: R42 Dizziness and giddiness (principal) | CPT/HCPCS: 93010 ==

== ENCOUNTER 2025-05-15 12:55 | Outpatient (AMB) | payer OTHER, SELFPAY ==
--- OUTSIDE RECORDS SUMMARY | 2025-05-15 12:58 | XMS_ITS | Clinical Summary ---
Author Organization [facility] Address [address] [place] [address] Care Team Providers Care Thermite Bomb Loader Name Role Phone Radha Leal MD Primary Care Provider [phone] Social History Tobacco Use Types Packs/Day Years [...] (2023-2 5 season) 2024 Influenza Vaccine (#1) 2025 HIB Vaccines Aged Out No longer [...] 5 Years) and At-Risk Patients (6 to 49 Years) Aged Out No longer eligible b ased on patient's age to complete this topic RSV Immunization Patients Un odell 20 months Aged Out No longer eligible b ased on patient's age to complete this topic Varicella Vaccines Aged Out No longer eligible based on patient's age to complete this topic Care Teams Thermite Bomb Loader Relationship Specialty Start Date End Date Rahda Leal MD PCP - General Internal Medicine 12/03/17
[2025-05-15 13:08] VITALS: BP 108/70; PULSE 73; RESP 18; TEMP 36.8; O2SAT 99; BMI 32.2
--- NOTE | 2025-05-15 13:08 | A.OFFPC_ITS ---
Vital Signs 05/15/25 13:08 Height 5 ft 3 in Weight 182 lb BMI 32.2 BP 108/70 Blood Pressure Location Lt brachial Position Sitting Respiration 18 Pulse 73 Pulse Source Pulse Oximeter Temp 98.3 F Temp Source Oral Pulse Oximetry (%) 99 Oxygen Delivery Method Room Air Intake Visit Reasons: 3month follow up Intake Note: Pt is here today for 3 months follow up visit. Pt states that she has been having vaginal itching and burning. Allergies No Known Allergies (No Known Allergies*) Allergy (Mild, Verified 05/15/25 13:29) NOT APPLICABLE Medication List - Last Reconciled 05/15/25 by Liza Mosquera MD empagliflozin (Jardiance) 25 mg PO DAILY flash glucose sensor (FreeStyle Tad 2 Sensor kit) As directed FreeStyle [place] Lite (blood-glucose meter) As directed to test blood sugar NS FreeStyle Lite Strips (blood sugar diagnostic) test blood sugar once a day NS lancets (FreeStyle Lancets) test blood sugar once a day meloxicam 15 mg PO DAILY metformin 850 mg PO BID pravastatin 20 mg PO DAILY Tobacco use date assessed: 05/15/25 Dental Screening Dental Screen Date: 02/06/25 HPI 3month follow up HPI Details Patient presents for the follow-up of type 2 diabetes and hyperlipidemia. Patient has been following ADA diet but has not started exercising yet. She went to the emergency room last week because of elevated blood pressure. She has been monitoring her blood pressure at home and reports normal readings. Patient complains of perimenopausal symptoms: hot flashes insomnia mood swings and occasionally feeling depressed. [facility] Medical History Vitamin D deficiency Sigmoid thickening Constipation Anemia Hyperglycemia Hyperlipidemia Sciatica Anxiety Lung nodule seen on imaging study Annual physical exam Surgical History [place] teeth extracted History of appendectomy Family History Father HTN (hypertension) Mother HTN (hypertension) Brother No problems noted. Brother No problems noted. Son No problems noted. Son No problems noted. Daughter No problems noted. Social History Housing: Apartment Alcohol intake: never Patient Tobacco Use Status: Never used Tobacco e-Cigarette/Vaping Use: Never Used service: No Current occupational status: unemployed Gender identity: Female Cognitive needs: No Hearing needs: No Vision needs: Yes Female Reproductive History Menstrual Age of Menarche: 11 Questionnaire Thrive Questionnaire Date Thrive assessed: 01/30/25 I am a: Patient What is your living situation today?: I have a steady place to live Within the past 12 months, did the food you bought not last and you didn't have the money to get more?: Never true Within the past 12 months, did you worry whether your food would run out before you got money to buy more?: Never true Do you have trouble paying for medicines?: No Do you have trouble getting transportation to medical appointments?: No Do you have trouble paying your heating and electricity bill?: No Do you have trouble taking care of your child, family member or friend?: No Do you have trouble with day-to-day activities such as bathing, preparing meals, shopping, managing finances, etc.?: No Are you currently unemployed and looking for a job?: Yes Are you interested in more education?: No Please select the resources that you would like help with: None Currently or been in a relationship where the following occur: No concerns reported THRIVE Score: 0 CARMEN-7 AMB Questionnaire CARMEN-7 Date CARMEN - 7 assessed: 02/06/25 Source: Developed by Drs. Nicko Logan, Anika Wynn, Christopher Rodriguez and colleagues, with an educational yen from [employer]. Review of Systems Const All systems reviewed & are unremarkable except as noted in HPI and below ENT Reports no additional complaints Card Reports no additional complaints Resp Reports no additional complaints GI Reports no additional complaints Reports no additional complaints Physical exam (Primary Care) Vital Signs: Last Vital Signs Temp 98.3 F 05/15/25 13:08 Pulse 73 05/15/25 13:08 Resp 18 05/15/25 13:08 BP 108/70 05/15/25 13:08 Pulse Ox 99 05/15/25 13:08 Oxygen Delivery Method Room Air 05/15/25 13:08 BMI result Body Mass Index 32.2 Tobacco/Smoking Status: Tobacco use Status Tobacco use date assessed 05/15/25 05/15/25 13:44 Patient Tobacco Use Status Never used Tobacco 05/15/25 13:09 e-Cigarette/Vaping Use Never Used 05/15/25 13:09 Thrive Assessment: Date of Thrive Assessment Date Thrive assessed 01/30/25 05/15/25 13:09 Currently or been in a relationship where the following occur: No concerns reported Const General: no acute distress Resp Effort & Inspection: normal respiratory effort Auscultation: clear to auscultation bilaterally Cardio Rhythm: regular rhythm Heart sounds: S1 normal heart sound present and S2 normal heart sound present GI Inspection: Yes normal to inspection Results AMB Urinalysis, Automated UA Leukoctes 0 Curt/uL Last Edit by Batsheva Wen [facility] on 05/15/25 13:43 UA Nitrite Negative Last Edit by Batsheva Wen [facility] on 05/15/25 13:43 UA Urobilinogen 0.2 mg/dL Last Edit by Batsheva Wen [facility] on 05/15/25 13: 43 UA Protein 0 mg/dL Last Edit by Batsheva Wen [facility] on 05/15/25 13:43 UA pH 6.0 Last Edit by Batsheva Wen [facility] on 05/15/25 13:43 UA Blood 0 Misha/uL Last Edit by Batsheva Wen [facility] on 05/15/25 13:43 UA Specific [place] 1.030 Last Edit by Batsheva Wen [facility] on 05/15/25 13 :43 UA Ketone Negative Last Edit by Batsheva Wen [facility] on 05/15/25 13:43 UA Bilirubin 0 mg/dL Last Edit by Batsheva Wen [facility] on 05/15/25 13:43 UA Glucose 0 mg/dL Last Edit by Batsheva Wen [facility] on 05/15/25 13:43 AMB Hemoglobin A1c AMB Hemoglobin A1c 6.4 % Last Edit by Batsheva Wen [facility] on 05/15/25 14:1 2 Results Reviewed Results Reviewed: Laboratory Last Values Urine pH (Auto) 6.0 05/15/25 13:42 Specific [place] (Auto) 1.030 05/15/25 13:42 Urine Protein (Auto) 0 mg/dL 05/15/25 13:42 Glucose (UA)(Auto) 0 mg/dL 05/15/25 13:42 Urine Ketones (Auto) Negative 05/15/25 13:42 Urine Blood (Auto) 0 Misha/uL 05/15/25 13:42 Urine Nitrite (Auto) Negative 05/15/25 13:42 Urine Bilirubin (Auto) 0 mg/dL 05/15/25 13:42 Urine Urobilinogen (Auto) 0.2 mg/dL 05/15/25 13:42 Leukocyte Esterase (Auto) 0 Curt/uL 05/15/25 13:42 Coding Level of Care Code Est Pt Level 4 (58575) Diagnoses Hyperglycemia R73.9 Anemia D64.9 Perimenopausal N95.1 Assessment & Plan Assessment & Plan (1) Hyperglycemia: Code(s): R73.9 - Hyperglycemia, unspecified Category: Medical Plan: A1c is 6.4 today, continue ADA diet regular physical activity discussed with the patient continue Jardiance and metformin follow-up in 3 months with a fasting labs before (2) Anemia: Comment: Iron deficiency due to menorrhagia Code(s): D64.9 - Anemia, unspecified Category: Medical Plan: Check iron studies and monitor CBC (3) Perimenopausal: Code(s): N95.1 - Menopausal and female climacteric states Category: Medical Plan: Menopause management discussed with the patient. She was advised to start regular exercise and try [id number] Estroven supplement. Follow-up in 3 months Orders: Orders Comprehensive [place]. Panel Fast 3 Months D64.9 - Anemia, unspecified, E11.9 - Type 2 diabetes mellitus without complications, R73.9 - Hyperglycemia, unspecified AMB Urinalysis Automated Today Z13.9 - Encounter for screening, unspecified AMB Hemoglobin A1c Today Z13.9 - Encounter for screening, unspecified Hemoglobin A1c 3 Months D64.9 - Anemia, unspecified, E11.9 - Type 2 diabetes mellitus without complications, R73.9 - Hyperglycemia, unspecified Complete Blood Count Auto Diff 3 Months D64.9 - Anemia, unspecified, E11.9 - Type 2 diabetes mellitus without complications, R73.9 - Hyperglycemia, unspecified IRON PROFILE 3 Months D64.9 - Anemia, unspecified, E11.9 - Type 2 diabetes mellitus without complications, R73.9 - Hyperglycemia, unspecified Vitamin B12 and Folate 3 Months D64.9 - Anemia, unspecified, E11.9 - Type 2 diabetes mellitus without complications, R73.9 - Hyperglycemia, unspecified Lipid Panel 3 Months D64.9 - Anemia, unspecified, E11.9 - Type 2 diabetes mellitus without complications, R73.9 - Hyperglycemia, unspecified Microalbumin, Random (w Creat) 3 Months D64.9 - Anemia, unspecified, E11.9 - Type 2 diabetes mellitus without complications, R73.9 - Hyperglycemia, unspecified TSH reflex Free T4 3 Months D64.9 - Anemia, unspecified, E11.9 - Type 2 diabetes mellitus without complications, R73.9 - Hyperglycemia, unspecified
== END 2025-05-15 14:15 | disposition home or self-care (01) ==
LOC: HO.HMCC 12:56
PROVIDERS: PCP Internal Medicine; Visit Provider Internal Medicine
DX: R73.9 Hyperglycemia, unspecified (principal); D64.9 Anemia, unspecified; N95.1 Menopausal and female climacteric states; Z13.9 Encounter for screening, unspecified

== ENCOUNTER 2025-05-15 12:55 | Outpatient (REF) | payer OTHER, SELFPAY ==
[2025-05-15 17:28] LABS: Microalbum/Creatinine Ratio Ur 11.1 ug/mg cr (<30)
== END 2025-05-15 12:56 | disposition home or self-care (01) ==
LOC: HO.LNP 12:55
PROVIDERS: PCP Internal Medicine; Visit Provider Internal Medicine
DX: E11.65 Type 2 diabetes mellitus with hyperglycemia (principal); D64.9 Anemia, unspecified; N95.1 Menopausal and female climacteric states; Z13.9 Encounter for screening, unspecified
CPT/HCPCS: 81003; 82043; 82570; 83036; 99212

== ENCOUNTER 2025-07-02 15:27 | Emergency (ER) | payer OTHER, SELFPAY ==
[2025-07-02 15:35] VITALS: BP 184/77; PULSE 91; RESP 18; TEMP 36.9; O2SAT 98; BMI 29.1
--- NOTE | 2025-07-02 15:37 | ED.GENADULT ---
HPI - General Adult General Chief complaint: Upper Respiratory Symptoms Stated complaint: fever,cough Time Seen by Provider: 07/02/25 18:13 Source: patient, RN notes reviewed and old records reviewed Mode of arrival: ambulatory Limitations: no limitations History of Present Illness ED Provider: Cristiana SHARP narrative: Patient is a 44-year-old female presenting with complaint of cough which began yesterday, fever to 101 last night. Complains of chest pain with coughing episodes. Decreased appetite. Sore throat. sick with similar symptoms. BP elevated in triage, denies history of hypertension, is not on antihypertensive medication. Denies current headache, vision changes. MD complaint: Fever, cough Onset (ago): day(s) Related Data Previous Rx's ?Medication ?Instructions ?Recorded FreeStyle Blanco Lite #1 ea 06/16/22 (blood-glucose meter) FreeStyle Lite Strips (blood sugar #100 ea 07/29/24 diagnostic) lancets 28 gauge (FreeStyle #100 ea 07/29/24 Lancets) flash glucose sensor (FreeStyle #6 ea 08/07/24 Tad 2 Sensor kit) empagliflozin 25 mg tablet 25 mg PO DAILY #90 tabs 02/06/25 (Jardiance) meloxicam 15 mg tablet 15 mg PO DAILY #14 tabs 02/06/25 pravastatin 20 mg tablet 20 mg PO DAILY #90 tabs 02/06/25 metformin 850 mg tablet 850 mg PO BID #180 tabs 02/08/25 benzonatate 100 mg capsule 100 mg PO TID PRN cough #20 caps 07/02/25 Allergies Allergy/AdvReac Type Severity Reaction Status Date / Time No Known Allergies (No Known Allergy Mild NOT Verified 07/02/25 15:38 Allergies*) APPLICABLE Review of Systems Review of Systems: As per HPI Yes all other systems are reviewed and are negative Constitutional: Constitutional: Reports as per HPI [facility] Past Medical History Medical History Vitamin D deficiency Sigmoid thickening Constipation Anemia Hyperglycemia Hyperlipidemia Sciatica Anxiety Lung nodule seen on imaging study Annual physical exam Surgical History [place] teeth extracted History of appendectomy Family History Family History Father HTN (hypertension) Mother HTN (hypertension) Brother No problems noted. Brother No problems noted. Son No problems noted. Son No problems noted. Daughter No problems noted. Social History Social History Housing: Apartment Alcohol intake: never Patient Tobacco Use Status: Never used Tobacco e-Cigarette/Vaping Use: Never Used service: No Current occupational status: unemployed Gender identity: Female Cognitive needs: No Hearing needs: No Vision needs: Yes Physical Exam ED Vital Signs: Vital Signs - 24 hr 07/02/25 15:35 07/02/25 18:11 Temperature 98.4 F 98 F Pulse Rate 91 86 Respiratory Rate 18 18 Blood Pressure 184/77 H 153/79 H Pulse Oximetry 98 97 Oxygen Delivery Method Room Air Room Air BMI result Body Mass Index 29.1 Vital signs have been reviewed and appear to be correct. Blood pressure elevated. Heart rate normal. Respiratory rate normal. Temperature normal. Oxygen saturation normal. Const General: cooperative, healthy appearing and no acute distress Orientation/consciousness: oriented to person, oriented to place, oriented to time and patient oriented x3 Limitations: no limitations HENMT Head: Yes normocephalic and Yes atraumatic Ears: external ears normal, TM's normal bilaterally and EAC's normal General nose exam: Normal external nose present, Normal nasal mucous membranes and turbinates present and Normal septum present Face and sinus: Yes face symmetric Mouth: Normal oral and palatal mucosa present, oropharynx normal and moist mucous membranes Throat: Yes uvula midline, Yes abnormal tonsil (erythema without edema or exudate), No peritonsillar mass and No uvular edema Eyes Pupils: Equal, round and reactive pupils present Neck Neck: Yes normal visual inspection, Yes no lymphadenopathy and Yes supple Resp Effort & Inspection: normal respiratory effort and able to speak in complete sentences Auscultation: clear to auscultation bilaterally Cardio Rate: regular rate Rhythm: regular rhythm Heart sounds: S1 normal heart sound present and S2 normal heart sound present GI Palpation (GI): Soft to palpation and nontender Auscultation: normoactive bowel sounds General: Yes no CVA tenderness Back/Spine/Pelvis Back: no CVA tenderness Skin General skin exam: elasticity normal and turgor normal Neuro General: oriented to person, oriented to place, oriented to time, patient oriented x3, moves all extremities, no focal motor deficits and CN's II-XI intact bilaterally Cranial nerves: Yes Equal, round and reactive pupils present Cognition (Neuro): normal cognition Extrem General: Yes full ROM, Yes no pedal edema and Yes no calf tenderness Psych Mental Status: mental status grossly normal Affect: normal affect Thought process: Normal thought process present Course Course Course Narrative: This is a rapid medical exam performed by Bo Zendejas NP: Additional HPI, ROS, PE not included below will be deferred to primary provider. Patient is a 44-year-old female presenting with complaint of cough which began yesterday, fever to 101 last night. Complains of chest pain with coughing episodes. Decreased appetite. Sore throat. sick with similar symptoms. Plan: strep, flu, covid swabs Medical Decision Making Medical Decision Making [facility] Narrative: Patient is a 44-year-old female presenting with complaint of cough which began yesterday, fever to 101 last night. On exam patient is awake, A+Ox3, VS WNL, afebrile, normal neurological exam without focal deficits, physical exam findings as above. Given reported symptoms and physical exam findings, initial differential includes but is not limited to viral illness, COVID, flu, strep pharyngitis. Viral serology negative. Patient afebrile in the emergency department. Feel symptoms likely due to viral URI. Patient requesting prescription for benzonatate as states this has worked well for cough for her in the past. I am comfortable with this. Also advised adequate rest, adequate fluid intake and alternating Tylenol and ibuprofen as needed for fever. Advised follow up with PCP. Return precautions discussed. Patient verbalized understanding of and agreement with plan. Differential Diagnosis Differential Diagnoses: The differential diagnosis associated with the presentation includes As per [facility] Admission/Observation Consideration of admission/observation: Escalation of care including admission/observation considered Patient would have been admitted to the hospital had their clinical presentation warranted hospital admission. Lab Data [facility] Lab Attestation statement: I reviewed the patient's lab results. As per [facility] Labs: Lab Results 07/02/25 Range/Units 16:08 COVID-19 (DYLAN) Negative (Negative) COVID-19 Clin Com See Note Influenza Type A (MAURY) Negative (Negative) Influenza Type B (MAURY) Negative (Negative) Influenza A & B Note See Note S. pyogenes GrpA MAURY Negative (Negative) External Record Review External record reviewed: Inpatient record, Office record and Outpatient record Prescription Management I considered prescription management with: Other Discharge Plan Discharge Clinical Impression: Upper respiratory virus Patient Disposition: Home, Self-Care Instructions: Upper Respiratory Infection (DC), Viral Syndrome (ED) Additional Instructions: You were evaluated in the emergency department today for fever and cough. Your Covid, flu, and strep tests were all negative. Your symptoms are likely related to a viral illness which will resolve on its own with time and rest. You have been prescribed benzonatate for cough, KEEP THIS OUT OF THE REACH OF CHILDREN. You should ensure adequate fluid intake, and can use Tylenol 650 mg or ibuprofen 600 mg every 6 hours as needed for fever or discomfort. We also recommend using over the counter nasal saline spray to thin your mucous. Please follow-up with your primary care provider this week. Return to the emergency department if you develop chest pain, worsening shortness of breath, difficulty swallowing, fever 100.4? F or greater or any other concerning symptoms. Prescriptions: New benzonatate 100 mg capsule 100 mg PO TID PRN (Reason: cough) Qty: 20 0RF No Action (DME) blood-glucose meter [FreeStyle Blanco Lite] Kit See Rx Instructions .Route Qty: 1 0RF Rx Instructions: As directed to test blood sugar (DME) lancets [FreeStyle Lancets] 28 gauge misc See Rx Instructions .Route Qty: 100 3RF Rx Instructions: test blood sugar once a day (DME) FreeStyle Lite Strips Strip See Rx Instructions .Route Qty: 100 3RF Rx Instructions: test blood sugar once a day (DME) FreeStyle Tad 2 Sensor Kit See Rx Instructions .Route Qty: 6 3RF Rx Instructions: As directed metformin 850 mg tablet 850 mg PO BID Qty: 180 1RF Jardiance 25 mg tablet 25 mg PO DAILY Qty: 90 3RF pravastatin 20 mg tablet 20 mg PO DAILY Qty: 90 3RF meloxicam 15 mg tablet 15 mg PO DAILY Qty: 14 0RF Print Language: Turkish
[2025-07-02 16:31] LABS: IDNOW Serial# 6674DD1D; Strep A Nucleic Acid Negative (Negative)
[2025-07-02 16:41] LABS: IDNOW Serial# 55D5AD1C; Influenza B2 Negative (Negative)
[2025-07-02 16:44] LABS: COVID-19 Test Negative (Negative); IDNOW Serial# 08D9AD1C
[2025-07-02 18:11] VITALS: BP 153/79; PULSE 86; RESP 18; TEMP 36.6; O2SAT 97
--- OUTSIDE RECORDS SUMMARY | 2025-07-02 18:18 | XMS_ITS | Clinical Summary ---
Author Organization [facility] ity Address [address] [place] [address] Care Team Providers Care Salesperson Furs Name Role Phone Radha Leal MD Primary [...] 2000 COVID-19 Vaccine (2023-2 5 season) 2024 Depression Screening 10/29/2024 Influenza Vaccine (#1) 2025 HIB Vaccines Aged [...] age to complete this topic Care Teams Salesperson Furs Relationship Specialty Start Date End Date Radha Leal MD PCP - General Internal Medicine 12/03/17
[2025-07-02 18:20] VITALS: BP 153/79; PULSE 86; RESP 18; TEMP 36.6; O2SAT 97
[2025-07-02 18:20] LABS: Glucose, Whole Blood 112 mg/dL (60-115)
== END 2025-07-02 18:21 | disposition home or self-care (01) ==
PROVIDERS: Registered Nurse Emergency; Emergency Provider Emergency Medicine; PCP Internal Medicine
DX: J06.9 Acute upper respiratory infection, unspecified (principal); J02.9 Acute pharyngitis, unspecified; R50.9 Fever, unspecified; R05.9 Cough, unspecified; Z03.818 Encounter for observation for suspected exposure to other biological agents ruled out
CPT/HCPCS: 82947; 87502; 87635; 87651; 99282; 99283

== ENCOUNTER 2025-09-02 07:54 | Outpatient (REF) | payer OTHER, SELFPAY ==
--- OUTSIDE RECORDS SUMMARY | 2025-09-02 07:59 | XMS_ITS | Clinical Summary ---
Author Organization [facility] ity Address [address] [place] [address] Care Team Providers Care Development Coordinator Name Role Phone Radha Leal MD Primary [...] Cervical Cancer Screening: P ap Smear 2000 HPV Vaccines (1 - 3-dose SCD M series) 2006 Depression Screening 10/29/2024 COVID-19 Vaccine ( - 2023-2 5 season) 2025 Influenza Vaccine (#1) 2025 RSV Immunization Adult Patie nts (1 - 1-dose 75+ series) 2054 HIB Vaccines Aged Out No longer eligi [...] age to complete this topic Care Teams Development Coordinator Relationship Specialty Start Date End Date Radha Leal MD PCP - General Internal Medicine 12/03/17
[2025-09-02 10:31] LABS: MANUAL DIFF FLAG NO
[2025-09-02 10:56] LABS: Hematocrit 34.6 % (37.0-47.0); Hemoglobin 10.0 g/dl (12.0-16.0); Imm Gran Abs Auto 0.02 X10*3/uL (0.00-0.03); Imm Gran Pct Auto 0.3 % (0.0-0.4); Lymphocytes Absolute Auto 2.0 X10*3/uL (1.2-4.9); Mean Corpuscular HGB Conc 28.9 g/dl (31.0-35.0); Mean Corpuscular Hemoglobin 19.2 pg (27.0-33.0); Mean Corpuscular Volume 66.3 fL (80.0-98.0); NRBC Abs Auto 0.000 X10*3/uL (0.0-0.012); NRBC Pct Auto 0.0 /100WBC (0.0-0.2); Platelet Count 421 X10*3/uL (160-400); Red Blood Count 5.22 X10*6/uL (4.20-5.50); White Blood Count 7.0 X10*3/uL (4.8-10.8)
[2025-09-02 11:39] LABS: Alanine Aminotransferase 21 U/L (0-31); Albumin Level 4.2 g/dL (3.5-5.0); Alkaline Phosphatase 120 U/L (39-117); Anion Gap 13 (12-20); Aspartate Amino Transferase 37 U/L (5-31); Blood Urea Nitrogen 11 mg/dL (9-16); Calcium 8.7 mg/dL (8.4-10.2); Carbon Dioxide 24 mmol/L (22-29); Chloride 110 mmol/L (96-108); Cholesterol 200 mg/dL (<200); Estimated Glomerular Filt Rate > 60; HDL Cholesterol 41 mg/dL (>40); Iron 33 mcg/dL (30-160); Percent Iron Saturation 8 % (15-50); Potassium 5.2 mmol/L (3.3-5.1); Sodium 142 mmol/L (135-145); Total Iron Binding Capacity 410 mcg/dL (228-428); Total Protein 7.7 g/dL (6.5-8.0); Triglycerides 154 mg/dL (<150); Unsaturated Iron Binding 377 ug/dL
[2025-09-02 11:43] LABS: Folate 4.8 ng/mL (> or = 4.0); Vitamin B12 181 pg/mL (200-900)
[2025-09-02 12:37] LABS: Free T4 (Free Thyroxine) 0.93 ng/dL (0.71-1.85)
== END 2025-09-02 07:55 | disposition home or self-care (01) ==
LOC: HO.HMGCLDS 07:54
PROVIDERS: PCP Internal Medicine; Visit Provider Internal Medicine
DX: E11.9 Type 2 diabetes mellitus without complications (principal); D64.9 Anemia, unspecified; E78.5 Hyperlipidemia, unspecified; E53.8 Deficiency of other specified B group vitamins; I10 Essential (primary) hypertension
CPT/HCPCS: 36415; 80053; 80061; 82607; 82746; 83036; 83540; 84439; 84443; 85025; 99212

== ENCOUNTER 2025-09-02 12:34 | Outpatient (AMB) | payer OTHER, SELFPAY ==
[2025-09-02 12:43] VITALS: BP 140/84; PULSE 70; O2SAT 100; BMI 29.4
--- NOTE | 2025-09-02 12:43 | A.OFFPC_ITS ---
Vital Signs 09/02/25 12:43 Height 5 ft 6 in Weight 182 lb BMI 29.4 BP 140/84 H Pulse 70 Pulse Source Pulse Oximeter Pulse Oximetry (%) 100 Intake Visit Reasons: 3month follow up, resched Patrol Inspector Required: No Accompanied by: Self / Same As Patient Allergies No Known Allergies (No Known Allergies*) Allergy (Mild, Verified 09/02/25 12:44) NOT APPLICABLE Medication List - Last Reconciled 09/02/25 by Liza Mosquera MD cyanocobalamin (vitamin B-12) 1,000 mcg PO DAILY empagliflozin (Jardiance) 25 mg PO DAILY flash glucose sensor (FreeStyle Tad 2 Sensor kit) As directed FreeStyle Aptos Lite (blood-glucose meter) As directed to test blood sugar NS FreeStyle Lite Strips (blood sugar diagnostic) test blood sugar once a day NS lancets (FreeStyle Lancets) test blood sugar once a day metformin 850 mg PO BID pravastatin 20 mg PO DAILY Tobacco use date assessed: 09/02/25 Dental Screening Dental Screen Date: 09/02/25 HPI 3month follow up, resched HPI Details Pt presents for f/u DM2. Pt c/o perimenopausal symptoms, insomnia, fatigue. Patient has been following ADA diet but not exercising regularly PFSH Medical History HTN (hypertension) Vitamin D deficiency Sigmoid thickening Constipation Anemia Hyperglycemia Hyperlipidemia Sciatica Anxiety Lung nodule seen on imaging study Annual physical exam Surgical History [place] teeth extracted History of appendectomy Family History Father HTN (hypertension) Mother HTN (hypertension) Brother No problems noted. Brother No problems noted. Son No problems noted. Son No problems noted. Daughter No problems noted. Social History Housing: Apartment Alcohol intake: never Patient Tobacco Use Status: Never used Tobacco e-Cigarette/Vaping Use: Never Used service: No Current occupational status: unemployed Gender identity: Female Cognitive needs: No Hearing needs: No Vision needs: Yes Female Reproductive History Menstrual Age of Menarche: 11 Questionnaire PHQ-9 Over the last 2 weeks, how often have you been bothered by any of the following problems? 1. Little interest or pleasure in doing things: not at all 2. Feeling down, depressed, or hopeless: not at all 3. Trouble falling or staying asleep, or sleeping too much: not at all 4. Feeling tired or having little energy: not at all 5. Poor appetite or overeating: not at all 6. Feeling bad about yourself - or that you are a failure or have let yourself or your family down: not at all 7. Trouble concentrating on things, such as reading the newspaper or watching television: not at all 8. Moving or speaking so slowly that other people could have noticed. Or the opposite - being so fidgety or restless that you have been moving around a lot more than usual: not at all 9. Thoughts that you would be better off or of hurting yourself in some way: not at all Total score: 0 Depression Screening Interpretation: Negative Depression Screening Done: Yes 64308 - PHQ-9 Billing: Patient declined-do not bill Source: Developed by Drs. Nicko Logan, Anika Wynn, Christopher Rodriguez and colleagues, with an educational yen from [employer]. Thrive Questionnaire Date Thrive assessed: 01/30/25 I am a: Patient What is your living situation today?: I have a steady place to live Within the past 12 months, did the food you bought not last and you didn't have the money to get more?: Never true Within the past 12 months, did you worry whether your food would run out before you got money to buy more?: Never true Do you have trouble paying for medicines?: No Do you have trouble getting transportation to medical appointments?: No Do you have trouble paying your heating and electricity bill?: No Do you have trouble taking care of your child, family member or friend?: No Do you have trouble with day-to-day activities such as bathing, preparing meals, shopping, managing finances, etc.?: No Are you currently unemployed and looking for a job?: Yes Are you interested in more education?: No Please select the resources that you would like help with: None Currently or been in a relationship where the following occur: No concerns reported THRIVE Score: 0 CARMEN-7 AMB Questionnaire CARMEN-7 Date CARMEN - 7 assessed: 02/06/25 Feeling nervous, anxious, or on edge: 0 = Not at all Not being able to stop or control worryin = Not at all Worrying too much about different things: 0 = Not at all Trouble relaxin = Not at all Being so restless that it is hard to sit still: 0 = Not at all Becoming easily annoyed or irritable: 0 = Not at all Feeling afraid as if something awful might happen: 0 = Not at all Total CARMEN-7 score (0-4 normal; 5-9 mild; 10-14 moderate; 15-21 severe): 0 Source: Developed by Drs. Nicko Logan, Anika Wynn, Christopher Rodriguez and colleagues, with an educational yen from [employer]. Review of Systems Const All systems reviewed & are unremarkable except as noted in HPI and below Eyes Reports no additional complaints ENT Reports no additional complaints Card Reports no additional complaints Resp Reports no additional complaints GI Reports no additional complaints Reports no additional complaints Physical exam (Primary Care) Vital Signs: Last Vital Signs Pulse 70 09/02/25 12:43 BP 140/84 H 09/02/25 12:43 Pulse Ox 100 09/02/25 12:43 BMI result Body Mass Index 29.4 Tobacco/Smoking Status: Tobacco use Status Tobacco use date assessed 09/02/25 09/02/25 12:49 Patient Tobacco Use Status Never used Tobacco 09/02/25 12:44 e-Cigarette/Vaping Use Never Used 09/02/25 12:44 PHQ-9: PHQ-9 Score PHQ-9: Total score 0 09/02/25 12:49 Depression Screening Interpretation: Negative Thrive Assessment: Date of Thrive Assessment Date Thrive assessed 01/30/25 09/02/25 12:44 Currently or been in a relationship where the following occur: No concerns reported Const General: no acute distress HENMT Head: Yes normal to inspection Mouth: Normal oral and palatal mucosa present Neck Neck: Yes supple Resp Effort & Inspection: normal respiratory effort Auscultation: clear to auscultation bilaterally Cardio Rhythm: regular rhythm Heart sounds: S1 normal heart sound present and S2 normal heart sound present GI Inspection: Yes normal to inspection Palpation (GI): Soft to palpation Coding Level of Care Code Est Pt Level 4 (52043) Diagnoses Hyperlipidemia E78.5 DM type 2 (diabetes mellitus, type 2) E11.9 Vitamin B 12 deficiency E53.8 Essential hypertension I10 Hypertension type: essential hypertension Anemia D64.9 Assessment & Plan Assessment & Plan (1) Hyperlipidemia: Code(s): E78.5 - Hyperlipidemia, unspecified Category: Medical Plan: Start 20 mg of pravastatin low-cholesterol diet discussed with the patient repeat lipid profile in 2 months (2) DM type 2 (diabetes mellitus, type 2): Code(s): E11.9 - Type 2 diabetes mellitus without complications Category: Medical Plan: A1c is 6.5. Continue current medications ADA diet increase physical activity and weight loss discussed with the patient (3) Vitamin B 12 deficiency: Code(s): E53.8 - Deficiency of other specified B group vitamins Category: Medical Plan: Start oral vitamin B12 check the level in 2 months (4) HTN (hypertension): Code(s): I10 - Essential (primary) hypertension Category: Medical Qualifiers: Hypertension type: essential hypertension Qualified Code(s): I10 - Essential (primary) hypertension Plan: Patient reports normal blood pressure readings at home. Valsartan 40 mg daily will be started. Patient was advised to have basic metabolic panel checked in 2 weeks follow low-sodium diet increase physical activity and lose weight (5) Anemia: Comment: Iron deficiency due to menorrhagia Code(s): D64.9 - Anemia, unspecified Category: Medical Plan: Repeat CBC iron count and B12 level in 2 months Orders: Orders Basic Metabolic Panel 2 Weeks I10 - Essential (primary) hypertension Lipid Panel 2 Months E11.9 - Type 2 diabetes mellitus without complications, E53.8 - Deficiency of other specified B group vitamins, E78.5 - Hyperlipidemia, unspecified Vitamin B12 and Folate 2 Months E11.9 - Type 2 diabetes mellitus without complications, E53.8 - Deficiency of other specified B group vitamins, E78.5 - Hyperlipidemia, unspecified Comprehensive Met. Panel 2 Months E11.9 - Type 2 diabetes mellitus without complications, E53.8 - Deficiency of other specified B group vitamins, E78.5 - H yperlipidemia, unspecified Complete Blood Count Auto Diff 2 Months E11.9 - Type 2 diabetes mellitus without complications, E53.8 - Deficiency of other specified B group vitamins, E78.5 - Hyperlipidemia, unspecified IRON PROFILE 2 Months D64.9 - Anemia, unspecified Medications: New pravastatin 20 mg PO DAILY 90 tabs 0RF cyanocobalamin (vitamin B-12) 1,000 mcg PO DAILY 90 tabs 1RF valsartan 40 mg PO DAILY 60 tabs 0RF
--- OUTSIDE RECORDS SUMMARY | 2025-09-02 15:13 | XMS_ITS | Clinical Summary ---
Author Organization [facility] Address [address] [place] [address] Care Team Providers Care Administrative Assistant Receptionist Name Role Phone Radha Leal MD Primary [...] 72 06/07/2018 11:50 AM EDT Temperature 36.6 C (97.8 F) 05/30/2018 11:04 AM EDT Respiratory Rate 12 06/07/2018 11:50 AM EDT [...] SCREENING/FOLLOWUP 10/29/2024 SOCIAL NEEDS SCREENING 10/29/2024 INFLUENZA (#1) 2025 PNEUMOCOCCAL VACCINE FOR HIG H RISK PATIENTS (#1) 2044 Care Teams Administrative Assistant Receptionist Relationship Specialty Start Date End Date Radha Leal MD PCP - General Internal Medicine 12/03/17
--- OUTSIDE RECORDS SUMMARY | 2025-09-02 15:13 | XMS_ITS | Encounter Summary ---
Author Organization [facility] Address [address] [place] [address] Care Team Providers Care Bulk Sausage Casing Tier Off Name Role Phone Radha Leal MD Primary Care Provider Unavail able Reason for Visit * Reason Onset Date Comments TEST RESULTS 03/01/2018 Encounter Details Date Type Department Care Team Description 03/01/2018 Telephone OBGYN - [facility] [address] [place] [address] Radha Leal MD TEST RESULTS Social History [...] performed: 02/28/2018 Where was the test performed: [place] Who ordered this test?: Lorie Musa Is [...] on filedocumented in this encounter Care Teams Bulk Sausage Casing Tier Off Relationship Specialty Start Date End Date Radha Leal MD PCP - General Internal Medicine 12/03/17 documented as of this encounter
--- OUTSIDE RECORDS SUMMARY | 2025-09-02 15:13 | XMS_ITS | Encounter Summary ---
Author Organization [facility] Address [facility] [place] [address] Care Team Providers Care Grinder Operator Tool Name Role Phone Radha Leal MD Primary Care Provider Unavail able Encounter Details Date Type Department Care Team Description 12/05/2017 Release of Information Medical Records [address] [place] [id number] Abstract, Provider Social History Tobacco Use Types Packs/Day Years Used Date Smoking Tobacco: Never Assessed Sex Assigned at Date Recorded Not on file documented as of this encounter Plan of Treatment Not on file documented as of this encounter Visit Diagnoses Not on filedocumented in this encounter Care Teams Grinder Operator Tool Relationship Specialty Start Date End Date Radha Leal MD PCP - General Internal Medicine 12/03/17 documented as of this encounter
== END 2025-09-02 13:38 | disposition home or self-care (01) ==
LOC: HO.HMCC 12:35
PROVIDERS: PCP Internal Medicine; Visit Provider Internal Medicine
DX: E78.5 Hyperlipidemia, unspecified (principal); E11.9 Type 2 diabetes mellitus without complications; E53.8 Deficiency of other specified B group vitamins; I10 Essential (primary) hypertension; D64.9 Anemia, unspecified